=== PATIENT | male | born 1975 | race Caucasian/White ===

== ENCOUNTER 2021-07-10 18:19 | Emergency (ER) | payer BC, SELFPAY ==
--- NOTE | 2021-07-10 18:24 | ED.SKABFB ---
HPI - Skin/Abscess/Foreign Bdy General Chief complaint: Skin/Abscess/Foreign Body Stated complaint: Finger on right Hand swollen from a cut Time Seen by Provider: 07/10/21 18:25 Source: patient and RN notes reviewed History of Present Illness HPI narrative: Patient is a 46-year-old male who presents the urgent care with complaints of swelling and redness to the right index finger. Patient states he cut it sometime last week , Friday or Friday. 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 Patient states that he has been using peroxide and Neosporin. States that he has been covering it with a Band-Aid. Denies of any fever, nausea, vomiting. Patient does take hydrocodone for pain. No other acute complaints. No acute distress noted. Patient under the plan of care. Some parts of this dictation were generated by voice recognition software and may contain typographical and/or grammatical inaccuracies. Related Data Home Medications Medication Instructions Recorded Confirmed albuterol sulfate 90 mcg INHALATION DIRECTED PRN 07/10/21 07/10/21 alprazolam 0.5 mg PO BID 07/10/21 07/10/21 diclofenac sodium 75 mg PO BID 07/10/21 07/10/21 hydrocodone-acetaminophen 7.5 tablet PO Q8-10H 07/10/21 07/10/21 Allergies Allergy/AdvReac Type Severity Reaction Status Date / Time No Known Allergies Allergy Verified 07/10/21 18:32 Review of Systems Review of Systems: CONSTITUTIONAL: Denies fever, chills, or sweats. EYES: Denies visual changes, redness, or discharge. ENT: Denies rhinorrhea, congestion, sore throat, or otalgia. CARDIOVASCULAR: Denies chest pain, palpitations, or edema. RESPIRATORY: Denies cough or dyspnea. GASTROINTESTINAL: Denies abdominal pain, nausea, vomiting, or diarrhea. GENITOURINARY: Denies dysuria or hematuria. SKIN: Reports as redness and swelling surrounding the cut to the right index finger MUSCULOSKELETAL: Denies back pain, joint pain, or myalgia. NEUROLOGIC: Denies headache, numbness, or weakness. All other systems reviewed are negative, except as documented in HPI. PMFSH Comments At the time of my signature, I reviewed and agree with the nursing past medical, surgical, social, and family history. There is no relevant family history pertinent to the patient complaint. Exam Narrative: GENERAL: This is a well-nourished, well-developed patient, in no apparent distress. HEAD: normocephalic, atraumatic. EYES: PERRL. Sclera clear/white. Vision is grossly intact. EARS: External ears normal NOSE: External nose normal with no obvious nasal discharge, nares without redness, no rhinorrhea. THROAT: Mucous membranes moist NECK: Neck supple CARDIOVASCULAR: Regular rate and rhythm without murmurs, gallops, or rubs. RESPIRATORY: Clear to auscultation. Breath sounds equal bilaterally. No wheezes, rales, or rhonchi. SKIN: 0.25 cm open wound to the distal aspect of the right index finger with surrounding erythema and edema NEURO: awake, alert, and oriented to person, place and time. There were no obvious focal neurologic abnormalities. EXTREMITIES: No clubbing, cyanosis, or edema. Capillary refill the right upper extremity within normal limits with positive strong right radial pulse. No obvious deformity or noted to the right index finger. Course Vital Signs Vital signs: Vital Signs Temperature 98.4 F 07/10/21 18:28 Pulse Rate 83 07/10/21 18:28 Respiratory Rate 20 07/10/21 18:28 Blood Pressure 138/85 07/10/21 18:28 Pulse Oximetry 100 07/10/21 18:28 Temperature 98.4 F 07/10/21 18:28 Pulse Rate 83 07/10/21 18:28 Respiratory Rate 20 07/10/21 18:28 Blood Pressure 138/85 07/10/21 18:28 Pulse Oximetry 100 07/10/21 18:28 Reviewed MDM - Skin/Abscess/Foreign Bdy MDM Narrative Medical decision making narrative: Advised the patient to keep the wound very clean with plain Dial soap and water. Stop the use of peroxide. Use the prescription cream
[2021-07-10 18:28] VITALS: BP 138/85; PULSE 83; RESP 20; TEMP 36.9; O2SAT 100
== END 2021-07-10 18:43 | disposition home or self-care (01) ==
PROVIDERS: Emergency Provider Nurse Practitioner Family; PCP Family Medicine
DX: L03.011 Cellulitis of right finger (principal)
CPT/HCPCS: 99213; G0463

== ENCOUNTER 2022-02-16 13:21 | Emergency (ER) | payer BC, SELFPAY ==
--- NOTE | ~2022-02-16 | US_ITS ---
US abdomen limited DATE: 02/16/2022 14:44 INDICATION: Epigastric abdominal pain. Nausea. TECHNIQUE: Real-time imaging of liver, pancreas, gallbladder, Doppler analysis COMPARISON: None FINDINGS: No hepatic or pancreatic space-occupying mass lesion is detected. Normal hepatopedal portal venous flow direction. The gallbladder is appears relatively contracted and the gallbladder wall mildly prominent thickness of 1.8 mm, possibly due to contracted state. No gallstones or pericholecystic fluid. Negative sonogra phic Valdes's sign. The common bile duct measures 5.3 mm, normal. IMPRESSION: Limited distention of the gallbladder; otherwise negative Reviewed, dictated and finalized at [facility] Reviewed, dictated and finalized at [facility].
--- NOTE | ~2022-02-16 | CT_ITS ---
EXAMINATION: CTA chest PE abdomen pel DATE: 02/16/2022 15:45 INDICATION: Midsternal chest pressure. Chest pain, abdominal pain, body aches, lethargy. Elevated d-d clive. TECHNIQUE: Computed tomography angiography (CTA) of the chest was performed with 100 mL Omnipaque-350 intravenous contrast timed to evaluate the pulmonary arteries. Coronal maximum intensity projection 3D-reconstructions were created by the technologist. Automated exposure control and iterative reconst ruction technique were employed. Exam dose: 2161.48 mGy-cm total exam DLP. COMPARISON: 02/16/2022 2 view chest FINDINGS: There is diagnostic contrast enhancement of the pulmonary arteries and no evidence of pulmo nary embolism. No thoracic aortic aneurysm or dissection. Normal heart size. No pericardial or pleural effusion. No hilar or mediastinal mass lesion or lymphadenopathy. No pulmonary infiltrate or consolidation or pulmonary mass lesion is evident. Normal morphology of the adrenal glands. Included upper abdominal structures are unremarkable. Degenerative changes of the lower cervical spine, the thoracic spine particularly prominent degenerat idania disc disease of the included upper lumbar spine. No suspicious osteolytic or osteoblastic lesions . IMPRESSION: No evidence of pulmonary embolism Reviewed, dictated and finalized at [facility] Reviewed, dictated and finalized at [facility].
--- NOTE | ~2022-02-16 | XR_ITS ---
EXAMINATION: XR chest 2V 02/16/2022 13:43 INDICATION: Worsening chest pain PROCEDURE: 2 view chest COMPARISON: No prior studies for comparison. FINDINGS: The lungs are clear. The cardiomediastinal silhouette is within normal limits. There are no pleural effusions. There is no pneumothorax suspected. IMPRESSION: 1: NO ACUTE CARDIOPULMONARY DISEASE. Reviewed, dictated and finalized at [facility].
--- NOTE | 2022-02-16 13:23 | ECG_ITS ---
Measurements Intervals [place] Rate: 73 P: 51 [place]: 154 QRS: 44 QRSD: 109 T: 27 QT: 379 QTc: 418 Interpretive Statements SINUS RHYTHM SEPTAL MYOCARDIAL INFARCTION , OF INDETERMINATE AGE [40+ ms Q WAVE IN V1/V2] ABNORMAL ECG NO PREVIOUS ECG AVAILABLE FOR COMPARISON Electronically Signed On 02-17-2022 12:28:10 CDT by Karan Kate M.D.
[2022-02-16 13:36] VITALS: BP 143/99; PULSE 72; RESP 18; O2SAT 99
[2022-02-16 13:38] VITALS: PULSE 70
[2022-02-16 13:42] VITALS: PULSE 67; RESP 18; O2SAT 98
[2022-02-16 13:50] LABS: Basophils Percent Auto 0.4 % (0.2-1.2); Eosinophils Absolute Auto 0.1 K/mm3 (0-0.3); Eosinophils Percent Auto 0.7 % (0-4.4); Hematocrit 48.2 % (42.0-52.0); Hemoglobin 16.3 g/dL (14.0-18.0); Immature Granulocyte Absolute 0.02 K/mm3 (0.00-0.031); Immature Granulocyte Percent A 0.2 % (0-0.5); Lymphocytes Absolute Auto 1.85 K/mm3 (0.9-3.2); Lymphocytes Percent Auto 20.7 % (18.3-44.2); Mean Corpuscular HGB Conc 33.8 g/dl (32-36); Mean Corpuscular Hemoglobin 32.8 pg (26-34); Monocytes Absolute Auto 0.7 K/mm3 (0.1-0.6); Monocytes Percent Auto 7.3 % (2.6-8.5); Neutrophils Absolute Auto 6.3 K/mm3 (1.3-6.7); Neutrophils Percent Auto 70.7 % (45.5-73.1); Platelet Count Result 198 k/mm3 (150-375); Red Blood Count 4.97 M/mm3 (4.6-6.20); Red Cell Distribution Width 13.3 % (11.5-14.5); White Blood Count 8.9 K/mm3 (4.5-10.0)
[2022-02-16 14:00] LABS: Alanine Aminotransferase 29 U/L (4-50); Albumin Level 4.6 g/dL (3.5-5.1); Alkaline Phosphatase 57 U/L (38-126); Anion Gap 5 mmol/L (8-16); Aspartate Amino Transferase 34 U/L (17-59); Bilirubin,Total 0.5 mg/dL (0.2-1.3); Blood Urea Nitrogen 17 mg/dL (9-20); Calcium 9.2 mg/dL (8.4-10.2); Carbon Dioxide 30 mmol/L (22-30); Chloride 104 mmol/L (98-107); Estimated Glomerular Filt Rate > 60; Glucose 111 mg/dL (65-110); Lipase 188 U/L (23-300); Potassium 4.2 mmol/L (3.4-5.0); Prothrombin Time 13.1 Seconds (11.1-14.7); Sodium 139 mmol/L (137-145)
[2022-02-16] MEDS: KETOROLAC 30 MG/ML VIAL (*BKC) IV PUSH (14:07)
[2022-02-16] MEDS: SODIUM CHLORIDE 0.9% IV 1,000 ML 999 ML IV CONT (14:07)
[2022-02-16] MEDS: ONDANSETRON INJ 4 MG/2 ML VIAL IV PUSH (14:08)
[2022-02-16 14:11] LABS: Troponin I 0.014 ng/mL (0.000-0.034)
[2022-02-16 14:12] VITALS: BP 156/108; PULSE 59; RESP 26; O2SAT 100
[2022-02-16 14:16] VITALS: BP 147/106; PULSE 79; RESP 14; O2SAT 100
[2022-02-16 15:03] VITALS: O2SAT 100
[2022-02-16 15:15] LABS: D Dimer 0.53 ug/mL (<0.48)
--- NOTE | 2022-02-16 16:49 | ED.CHESTPAIN ---
HPI - Chest Pain General Chief Complaint: Chest Pain Stated Complaint: chest pain, nausea x1 week intermittently Time Seen by Provider: 02/16/22 13:27 Source: RN notes reviewed History of Present Illness HPI narrative: Patient presents emergency department from home for intermittent chest pain. Patient states for the past 2 weeks he has been having intermittent episodes were he gets a tightness in his lower chest is associated with a feeling of shortness of breath and nausea states that nothing seems to cause these episodes recur nothing makes it better or worse states he has several day he denies any fevers or chills, vomiting diarrhea or any other symptoms. States he has had similar episodes before in the past has been worked up including stress test that have been negative. He states he does have feelings of being anxious with the symptoms but denies any full panic attack Related Data Home Medications Medication Instructions Recorded Confirmed albuterol sulfate 90 mcg INHALATION DIRECTED PRN 07/10/21 07/10/21 alprazolam 0.5 mg PO BID 07/10/21 07/10/21 cyclobenzaprine 5 mg PO TID 07/10/21 07/10/21 diclofenac sodium 75 mg PO BID 07/10/21 07/10/21 hydrocodone-acetaminophen 7.5 tablet PO Q8-10H 07/10/21 07/10/21 tramadol 50 mg PO TID 07/10/21 07/10/21 Allergies Allergy/AdvReac Type Severity Reaction Status Date / Time No Known Allergies Allergy Verified 07/10/21 18:32 Review of Systems Review of Systems: Gen.: Denies fevers or chills Eyes: Denies eye pain or visual change ENT: Denies congestion Respiratory: Reports feeling shortness of breath or chest pain CV: Reports lower midsternal chest pain GI: Denies abdominal pain reports nausea denies vomiting or diarrhea Musculoskeletal: Denies back pain or muscle pain Neuro: Denies numbness, tingling, weakness or focal weakness Skin: Denies rash Except as documented, all other systems reviewed and negative PMF Past Medical History Medical History (Updated 02/16/22 @ 17:38 by Jarad Harkins DO) Patient denies significant medical history Social History Social History (Updated 02/16/22 @ 17:38 by Jarad Harkins DO) Smoking status: Current every day smoker Gender identity (if verbalized by the patient): Male Exam Narrative: APPEARANCE: No acute distress, nontoxic, resting in bed EYES: EOMI HEENT: Normocephalic, atraumatic, OMM RESPIRATORY: No respiratory distress Clear to auscultation bilaterally with no rhonchi wheezing or rales. CARDIOVASCULAR: Regular rate and rhythm without murmurs rubs or gallops. ABDOMINAL: Soft, nontender, nondistended, no rebound or guarding MUSCULOSKELETAl: Moves all extremities. No clubbing, cyanosis or edema. NEURO: Awake and alert. Following commands, speech normal, no focal deficits SKIN:: Warm, dry. No rashes lesions or abrasions PSYCHIATRIC: Normal affect/mood, Course Course Emergency Course: Discussed with patient he states he has had stress test performed past has been negative for similar symptoms Discussed with Dr. Kate agrees with consult Discussed with patient patient and family results of work-up discussed need for admission. This time patient states he does not wish to stay in the hospital as he had work-ups before that have been negative and does not want to stay overnight in the facility. Patient has chosen to refuse further care. Risks of an incomplete evaluation and treatment were discussed with the patient including potential for myocardial infarction or permanent disability were discussed with the patient seems to understand these risks but still desires to refuse further care. Patient recommended to follow up with her primary care physician in the next possible interval, specifically they?re told they can return to the ED at any time to resume care.. Patient was given discharge instructions and AMA form was filled out. The patient was given cardiology for referral and told he may return anytime for f
[2022-02-16 16:50] LABS: Troponin I 0.014 ng/mL (0.000-0.034)
== END 2022-02-16 17:37 | disposition home or self-care (01) ==
PROVIDERS: Emergency Medicine; Emergency Provider Emergency Medicine; PCP Nurse Practitioner Family
DX: R07.89 Other chest pain (principal); F17.200 Nicotine dependence, unspecified, uncomplicated; R94.31 Abnormal electrocardiogram [ECG] [EKG]
CPT/HCPCS: 36415; 71046; 71275; 74177; 76705; 80053; 83690; 84484; 85025; 85380; 85610; 85730; 87804; 93005; 96361; 96374; 96375; 99284; A9270; J1885; J2405; J7030; Q9967

== ENCOUNTER 2022-02-18 10:11 | Observation (INO) | payer BC, SELFPAY ==
[2022-02-18] VITALS (10 sets, daily range): BP systolic 112–154; BP diastolic 78–102; PULSE 65–79; RESP 14–20; TEMP 36.4–37.3; O2SAT 97–99; BMI 38.5
--- NOTE | ~2022-02-18 | XR_ITS ---
EXAMINATION: XR chest 2V 02/18/2022 10:41 INDICATION: Midsternal chest pain PROCEDURE: 2 view chest COMPARISON: 02/16/2022 FINDINGS: The lungs are clear. The lungs are hyperinflated which is consistent with, but not diagnost ic of chronic obstructive pulmonary disease. The cardiomediastinal silhouette is within normal limits . There are no pleural effusions. There is no pneumothorax suspected. IMPRESSION: 1: NO ACUTE CARDIOPULMONARY DISEASE. Reviewed, dictated and finalized at [facility].
--- NOTE | ~2022-02-18 | NM_ITS ---
EXAMINATION: NM iman stress w perfusion DATE: 02/19/2022 11:19 CDT INDICATION: Chest pain TECHNIQUE: Rest images were obtained following intravenous administration of 8.9 mCi Tc99m tetrofosmi n (Myoview). The patient was infused intravenously with Lexiscan (regadenoson). Then, 29.3 mCi Tc99m tetrofosmin (Myoview) was administered intravenously, and stress images were obtained. Data was recon structed into short axis and horizontal and vertical long axis SPECT images. Gated SPECT images were also obtained. COMPARISON: None. FINDINGS: There is no definite reversible or fixed perfusion abnormality to suggest ischemia or infar ction. There is no segmental wall motion abnormality. Left ventricular ejection fraction measures 4 9%. IMPRESSION: 1. No definite ischemia or infarct. 2. Diminished left ventricular ejection fraction measuring 49%. Reviewed, dictated and finalized at location A.
--- NOTE | 2022-02-18 10:15 | ECG_ITS ---
Measurements Intervals [place] Rate: 70 P: 50 [place]: 142 QRS: 37 QRSD: 110 T: 30 QT: 383 QTc: 416 Interpretive Statements SINUS RHYTHM NORMAL ECG COMPARED TO ECG 02/16/2022 13:29:20 SLIGHTLY DIFFERENT LEAD PLACEMENT V2 Electronically Signed On 02-18-2022 15:43:10 CDT by Jorge Pisano M.D.
[2022-02-18 10:30] LABS: Basophils Absolute Auto 0.1 K/mm3 (0.0-0.1); Basophils Percent Auto 0.7 % (0.2-1.2); Eosinophils Absolute Auto 0.1 K/mm3 (0-0.3); Eosinophils Percent Auto 1.2 % (0-4.4); Hematocrit 47.4 % (42.0-52.0); Hemoglobin 16.4 g/dL (14.0-18.0); Immature Granulocyte Absolute 0.02 K/mm3 (0.00-0.031); Immature Granulocyte Percent A 0.2 % (0-0.5); Lymphocytes Absolute Auto 1.82 K/mm3 (0.9-3.2); Lymphocytes Percent Auto 21.1 % (18.3-44.2); Mean Corpuscular HGB Conc 34.6 g/dl (32-36); Mean Corpuscular Hemoglobin 33.3 pg (26-34); Mean Corpuscular Volume 96.1 fl (80-100); Mean Platelet Volume 10.8 fl (7.4-10.4); Monocytes Absolute Auto 0.6 K/mm3 (0.1-0.6); Monocytes Percent Auto 7.4 % (2.6-8.5); Neutrophils Percent Auto 69.4 % (45.5-73.1); Platelet Count Result 195 k/mm3 (150-375); Red Blood Count 4.93 M/mm3 (4.6-6.20); Red Cell Distribution Width 13.2 % (11.5-14.5); White Blood Count 8.6 K/mm3 (4.5-10.0)
[2022-02-18 10:43] LABS: Alanine Aminotransferase 26 U/L (4-50); Albumin Level 4.4 g/dL (3.5-5.1); Alkaline Phosphatase 56 U/L (38-126); Anion Gap 8 mmol/L (8-16); Aspartate Amino Transferase 29 U/L (17-59); Bilirubin,Total 0.6 mg/dL (0.2-1.3); Blood Urea Nitrogen 18 mg/dL (9-20); Calcium 8.8 mg/dL (8.4-10.2); Carbon Dioxide 23 mmol/L (22-30); Chloride 107 mmol/L (98-107); Estimated CRCL calculation 186 ml/min; Estimated Glomerular Filt Rate > 60; Glucose 120 mg/dL (65-110); Lipase 196 U/L (23-300); Potassium 3.9 mmol/L (3.4-5.0); Sodium 138 mmol/L (137-145)
[2022-02-18 10:54] LABS: Troponin I 0.013 ng/mL (0.000-0.034)
[2022-02-18] MEDS: LIDOCAINE HCL 2% VISC SOLN 15 ML UDC 20 ML PO (11:48)
[2022-02-18] MEDS: MAG HYDROX/AL HYDROX/SIMETH 30 ML UDC PO (11:48)
[2022-02-18 12:01] LABS: Prothrombin Time 13.2 Seconds (11.1-14.7)
[2022-02-18 12:02] LABS: Partial Thromboplastin Time 28.8 SECONDS (22.3-36.8)
--- NOTE | 2022-02-18 12:07 | ED.CHESTPAIN ---
HPI - Chest Pain General Chief Complaint: Chest Pain Stated Complaint: chest pain, left AMA on 02/16 Time Seen by Provider: 02/18/22 11:32 Source: patient History of Present Illness HPI narrative: Patient presents with intermittent chest pain that is achy, no radiation, no clear aggravating or relieving factors. It is associated with some shortness of breath and upper abdominal pain as well as nausea. Denies any fevers, cough, congestion, diaphoresis denies any significant family history denies any recent hospitalizations prior history of DVT. Does report he is a smoker. Patient was previous evaluated for this a couple days ago here in the ER had a CTA as well as 2 troponins with a recommendation for admission for further evaluation. Patient declined and signed out AMA. His pain got worse since that evaluation so he returned to the ER. Related Data Home Medications Medication Instructions Recorded Confirmed albuterol sulfate 90 mcg INHALATION DIRECTED PRN 07/10/21 02/18/22 alprazolam 0.5 mg PO BID PRN 07/10/21 02/18/22 cyclobenzaprine 5 mg PO TID PRN 07/10/21 02/18/22 diclofenac sodium 75 mg PO BID 07/10/21 02/18/22 hydrocodone-acetaminophen 7.5 tablet PO TID 07/10/21 02/18/22 Allergies Allergy/AdvReac Type Severity Reaction Status Date / Time No Known Allergies Allergy Verified 02/18/22 16:23 Review of Systems Review of Systems: CONSTITUTIONAL: Denies fever, chills, or sweats. EYES: Denies visual changes, redness, or discharge. ENT: Denies rhinorrhea, congestion, sore throat, or otalgia. CARDIOVASCULAR: Denies palpitations, or edema. RESPIRATORY: Denies cough GASTROINTESTINAL: Denies abdominal pain, nausea, vomiting, or diarrhea. GENITOURINARY: Denies dysuria or hematuria. SKIN: Denies rash or itching. MUSCULOSKELETAL: Denies back pain, joint pain, or myalgia. NEUROLOGIC: Denies headache, numbness, dizziness, or weakness. PSYCHIATRIC: Denies anxiety or depression. All systems reviewed & are unremarkable except as noted in HPI and below PMFSH Past Medical History Medical History Anxiety Chronic knee pain Surgical History Surgical History History of arthroscopy of left knee X3 History of tonsillectomy Family History Family History Father Accidental in work place Social History Social History (Updated 02/18/22 @ 19:05 by Gaby Swartz PA-C) Social History: Surrogate decision-maker: Jocelyn Saleh, significant other. CODE STATUS: Full code Smoking packs per day: 2 Smoking cigarettes per day: 40.0 Years smoked: 30 Smoking pack-years: 60.00 Smoking status: Current every day smoker Alcohol intake: never Substance use: former Additional living arrangements comments: The patient lives with his family in [place]. 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 Spiritual care concerns: No Exam Narrative: GENERAL: Well-appearing, well-nourished, and in no acute distress. HEAD: Normocephalic, atraumatic. EYES: PERRLA and EOMI. ENT: Nares clear, no rhinorrhea or epistaxis. Mucous membranes moist. NECK: Supple. No masses. No JVD CHEST: Clear to auscultation. No respiratory distress. No wheezes rales or rhonchi HEART: Regular rate and rhythm. No murmur heard. Normal peripheral pulses. ABDOMEN: Soft, nontender, nondistended, normal active bowel sounds. EXTREMITIES: Normal range of motion. No edema. SKIN: Warm, dry, no rash. NEURO: No focal deficits. Alert and oriented x3. PSYCH: Normal mood and affect. Course Reevaluation(s) Reevaluation #1: Case cussed with cardiology and hospitalist team. Given the prior recommendation for admission and symptoms persistent patient benefit from expedited cardiac evaluation. Patient is now comfortable with inpatient plan. Patient was accep
--- NOTE | 2022-02-18 12:35 | PM.IMHP ---
H&P: HPI History of Present Illness Date/Time: 02/18/22 12:35 Chief Complaint: Chest pain. Narrative: This is a 46-year-old male with anxiety and chronic knee pain for which he takes diclofenac twice daily who presented to the emergency department via private vehicle from home for evaluation of chest pain. He endorses intermittent chest pain that has been off and on for approximately 2 months. He sees no pattern as to when it occurs and he specifically has not noticed that it is worse with activity or meals. He has a difficult time describing the discomfort but it sounds like it is a pretty significant aching discomfort with occasional radiation up into the shoulders. He was seen in the emergency department for the symptoms several days ago where he had negative troponin and and aside from diverticulosis of the colon the CT of the chest, abdomen, and pelvis were unremarkable. On exam he is quite tender to palpation in the high epigastric region and with further questioning he does admit to occasional bloating and belching though he denies indigestion symptoms. 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 He drinks at least a cup of coffee of day and up to 4 to 6 Monster drinks a day He has not noticed any blood in the stool. He has no personal or family history of coronary artery disease. Review of Systems Review of Systems: Twelve systems were reviewed and are negative except for as per HPI. [facility] Past Medical History Medical History Anxiety Chronic knee pain Surgical History Surgical History History of arthroscopy of left knee X3 History of tonsillectomy Family History Family History Father Accidental in work place Social History Social History (Updated 02/18/22 @ 19:05 by Gaby Swartz PA-C) Social History: Surrogate decision-maker: Jocelyn Saleh, significant other. CODE STATUS: Full code Smoking packs per day: 2 Smoking cigarettes per day: 40.0 Years smoked: 30 Smoking pack-years: 60.00 Smoking status: Current every day smoker Alcohol intake: never Substance use: former Additional living arrangements comments: The patient lives with his family in [place]. 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 Spiritual care concerns: No Meds Home Medications and Allergies Home Medications Medication Instructions Recorded Confirmed Type albuterol sulfate 90 mcg INHALATION DIRECTED PRN 07/10/21 02/18/22 History alprazolam 0.5 mg PO BID PRN 07/10/21 02/18/22 History cyclobenzaprine 5 mg PO TID PRN 07/10/21 02/18/22 History diclofenac sodium 75 mg PO BID 07/10/21 02/18/22 History hydrocodone-acetaminophen 7.5 tablet PO TID 07/10/21 02/18/22 History Allergies Allergy/AdvReac Type Severity Reaction Status Date / Time No Known Allergies Allergy Verified 02/18/22 16:23 Vital Signs Vital Signs - 24 hr 02/18/22 10:20 Temperature 97.6 F Pulse Rate 73 Respiratory Rate 18 Blood Pressure 154/102 H Pulse Oximetry 97 Exam Narrative: General: Moderately ill-appearing male lying on his left side in bed. Weight: 129.5 kg. BMI: 37.7 HEENT: PERRL, EOMI. Sclerae anicteric. Tacky mucous membranes. Neck: Supple. Full sepulveda. Respiratory: Lungs are clear to auscultation bilaterally. Cardiovascular: Regular rate and rhythm with S1-S2. Chest: No tenderness to palpation over the chest wall. Gastrointestinal: Abdomen is soft and nondistended with positive bowel sounds. He is quite tender to palpation in the epigastric region. No guarding or rebound tenderness. Skin: Warm and dry. No rash or lesions on limited exam. Extremities: No cyanosis, clubbing, or edema. Radial and p
[2022-02-18] MEDS: ASPIRIN 81 MG CHEWABLE TABLET 324 MG PO (13:14)
[2022-02-18] MEDS: HYDROmorphone HCL INJ (*CRX) 1 MG/ML SYR IV PUSH ×2 (13:36→20:00)
[2022-02-18] MEDS: PANTOPRAZOLE SODIUM IV 40 MG VIAL IV PUSH (13:38)
[2022-02-18 13:48] LABS: Troponin I 0.013 ng/mL (0.000-0.034)
--- NOTE | 2022-02-18 14:45 | ADMGEN ---
This patient, Desmond Figueroa, was admitted to IMU Room 212-01. Patient/family oriented to hospital policies and general routines including ID bracelet, bed and alarms, visiting hours, pain management, procedures, bathroom and other care routines, personal items, smoking policy, room service/diet, and visiting hours. Information on how to activate the Rapid Response Team has been discussed. Patient/Family are encouraged to report perceived risks to care and to ask questions if they do not understand what they are told or what they should do.
--- NOTE | 2022-02-18 15:13 | PM.CNCAR ---
Assessment and Plan Assessment and plan (1) Chest pain: Qualifiers: Chest pain type: unspecified Qualified Code(s): R07.9 - Chest pain, unspecified Code(s): R07.9 - Chest pain, unspecified Status: Acute Assessment and Plan: His chest pain is atypical. Serial troponins are negative and his EKG did not have any acute ischemic changes. Chest pain is probably non-cardiac (wonder if GERD?) but will proceed with nuclear stress test tomorrow, he does have some risk factors. Check echo Has not had routine follow up with PCP, will check lipids Lexiscan stress test tomorrow NPO after mn for stress test Further recommendations to follow review of these tests (2) Chronic knee pain: Code(s): M25.569 - Pain in unspecified knee; G89.29 - Other chronic pain Status: Acute Assessment and Plan: Multiple arthroscopes in the past. Pt. states he needs bilat knee total arthroplasty. Takes [place] at home. Management per hospitalist. (3) Tobacco abuse: Code(s): Z72.0 - Tobacco use Status: Acute Assessment and Plan: Counseling was performed History of Present Illness History of Present Illness Consult date/time: 02/18/22 15:13 Requesting physician: Camilo Urrutia MD Consult reason: chest pain Reason For Visit: Chest pain Narrative: Mr. Figueroa is a 46-year-old male with no significant medical history. This is a patient who presents to the emergency department with complaints of chest pain. He did come into the emergency room here at [facility] over the weekend where inpatient admission for evaluation and workup of his chest pain was recommended but the patient left against medical advice. Mr. Figueroa states that he has been having chest pain intermittently for 3-5 months. His chest pain is mild in severity but has become concerning as it has persisted for this length of time. 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 He also has complaints of experiencing lightheadedness and like he is going to pass out after lifting very heavy objects. He says that over the past 6 months or so he is notice that is becoming more difficult for him to lift heavy objects as he becomes extremely fatigued and sometimes short of breath. He does not experience chest pain with this type of activity. His chest pain comes and goes randomly and does not seem to be provoked by physical activity. He reports lower extremity pitting edema that comes and goes. He denies any orthopnea or paroxysmal nocturnal dyspnea. Although the patient does not have any known medical history he does share with me that he has an extensive history of competitive weightlifting, the training for which involved use of injected anabolic steroids for a period of about 20 years. He has an extensive history of tobacco abuse. Currently, patient is not experiencing any chest pain and is comfortable, in no distress. Review of Systems Review of Systems: All systems reviewed & are unremarkable except as noted in HPI and below Constitutional: Constitutional: Reports fatigue and Reports lethargy Eyes: Eyes: Denies change in vision ENT: Reports Normal hearing present, Denies epistaxis and Denies tinnitus Cardiovascular: Cardiovascular: Reports chest pain, Reports pedal edema, Reports leg edema, Reports lightheadedness and Denies palpitations Respiratory: Respiratory: Denies chest congestion, Reports dyspnea and Reports dyspnea on exertion Gastrointestinal: Gastrointestinal: Denies melena, Denies hematochezia and Reports nausea Genitourinary: Genitourinary: Denies urinary frequency, Denies urinary hesitancy and Denies urinary urgency Musculoskeletal: Musculoskeletal: Reports back pain and Reports arthralgias Integumentary/Breasts: Skin/Breast: Denies unusual bruising and Denies wounds Neurologic: Denies confusion, Denies headache(s) and Denies numbness Psychiatric: Psychiatric: De
[2022-02-18 16:34] LABS: Troponin I 0.013 ng/mL (0.000-0.034)
[2022-02-18 16:51] LABS: Cholesterol 183 mg/dL (0-200); HDL Direct 42 mg/dL; Triglycerides 94 mg/dL (<150)
[2022-02-18 17:07] LABS: LDL Cholesterol Direct 97 mg/dL
[2022-02-18] MEDS: ALPRAZolam (*CRX) 0.5 MG TABLET PO (22:55)
[2022-02-19] VITALS (7 sets, daily range): BP systolic 131–145; BP diastolic 88–97; PULSE 74–88; RESP 14–18; TEMP 36.7–36.8; O2SAT 99–100
--- NOTE | 2022-02-19 | EST_ITS ---
Patient Info Name: Desmond Figueroa Age: 46 years : 1975 Gender: Male Ht: 73 in Wt: 285 lbs BSA: 2.63 m2 HR: 73 bpm BP: 111 / 85 mmHg Heart Rhythm: Sinus Rhythm Exam Date: 02/19/2022 10:04 AM Exam Location: [facility] Stress Patient Status: Inpatient Admit Date: 02/18/2022 Staff Ordering Physician: Carolyn Todd Attending Provider: Anton Felder MD Exercise Technologist: Pari Gonzales, CT Exam Type: CA stress iman w NM Study Info Indications R07.89 - Other chest pain A regadenoson stress test was performed. Summary 1. Please correlate with nuclear medicine images, reported separately. 2. No abnormal ST-T wave changes with lexiscan. Protocol: Lexiscan Stress ECG Details Stage: REST Duration (min): 1 min : 3 sec HR (bpm): 75 SBP (mmHg): 111 DBP (mmHg): 85 Stage: REST Duration (min): 4 min : 59 sec HR (bpm): 74 SBP (mmHg): 111 DBP (mmHg): 85 Stage: STAGE 1 Duration (min): 1 min : 0 sec HR (bpm): 86 SBP (mmHg): 126 DBP (mmHg): 87 Stage: RECOVERY Duration (min): 1 min : 0 sec HR (bpm): 96 SBP (mmHg): 126 DBP (mmHg): 87 Stage: RECOVERY Duration (min): 2 min : 0 sec HR (bpm): 93 SBP (mmHg): 126 DBP (mmHg): 87 Stage: RECOVERY Duration (min): 3 min : 0 sec HR (bpm): 86 SBP (mmHg): 137 DBP (mmHg): 86 Stage: RECOVERY Duration (min): 3 min : 8 sec HR (bpm): 85 SBP (mmHg): 137 DBP (mmHg): 86 Rest HR: 74 bpm Peak HR: 100 bpm Rest Sys BP: 111 mmHg Peak Sys BP: 137 mmHg Max Pred HR: 175 bpm % Max Pred HR: 57 % Target HR: 149 bpm Max RPP: 13,700 bpm*mmHg BP Response: Normal blood pressure response Termination Reason: Completed protocol Cardiac Symptoms: None Total Time: 1 min : 0 sec Rest Fuentes BP: 85 mmHg Peak Fuentes BP: 86 mmHg Total Dose: 0.4 mg Resting ECG Normal sinus rhythm. Resting ST/T wave changes. Meets criteria for left ventricular hypertrophy. Cannot rule out inferior infarction. Stress ECG No abnormal ST/T wave changes with Lexiscan. Arrhythmias None. Report Signatures
--- NOTE | 2022-02-19 | ECHO_ITS ---
Patient Info Name: Desmond Figueroa Age: 46 years : 1975 Gender: Male Ht: 73 in Wt: 285 lbs BSA: 2.63 m2 HR: 76 bpm BP: 143 / 88 mmHg Heart Rhythm: Sinus Rhythm Technical Quality: Fair Exam Date: 02/19/2022 6:20 AM Exam Location: [facility] Pulmonary Patient Status: Inpatient Admit Date: 02/18/2022 Staff Ordering Physician: Carolyn Todd [employer] Worker: Darlene Daniel RDCS Attending Provider: Anton Felder MD Referring Physician: Peyton RIVERA; Exam Type: CA echo doppler color flow Study Info Indications - cp Complete two-dimensional, color flow and Doppler transthoracic echocardiogram is performed. Summary 1. Complete two-dimensional, color flow and Doppler transthoracic echocardiogram is performed. 2. Left ventricular chamber dimension is normal. 3. Left ventricular systolic function is normal, estimated at 55-60%. 4. There is no increased left ventricular wall thickness. 5. Left ventricular septal wall motion is abnormal with septal motion related to bundle branch block. 6. The left ventricular diastolic function is grade I diastolic dysfunction. 7. There is mild tricuspid valve regurgitation. 8. Moderate pulmonary hypertension, estimated pulmonary arterial systolic pressure is 49 mmHg. Left Ventricle Left ventricular chamber dimension is normal. Left ventricular systolic function is normal, estimated at 55-60%. There is no increased left ventricular wall thickness. Left ventricular septal wall motion is abnormal with septal motion related to bundle branch block. The left ventricular diastolic function is grade I diastolic dysfunction. Right Ventricle Right ventricular chamber dimension is normal. Right ventricular systolic function is normal. Left Atria Left atrial chamber dimension is normal. Right Atria Right atrial chamber dimension is normal. Atrial Septum Intact interatrial septum visualized by color flow imaging. Aortic Valve The aortic valve is trileaflet. There is no aortic valve sclerosis. There is no aortic valve stenosis. There is trace aortic valve regurgitation. Pulmonic Valve The pulmonic valve is normal. There is no pulmonic valve stenosis. There is trace pulmonic regurgitation. Mitral Valve The mitral valve has thickened leaflets. There is no mitral valve stenosis. There is trace mitral valve regurgitation. Tricuspid Valve The tricuspid valve leaflets are normal. There is no significant tricuspid valve stenosis. There is mild tricuspid valve regurgitation. Moderate pulmonary hypertension, estimated pulmonary arterial systolic pressure is 49 mmHg. Pericardium/Pleural The pericardium appears normal. There is no pericardial effusion. Inferior Vena Cava Dilated inferior vena cava with <50% collapse upon inspiration consistent with elevated right atrial pressure, 15 mmHg. Aorta The aortic root size at the sinus of Valsalva is normal. Left Ventricular Outflow Tract Name Value Normal LVOT 2D LVOT Diameter 2.4 cm LVOT Doppler LVOT Peak Gradient 6 mmHg LVOT Mean Gradient 3 mmHg
[2022-02-19] MEDS: HYDROmorphone HCL INJ (*CRX) 1 MG/ML SYR IV PUSH (05:14)
[2022-02-19 05:29] LABS: Hematocrit 44.6 % (42.0-52.0); Hemoglobin 15.2 g/dL (14.0-18.0); Mean Corpuscular HGB Conc 34.1 g/dl (32-36); Mean Corpuscular Hemoglobin 32.9 pg (26-34); Mean Corpuscular Volume 96.5 fl (80-100); Mean Platelet Volume 10.8 fl (7.4-10.4); Platelet Count Result 181 k/mm3 (150-375); Red Blood Count 4.62 M/mm3 (4.6-6.20); Red Cell Distribution Width 13.2 % (11.5-14.5); White Blood Count 8.4 K/mm3 (4.5-10.0)
[2022-02-19 05:48] LABS: Anion Gap 6 mmol/L (8-16); Blood Urea Nitrogen 15 mg/dL (9-20); Calcium 8.5 mg/dL (8.4-10.2); Carbon Dioxide 25 mmol/L (22-30); Chloride 107 mmol/L (98-107); Estimated CRCL calculation 189 ml/min; Estimated Glomerular Filt Rate > 60; Glucose 102 mg/dL (65-110); Magnesium 2.3 mg/dL (1.6-2.3); Potassium 3.9 mmol/L (3.4-5.0); Sodium 138 mmol/L (137-145)
--- NOTE | 2022-02-19 08:02 | ECG_ITS ---
Measurements Intervals [place] Rate: 81 P: 15 OH: 142 QRS: 21 QRSD: 106 T: 34 QT: 372 QTc: 433 Interpretive Statements SINUS RHYTHM NONSPECIFIC INTRAVENTRICULAR CONDUCTION DELAY ABNORMAL ECG COMPARED TO ECG 02/18/2022 10:24:46 NO SIGNIFICANT CHANGES Electronically Signed On 02-19-2022 11:21:18 CDT by Karan Kate M.D.
--- NOTE | 2022-02-19 10:19 | PM.PNCARD ---
Progress Note: A&P Assessment and Plan (1) Chest pain: Qualifiers: Chest pain type: unspecified Qualified Code(s): R07.9 - Chest pain, unspecified Code(s): R07.9 - Chest pain, unspecified Status: Acute Assessment and Plan: His chest pain is atypical. Serial troponins are negative and his EKG did not have any acute ischemic changes. Chest pain is probably non-cardiac (wonder if GERD?) but will proceed with nuclear stress test tomorrow, he does have some risk factors. Echo performed this morning, awaiting results Lexiscan stress test performed this morning - further recommendations to follow review of results. Not having chest pain this morning (2) Chronic knee pain: Code(s): M25.569 - Pain in unspecified knee; G89.29 - Other chronic pain Status: Acute Assessment and Plan: Multiple arthroscopes in the past. Pt. states he needs bilat knee total arthroplasty. Takes [place] at home. Management per hospitalist. (3) Tobacco abuse: Code(s): Z72.0 - Tobacco use Status: Acute Assessment and Plan: Counseling was performed Subjective Date/time seen: 02/19/22 10:19 Cardiology follow up for chest pain Patient feels well this morning does not have any complaints. Specifically, he denies chest pain and shortness of breath. Review of Systems Review of Systems: All systems reviewed & are unremarkable except as noted in HPI and below Constitutional: Constitutional: Reports fatigue, Denies headache(s) and Reports lethargy Eyes: Eyes: Denies change in vision ENT: Reports Normal hearing present, Denies headache(s), Denies lip swelling, Denies epistaxis and Denies tinnitus Cardiovascular: Cardiovascular: Reports chest pain, Reports pedal edema, Reports leg edema, Reports lightheadedness, Denies palpitations, Reports dyspnea and Reports dyspnea on exertion Respiratory: Respiratory: Denies chest congestion, Reports dyspnea and Reports dyspnea on exertion Gastrointestinal: Gastrointestinal: Denies melena, Denies hematochezia and Reports nausea Genitourinary: Genitourinary: Denies urinary frequency, Denies urinary hesitancy and Denies urinary urgency Musculoskeletal: Musculoskeletal: Reports back pain, Reports arthralgias and Denies numbness Integumentary/Breasts: Skin/Breast: Denies unusual bruising and Denies wounds Neurologic: Reports Normal hearing present, Denies confusion, Denies headache(s) and Denies numbness Psychiatric: Psychiatric: Denies anxiety, Denies confusion and Denies depression Endocrine: Endocrine: Reports fatigue, Denies flushing and Denies palpitations Hematologic/Lymphatic: Hematologic/Lymphatic: Denies easy bleeding and Denies easy bruising Allergic/Immunologic: Allergic/Immunologic: Denies lip swelling Exam Const: General: comfortable and no acute distress; No confusion Orientation/consciousness: No confusion HENMT: Head: normal to inspection and normocephalic Ears: hearing grossly normal bilaterally Eyes: General: appearance normal, both eyes and all related structures Pupils: Equal, round and reactive pupils present Neck: Neck: supple Thyroid: thyroid normal Resp: Effort & Inspection: normal respiratory effort Auscultation: clear to auscultation bilaterally Cardio: Rate: regular rate Rhythm: regular rhythm Heart sounds: no murmurs GI: Auscultation: normal bowel sounds Skin: General skin exam: normal color Neuro: General: No confusion Cranial nerves: Yes Equal, round and reactive pupils present and Yes Normal hearing present Cognition (Neuro): normal cognition Extrem: General: normal to inspection Psych: Mental Status: mental status grossly normal Affect: normal affect Objective Data Vital Signs Vital Signs: Vital Signs - 24 hr 02/18/22 10:20 02/18/22 12:22 02/18/22 14:00 Temperature 36.4 C Pulse Rate 73 65 79 Respiratory Rate 18 17 Blood Pressure 154/102 H 147/97 H Pulse Oximetry 97 99 02/18
--- NOTE | 2022-02-19 13:19 | PM.DS ---
DS: Admitting Diagnosis Discharge Date 02/19/22 Admitting Diagnosis CHEST PAIN DS: Discharge Diagnosis Discharge Diagnosis (1) Chest pain: Qualifiers: Chest pain type: unspecified Qualified Code(s): R07.9 - Chest pain, unspecified Code(s): R07.9 - Chest pain, unspecified Status: Acute Assessment and Plan: 46-year-old male with anxiety and chronic knee pain for which he takes diclofenac twice daily who presented to the emergency department via private vehicle from home for evaluation of chest pain. He endorses intermittent chest pain that has been off and on for approximately 2 months. cardiology rounded on patient - explained Discussed results of lexiscan stress test with patient - no definite ischemia or infarct. Also discussed echo results - normal LVEF with grade I diastolic noncompliance. Pt let AMA soon after hearing these results. (2) Epigastric pain: Code(s): R10.13 - Epigastric pain Status: Acute Assessment and Plan: Pt had abdominal us, CXR, CT of chest abdomen and pelvis all normal (3) Chronic knee pain: Code(s): M25.569 - Pain in unspecified knee; G89.29 - Other chronic pain Status: Chronic (4) Anxiety: Code(s): F41.9 - Anxiety disorder, unspecified Status: Chronic DS: Summary Hospital Course Hospital Course: 46-year-old male with anxiety and chronic knee pain for which he takes diclofenac twice daily who presented to the emergency department via private vehicle from home for evaluation of chest pain. He endorses intermittent chest pain that has been off and on for approximately 2 months. cardiology rounded on patient - explained Discussed results of lexiscan stress test with patient - no definite ischemia or infarct. Also discussed echo results - normal LVEF with grade I diastolic noncompliance. Pt let AMA soon after hearing these res Time Spent with Patient Time attestation: Total time spent providing and/or coordinating discharge services: 20 minutes Exam Narrative: General: Moderately ill-appearing male lying on his left side in bed. Respiratory: Lungs are clear to auscultation bilaterally. Cardiovascular: Regular rate and rhythm with S1-S2. Chest: No tenderness to palpation over the chest wall. Gastrointestinal: Abdomen is soft and nondistended with positive bowel sounds. He is quite tender to palpation in the epigastric region. No guarding or rebound tenderness. Skin: Warm and dry. No rash or lesions on limited exam. Extremities: No cyanosis, clubbing, or edema. Radial and pedal pulses intact. Neurological: Alert. Cranial nerves 2-12 are grossly intact. No gross focal deficits to casual conversation. Psychiatric: Pleasant and cooperative with normal mood and affect. DS: Data Data Completed and Pending Labs on day of discharge: Labs from last 24 hours 02/19/22 02/19/22 02/18/22 05:13 05:13 16:04 WBC 8.4 RBC 4.62 Hgb 15.2 Hct 44.6 MCV 96.5 MCH 32.9 MCHC 34.1 RDW 13.2 Plt Count 181 MPV 10.8 H Sodium 138 Potassium 3.9 Chloride 107 Carbon Dioxide 25 Anion Gap 6 L BUN 15 Creatinine 0.60 L Estim Creat Clear Calc 189 Estimated GFR > 60 Glucose 102 Calcium 8.5 Magnesium 2.3 Troponin I 0.013 Triglycerides Cholesterol LDL Cholesterol Direct HDL Direct 02/18/22 02/18/22 16:00 13:19 WBC RBC Hgb Hct MCV MCH MCHC RDW Plt Count MPV Sodium Potassium Chloride Carbon Dioxide Anion Gap BUN Creatinine Estim Creat Clear Calc Estimated GFR Glucose Calcium Magnesium Troponin I 0.013 Triglycerides 94 Cholesterol 183 LDL Cholesterol Direct 97 HDL Direct 42 Discharge Plan Discharge Attending physician on discharge: Kirsten Huang Consulting providers: Karan Kate ; James Cisse Discharging Clinician: Kirsten Huang
--- NOTE | 2022-02-19 14:13 | PC.NURSE ---
Patient notified of risks of leaving AMA. Dr. Huang notified. Follow up instructions given to patient and recommended patient follow up with primary care physician. Cardiology office to call with follow up appointment. Patient signed AMA form and form placed in chart.
== END 2022-02-19 13:04 | disposition left against medical advice (07) ==
LOC: ANHED 12:21 → ANHIMU 12:48
PROVIDERS: Nurse Practitioner; Physician Assistant; Admitting Provider Family Medicine; Emergency Provider Emergency Medicine; PCP Nurse Practitioner Family; Visit Provider Family Medicine
DX: R07.9 Chest pain, unspecified (principal); R10.13 Epigastric pain; M25.569 Pain in unspecified knee; G89.29 Other chronic pain; F41.9 Anxiety disorder, unspecified; I36.1 Nonrheumatic tricuspid (valve) insufficiency; I27.20 Pulmonary hypertension, unspecified; Z79.51 Long term (current) use of inhaled steroids; Z86.718 Personal history of other venous thrombosis and embolism; F17.210 Nicotine dependence, cigarettes, uncomplicated; Z53.29 Procedure and treatment not carried out because of patient's decision for other reasons
CPT/HCPCS: 36415; 71046; 78452; 80048; 80053; 80061; 83690; 83735; 84484; 85025; 85027; 85610; 85730; 93005; 93017; 93306; 96374; 96375; 96376; 99285; A9270; A9502; C9113; G0378; G0379; J1170; J2785

== ENCOUNTER 2022-05-23 18:15 | Emergency (ER) | payer BC, SELFPAY ==
[2022-05-23 18:28] VITALS: BP 123/76; PULSE 80; RESP 20; TEMP 37.1; O2SAT 98
--- NOTE | 2022-05-23 18:52 | ED.SKABFB ---
HPI - Skin/Abscess/Foreign Bdy General Chief complaint: Skin/Abscess/Foreign Body Stated complaint: rash Time Seen by Provider: 05/23/22 18:52 Source: patient Mode of arrival: ambulatory Limitations: no limitations History of Present Illness HPI narrative: 46 yo M presents with c/o poison alcides to bilateral arms, back, ABD and both legs for several days. Reports he has poison alcides in his backyard. Started after he cut the grass. All systems reviewed and negative except as noted above. Related Data Home Medications Medication Instructions Recorded Confirmed albuterol sulfate 90 mcg/actuation 90 mcg inhalation DIRECTED PRN 07/10/21 05/23/22 aerosol inhaler Shortness Of Breath Or Wheezing diclofenac sodium 75 mg 75 mg PO BID 07/10/21 05/23/22 tablet,delayed release tramadol 50 mg tablet 50 mg PO Q4H PRN Pain 05/23/22 05/23/22 Allergies Allergy/AdvReac Type Severity Reaction Status Date / Time No Known Allergies Allergy Verified 02/18/22 16:23 Review of Systems Review of Systems: CONSTITUTIONAL: Denies fever, chills, or sweats. EYES: Denies visual changes, redness, or discharge. ENT: Denies rhinorrhea, congestion, sore throat, or otalgia. CARDIOVASCULAR: Denies chest pain, palpitations, or edema. RESPIRATORY: Denies cough or dyspnea. GASTROINTESTINAL: Denies abdominal pain, nausea, vomiting, or diarrhea. GENITOURINARY: Denies dysuria or hematuria. SKIN: Reports poison alcides rash and itching to bilateral arms and legs, abdomen, low back. MUSCULOSKELETAL: Denies back pain, joint pain, or myalgia. NEUROLOGIC: Denies headache, numbness, or weakness. PSYCHIATRIC: Denies anxiety or depression. All other systems reviewed are negative, except as documented in HPI. [facility] Past Medical History Medical History Anxiety Chronic knee pain Surgical History Surgical History History of arthroscopy of left knee X3 History of tonsillectomy Family History Family History Father Accidental in work place Social History Social History (Updated 02/18/22 @ 19:05 by Gaby Swartz PA-C) Social History: Surrogate decision-maker: Jocelyn Saleh, significant other. CODE STATUS: Full code Smoking packs per day: 2 Smoking cigarettes per day: 40.0 Years smoked: 30 Smoking pack-years: 60.00 Smoking status: Current every day smoker Alcohol intake: never Substance use: former Additional living arrangements comments: The patient lives with his family in [place]. 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 Spiritual care concerns: No Comments At time of signature, agree with nursing past medical, surgical, social and family history. There is no relevant family history pertinent to the presenting complaint. Exam Narrative: GENERAL: This is a well-nourished, well-developed patient, in no apparent distress. HEAD: normocephalic, atraumatic. EYES: PERRL. Sclera clear/white. Vision is grossly intact. EARS: External ears normal NOSE: External nose normal NECK: Neck supple, non-tender without lymphadenopathy, masses or thyromegaly. CARDIOVASCULAR: Regular rate and rhythm without murmurs, gallops, or rubs. RESPIRATORY: Clear to auscultation. Breath sounds equal bilaterally. No wheezes, rales, or rhonchi. SKIN: warm, Dry, intact with no suspicious lesions, good texture and turgor. Erythematous rash to left arm, right side low back, abdomen. Some linear vesicles noted. NEURO: awake, alert, and oriented to person, place and time. There were no obvious focal neurologic abnormalities. EXTREMITIES: No joint tenderness, effusion, or edema noted. Course Course Level of Care: Express Care Visit Vital Signs Vital signs: Vital Signs Temperature 37.1 C 05/23/22 18:28 Pulse Rate 80 05/23/22 18:28 Respiratory
== END 2022-05-23 19:00 | disposition home or self-care (01) ==
PROVIDERS: Emergency Provider Nurse Practitioner Family
DX: L25.5 Unspecified contact dermatitis due to plants, except food (principal); F17.210 Nicotine dependence, cigarettes, uncomplicated
CPT/HCPCS: 99213; G0463

== ENCOUNTER 2024-11-15 19:11 | Emergency (ER) | payer MEDICAID, SELFPAY ==
--- NOTE | ~2024-11-15 | CT_ITS ---
EXAMINATION: CT hip RT wo con DATE: 11/15/2024 22:51 INDICATION: Right hip pain. TECHNIQUE: Computed tomography (CT) of the right hip was performed without intravenous contrast. Auto mated exposure control and iterative reconstruction technique were employed. The dose-length product was 1016.73 mGy-cm. COMPARISON: Right hip radiographs 11/15/2024 FINDINGS: Alignment is normal. No fracture. There is severe lumbar spondylosis. There is mild right h ip osteoarthritis. IMPRESSION: 1. Mild right hip osteoarthritis. Reviewed, dictated and finalized at location A. FACTURING ASSISTANT
--- NOTE | ~2024-11-15 | XR_ITS ---
EXAMINATION: XR hip RT min 2V DATE: 11/15/2024 20:52 INDICATION: Right hip pain. TECHNIQUE: 2 views of right hip were obtained. COMPARISON: None. FINDINGS: Alignment is normal. No fracture. Right hip joint space is normal. IMPRESSION: 1. Normal right hip. Reviewed, dictated and finalized at location A. TING SUPERVISOR IMPRESSION: 1. Normal right hip.
[2024-11-15 19:14] VITALS: BP 145/89; PULSE 95; RESP 17; TEMP 36.7; O2SAT 98
[2024-11-15] MEDS: MORPHINE SULFATE INJ (*CRX) 10 MG/ML AMP 4 MG IM (22:52)
[2024-11-15] MEDS: KETOROLAC 30 MG/ML VIAL (*BKC) IM (22:53)
--- NOTE | 2024-11-15 23:24 | ED_ITS ---
HPI - General Adult General Chief complaint: Extremity Problem,Nontraumatic Stated complaint: right hip pain Time Seen by Provider: 11/15/24 22:21 History of Present Illness HPI narrative: patient 49-year-old gentleman who presents emergency department with chief complaint of right hip pain. Patient reports that he was working underneath a vehicle stood up and had a pop in his right hip the patient states that he has pain with ambulation patient reports he has history of arthritis Related Data Home Medications ?Medication ?Instructions ?Recorded ?Confirmed ?Last Taken ?Type albuterol sulfate 90 mcg/actuation 90 mcg inhalation DIRECTED PRN 07/10/21 05/23/22 Unknown History aerosol inhaler Shortness Of Breath Or Wheezing diclofenac sodium 75 mg 75 mg PO BID 07/10/21 05/23/22 Unknown History tablet,delayed release tramadol 50 mg tablet 50 mg PO Q4H PRN Pain 05/23/22 05/23/22 Unknown History Allergies Allergy/AdvReac Type Severity Reaction Status Date / Time No Known Allergies Allergy Verified 11/15/24 19:18 Review of Systems Review of Systems: A 10 system review of systems was completed on the patient and is negative except for what is stated in the HPI. Nursing and ancillary documentation was reviewed. PMFSH Past Medical History Medical History Anxiety Chronic knee pain Surgical History Surgical History History of tonsillectomy History of arthroscopy of left knee X3 Family History Family History Father Accidental in work place Social History Social History Social History: Surrogate decision-maker: Jocelyn Saleh, significant other. CODE STATUS: Full code Smoking packs per day: 2 Smoking cigarettes per day: 40.0 Years smoked: 30 Smoking pack-years: 60.00 Smoking status: Current every day smoker Alcohol intake: never Substance use: former Additional living arrangements comments: The patient lives with his family in [place]. 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 Spiritual care concerns: No Exam Narrative: GENERAL: Well-appearing, well-nourished, and in no acute distress. HEAD: Normocephalic, atraumatic. EYES: PERRLA and EOMI. ENT: Nares clear, no rhinorrhea or epistaxis. Mucous membranes moist. NECK: Supple. CHEST: Clear to auscultation. No respiratory distress. HEART: Regular rate and rhythm. No murmur heard. Normal peripheral pulses. ABDOMEN: Soft, nontender, nondistended, normal active bowel sounds. EXTREMITIES: Normal range of motion tenderness to palpation in the right hip. No edema. SKIN: Warm, dry, no rash. NEURO: No focal deficits. Alert and oriented x3. PSYCH: Normal mood and affect. Course Vital Signs Vital signs: Vital Signs Temperature 36.7 C 11/15/24 19:14 Pulse Rate 95 11/15/24 19:14 Respiratory Rate 17 11/15/24 19:14 Blood Pressure 145/89 H 11/15/24 19:14 Pulse Oximetry 98 11/15/24 19:14 Oxygen Delivery Room Air 11/15/24 19:14 Temperature 36.7 C 11/15/24 19:14 Pulse Rate 95 11/15/24 19:14 Respiratory Rate 17 11/15/24 19:14 Blood Pressure 145/89 H 11/15/24 19:14 Pulse Oximetry 98 11/15/24 19:14 Oxygen Delivery Room Air 11/15/24 19:14 Medical Decision Making MDM Narrative Medical decision making narrative: differential diagnosis includes fracture, contusion, arthritis plain film x-rays of the right hip showed no acute findings. CT scan of the right hip showed no evidence of occult fracture there was evidence of arthritis. Vital Signs Vital Signs: Vital Signs Temperature 36.7 C 11/15/24 19:14 Pulse Rate 95 11/15/24 19:14 Respiratory Rate 17 11/15/24 19:14 Blood Pressure 145/89 H 11/15/24 19:14 Pulse Oximetry 98 11/15/24 19:14 Oxygen Delivery Room Air 11/15/24 19:14 Temperature 36.7 C 11/15/24 19:14 Pulse Rate 95 11/15/24 19:14 Respiratory Rate 17 11/15/24 19:14 Blood Pressure 145/89 H 11/15/24 19:14 Pulse Oximetry 98 11/15/24 19:14 Oxygen Delivery Room Air 11/15/24 19:14 Discharge Plan Discharge Clinical Impression: Arthralgia of hip, right Patient Disposition: Home, Self-Care Condition: Stable Instructions: Antibiotic Form, Hip Pain (ED) Patient Language: Montenegrin Prescriptions: New cyclobenzaprine 10 mg tablet 10 mg PO TID PRN (Reason: muscle spasm) Qty: 21 0RF diclofenac potassium 50 mg tablet 50 mg PO TID PRN (Reason: pain) Qty: 30 0RF prednisone 20 mg tablet 40 mg PO DAILY 5 Days Qty: 10 0RF hydrocodone-acetaminophen 5-325 mg tablet 1 tablet PO Q6H PRN (Reason: pain) 2 Days Qty: 8 0RF No Action diclofenac sodium 75 mg tablet,delayed release (DR/EC) 75 mg PO BID albuterol sulfate 90 mcg/actuation HFA aerosol inhaler 90 mcg INHALATION DIRECTED PRN (Reason: Shortness Of Breath Or Wheezing) tramadol 50 mg Tablet 50 mg PO Q4H PRN (Reason: Pain) triamcinolone acetonide 0.1 % cream 1 applic topical BID Qty: 30 0RF hydroxyzine HCl 10 mg tablet 10 mg PO Q6-8H PRN (Reason: itching) Qty: 30 0RF prednisone 20 mg tablet See Rx Instructions .ROUTE .COMPLEX Qty: 12 0RF Rx Instructions: Take 3 tablets daily for 1 day then 2 tablets daily for 3 days then 1 tablet daily for 3 days. Follow-up/Referrals: Hugh Montiel MD [Physician] - UNKNOWN,DOCTOR [Primary Care Provider] - Time of Disposition: 23:29
== END 2024-11-15 23:39 | disposition home or self-care (01) ==
PROVIDERS: Emergency Provider Emergency Medicine
DX: M25.551 Pain in right hip (principal); F17.210 Nicotine dependence, cigarettes, uncomplicated; M16.11 Unilateral primary osteoarthritis, right hip
CPT/HCPCS: 73502; 73700; 96372; 96374; 96375; 99284; J1885; J2270

== ENCOUNTER 2024-12-10 13:04 | Emergency (ER) | payer MEDICAID, SELFPAY ==
--- NOTE | ~2024-12-10 | XR_ITS ---
HISTORY: fall on ice. Tender olecranon. Hx tricep tear COMPARISON: None TECHNIQUE: 3 views of the right elbow. FINDINGS: Diffuse bony demineralization. Extensive degenerative disease, with multiple osteophytes surrounding the joint space. No elevation of the anterior or posterior fat pads are identified to suggest a supracondylar fracture . Cortical discontinuity of the proximal radius on lateral 90 degree view within adjacent extraosseou s focus for which an avulsion fracture of the proximal radius cannot be excluded. IMPRESSION: Severe degenerative disease with possible evulsion fracture of the proximal radius, for which clinical correlation is needed. Reviewed, dictated and finalized at location A. TICS LIFEGUARD
--- NOTE | ~2024-12-10 | XR_ITS ---
EXAMINATION: XR shoulder RT min 2V DATE: 12/10/2024 13:42 INDICATION: Right shoulder pain. Fall. TECHNIQUE: 4 views of right shoulder were obtained. COMPARISON: None. FINDINGS: Alignment is normal. No fracture. There is mild osteoarthritis of glenohumeral joint and ac romioclavicular joint. IMPRESSION: 1. Mild polyarticular osteoarthritis. Reviewed, dictated and finalized at location A. IUM CANCELLATION CLERK
[2024-12-10 13:12] VITALS: BP 158/110; PULSE 87; RESP 16; TEMP 37.1; O2SAT 99
--- NOTE | 2024-12-10 13:29 | ED_ITS ---
HPI - Extremity Injury (Upper) General Chief Complaint: Extremity Injury, Upper Stated Complaint: Fall Injury/Shoulders/Right Elbow/Back Time Seen by Provider: 12/10/24 13:19 Source: patient and RN notes reviewed Mode of arrival: ambulatory Limitations: no limitations History of Present Illness HPI narrative: Patient presents today complaining of right shoulder and elbow pain after falling on ice from his truck approximately 6 hours prior to arrival. Denies head injury or loss of consciousness. Denies numbness or tingling in the arm or hand. Currently rates his pain 5/10 and has taken Tylenol and ibuprofen today without relief. Patient states he has history of rotator cuff tear on the right which he let heal on its own. Also has an active right tricep tear which he is waiting to be seen for. Related Data Home Medications ?Medication ?Instructions ?Recorded ?Confirmed ?Last Taken ?Type albuterol sulfate 90 mcg/actuation 90 mcg inhalation DIRECTED PRN 07/10/21 05/23/22 Unknown History aerosol inhaler Shortness Of Breath Or Wheezing Allergies Allergy/AdvReac Type Severity Reaction Status Date / Time No Known Allergies Allergy Verified 12/10/24 13:20 Review of Systems Review of Systems: CONSTITUTIONAL: Denies body aches, fever, chills, or sweats. EYES: Denies visual changes, redness, or discharge. ENT: Denies rhinorrhea, congestion, sore throat, or otalgia. CARDIOVASCULAR: Denies chest pain, palpitations, or edema. RESPIRATORY: Denies cough or dyspnea. GASTROINTESTINAL: Denies abdominal pain, nausea, vomiting, or diarrhea. GENITOURINARY: Denies dysuria or hematuria. SKIN: Denies rash, itching, or wounds. MUSCULOSKELETAL: Denies back pain, or myalgia.+ right shoulder and elbow pain NEUROLOGIC: Denies headache, numbness, tingling, or weakness. PSYCH: Denies depression or anxiety. [facility] Past Medical History Medical History Anxiety Chronic knee pain Surgical History Surgical History History of tonsillectomy History of arthroscopy of left knee X3 Family History Family History Father Accidental in work place Social History Social History Social History: Surrogate decision-maker: Jocelyn Saleh, significant other. CODE STATUS: Full code Smoking packs per day: 2 Smoking cigarettes per day: 40.0 Years smoked: 30 Smoking pack-years: 60.00 Smoking status: Current every day smoker Alcohol intake: never Substance use: former Additional living arrangements comments: The patient lives with his family in [place]. 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 Spiritual care concerns: No Comments At time of signature, I have reviewed and agree with nursing past medical, surgical, social and family history unless otherwise noted. Please see nursing chart for further information. There is no relevant family history pertinent to the presenting complaint Exam Narrative: GENERAL: Well-appearing, well-nourished, and in no acute distress. HEAD: Normocephalic, atraumatic. EYES: EOMI. No redness or drainage. Conjunctivae normal. ENT: Mucous membranes pink and moist. NECK: Normal AROM. CHEST: No respiratory distress. EXTREMITIES: Right elbow: Tenderness to the olecranon process. Patient has some swelling to the inner elbow that he states his only slightly worse than baseline. Reports that he is unable to fully extend his elbow, but this is baseline for him. Distal sensation intact. Capillary refill normal. Radial pulse normal. Right shoulder: Mild tenderness anteriorly. No edema or deformity noted. Decreased range of motion due to pain. SKIN: Warm, dry, no rash. Capillary refill normal. Normal skin turgor. NEURO: No focal deficits. Alert and oriented x3. Gait steady. PSYCH: Normal affect. No signs of depression or anxiety. Course Course Level of Care: Express Care Visit Vital Signs Vital signs: Vital Signs Temperature 98.8 F 12/10/24 13:12 Pulse Rate 87 12/10/24 13:12 Respiratory Rate 16 12/10/24 13:12 Blood Pressure 158/110 H 12/10/24 13:12 Pulse Oximetry 99 12/10/24 13:12 Oxygen Delivery Room Air 12/10/24 13:12 Temperature 98.8 F 12/10/24 13:12 Pulse Rate 87 12/10/24 13:12 Respiratory Rate 16 12/10/24 13:12 Blood Pressure 142/102 H 12/10/24 13:31 Pulse Oximetry 99 12/10/24 13:12 Oxygen Delivery Room Air 12/10/24 13:12 Reviewed MDM - Extremity Injury (Upper) MDM Narrative Medical decision making narrative: Elbow x-ray shows degenerative disease with possible avulsion fracture at the radial head. Patient does not seem tender in this area. Shoulder x-ray shows polyarticular osteoarthritis. Patient states he has a sling at home. Advised to use it for couple of days to help with immobilization. He is trying to set up an appointment before Orthopedics for other issues that he has and will set up an appointment for follow-up for these current issues if symptoms persist. Prescriptions for Flexeril and short course of Tramadol will be sent to pharmacy. Patient has been advised to not take any additional Tylenol or ibuprofen for the next 24 hours. Anticipatory guidance given. Differential Diagnosis Differential diagnosis: Likely dislocation of shoulder, fracture of humerus and other (Elbow fracture, contusion, muscle strain) Imaging Data Radiologist's impression: ITS Impressions Elbow X-Ray 12/10/24 13:43 IMPRESSION: Severe degenerative disease with possible evulsion fracture of the proximal radius, for which clinical correlation is needed. Shoulder X-Ray 12/10/24 13:55 IMPRESSION: 1. Mild polyarticular osteoarthritis. Critical Care Time Critical Care Time Critical Care Time: No Discharge Plan Discharge Clinical Impression: Fall due to ice or snow, Injury of elbow, right, Injury of right shoulder, Upper back strain Patient Disposition: Home, Self-Care Condition: Stable Instructions: Thoracic Back Strain (ED) Additional Instructions: Your x-ray is negative for fracture. Use your home sling for immobilization if needed. Take the Flexeril and tramadol as prescribed. Do not drive within 8 hours of taking either as it can make you drowsy. Apply ice to help with inflammation. Follow-up with your PCP next week if symptoms are not improving. Patient Language: Kinyarwanda Prescriptions: New cyclobenzaprine 10 mg tablet 10 mg PO TID PRN (Reason: muscle spasm) Qty: 20 0RF tramadol 50 mg tablet 50 mg PO Q6H PRN (Reason: pain) Qty: 8 0RF No Action albuterol sulfate 90 mcg/actuation HFA aerosol inhaler 90 mcg INHALATION DIRECTED PRN (Reason: Shortness Of Breath Or Wheezing) triamcinolone acetonide 0.1 % cream 1 applic topical BID Qty: 30 0RF hydroxyzine HCl 10 mg tablet 10 mg PO Q6-8H PRN (Reason: itching) Qty: 30 0RF Follow-up/Referrals: PHYSICIAN,MEDICAL ASSISTANT SECRETARY [Primary Care Provider] - Time of Disposition: 14:14
[2024-12-10 13:31] VITALS: BP 142/102
== END 2024-12-10 14:20 | disposition home or self-care (01) ==
PROVIDERS: Emergency Provider Nurse Practitioner
DX: S29.012A Strain of muscle and tendon of back wall of thorax, initial encounter (principal); S49.91XA Unspecified injury of right shoulder and upper arm, initial encounter; S59.901A Unspecified injury of right elbow, initial encounter; F17.210 Nicotine dependence, cigarettes, uncomplicated; W00.9XXA Unspecified fall due to ice and snow, initial encounter
CPT/HCPCS: 73030; 73080; 99214; G0463

== ENCOUNTER 2025-05-05 15:12 | Emergency (ER) | payer OTHER, SELFPAY ==
--- NOTE | ~2025-05-05 | XR_ITS ---
XR finger 5th RT min 2V Ordering provider: Luan Granger APRN History: . laceration near DIP, injury today . Comparison: None. FINDINGS: BONES: No acute fracture or dislocation. Old healed fracture in the fifth metacarpal bone is noted. JOINT SPACES: Osteoarthritic changes of the proximal and distal interphalangeal joints. SOFT TISSUES: Possible soft tissue swelling over proximal interphalangeal joint. IMPRESSION: No acute osseous abnormality. Reviewed, dictated and finalized at location A.
[2025-05-05 15:23] VITALS: BP 129/81; PULSE 70; RESP 16; TEMP 36.7; O2SAT 98
[2025-05-05] MEDS: TETANUS,DIPHTHERIA,AC PERTUSSIS ADULT (0.5 ML) BOOSTRIX IM (15:31)
--- NOTE | 2025-05-05 15:31 | ED.WOUNDLAC ---
HPI - Wound/Laceration General Chief Complaint: Wound/Laceration Stated Complaint: Right Little Finger Injury Time Seen by Provider: 05/05/25 15:20 Source: patient and RN notes reviewed Mode of arrival: ambulatory Limitations: no limitations History of Present Illness HPI narrative: 49-year-old male presents Express Care complaining of right pinky injury. Patient injury occurred approximately 1 hour ago. Patient was at work and holding a piece of metal that was sharp in acting and lacerated the palmar surface of his right pinky finger. Patient denies any other injury. Patient states he is able move his right pinky through normal range of motion without issue. Patient denies any numbness or tingling. Patient's tetanus not up-to-date. Patient denies any significant past medical problems. Related Data Home Medications ?Medication ?Instructions ?Recorded ?Confirmed ?Last Taken ?Type albuterol sulfate 90 mcg/actuation 90 mcg inhalation DIRECTED PRN 07/10/21 05/23/22 Unknown History aerosol inhaler Shortness Of Breath Or Wheezing celecoxib 200 mg capsule mg 05/05/25 Unknown History Allergies Allergy/AdvReac Type Severity Reaction Status Date / Time No Known Allergies Allergy Verified 05/05/25 15:42 Review of Systems Review of Systems: CONSTITUTIONAL: Denies fever, chills, or sweats. EYES: Denies visual changes, redness, or discharge. ENT: Denies rhinorrhea, congestion, sore throat, or otalgia. CARDIOVASCULAR: Denies chest pain, palpitations, or edema. RESPIRATORY: Denies cough or dyspnea. GASTROINTESTINAL: Denies abdominal pain, nausea, vomiting, or diarrhea. GENITOURINARY: Denies dysuria or hematuria. SKIN: Denies rash or itching. Positive for laceration. MUSCULOSKELETAL: Denies back pain, joint pain, or myalgia. NEUROLOGIC: Denies headache, numbness, or weakness. PSYCHIATRIC: Denies anxiety or depression. All other systems reviewed are negative, except as documented in HPI. [facility] Past Medical History Medical History Anxiety Chronic knee pain Surgical History Surgical History History of tonsillectomy History of arthroscopy of left knee X3 Family History Family History Father Accidental in work place Social History Social History Social History: Surrogate decision-maker: Jocelyn Saleh, significant other. CODE STATUS: Full code Smoking packs per day: 2 Smoking cigarettes per day: 40.0 Years smoked: 30 Smoking pack-years: 60.00 Smoking status: Current every day smoker Alcohol intake: never Substance use: former Additional living arrangements comments: The patient lives with his family in [place]. 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 Spiritual care concerns: No Comments At the time of my signature, I reviewed and agree with the nursing past medical, surgical, social, and family history. There is no relevant family history pertinent to the patient complaint. Exam Narrative: GENERAL: This is a well-nourished, well-developed adult, in no apparent distress. They are non ill-appearing, nontoxic appearing. HEAD: normocephalic, atraumatic. EYES: Sclera clear/white. Conjunctiva normal. Vision is grossly intact. Extraocular movements intact EARS: External ears normal, Hearing grossly intact. NOSE: External nose normal THROAT: Mucous membranes moist NECK: Neck supple CARDIOVASCULAR: Regular rate and rhythm RESPIRATORY: Respiratory rate normal, respiratory effort nonlabored, no respiratory distress SKIN: warm, Dry, intact with no suspicious lesions or rash, good texture and turgor. NEURO: awake, alert, and oriented to person, place and time. There were no obvious focal neurologic abnormalities. EXTREMITIES: Right pinky: Horizontal linear laceration to the palmar surface of the right pinky proximal to the DIP. Patient is able to flex and extend his right pinky against resistance at the PIP, PIP, MCP. Patient is able to make a fist, okay sign, thumb sign thumbs-up sign. Normal sensation. No obvious deformity of the right pinky. No swelling, redness, or bruising. Range of motion of right pink. No Bony tenderness. Neurovascular status intact distal injury. Radial pulse 2 +and palpable. Capillary refill less than 2 seconds. Course Course Emergency Course: Portions of this record may have been created with voice recognition software Level of Care: Express Care Visit Vital Signs Vital signs: Vital Signs Temperature 98.0 F 05/05/25 15:23 Pulse Rate 70 06/05/25 15:23 Respiratory Rate 16 05/05/25 15:23 Blood Pressure 129/81 05/05/25 15:23 Pulse Oximetry 98 05/05/25 15:23 Oxygen Delivery Room Air 05/05/25 15:23 Temperature 98.0 F 05/05/25 15:23 Pulse Rate 70 05/05/25 15:23 Respiratory Rate 16 05/05/25 15:23 Blood Pressure 129/81 05/05/25 15:23 Pulse Oximetry 98 05/05/25 15:23 Oxygen Delivery Room Air 05/05/25 15:23 Reviewed Procedures Laceration Laceration 1: Date: 05/05/25 Time: 16:10 Site: hand (Right pinky) Side (If applicable): right Size (cm): 1.5 Description: linear Depth: simple, single layer Local Anesthetic: lidocaine 1% (Digital block of right pinky and local infiltration) Amount of anesthesia used (mL): 5 Pre-repair: wound explored and irrigated extensively ====== Skin Level ====== Skin layer closed with: nylon Size (cm): 5-0 Number of sutures: 4 Technique: simple, interrupted ====== Subcutaneous Layer ====== ====== Muscle Layer ====== ====== Tendon Layer ====== Dressing: Not adherent dressing, Coban, metal finger splint MDM - Wound/Laceration MDM Narrative Medical decision making narrative: X-ray of right pinky showed no evidence of fracture, foreign bodies, or any acute findings.. Successful laceration repair with 4 sutures. Wound extensively irrigated today. Patient does have a history of MRSA will prophylactically cover with Bactrim. Patient's tetanus is updated today. Discussed physical exam findings. Advised supportive measures and signs/symptoms to go to the ER. Pt is appropriate for outpt treatment and f/u. Differential Diagnosis Differential diagnosis: Likely laceration, abrasion, avulsion of skin and other (Finger fracture) Imaging Data Radiologist's impression: ITS Impressions Finger X-Ray 05/05/25 15:47 IMPRESSION: No acute osseous abnormality. Critical Care Time Critical Care Time Critical Care Time: No Discharge Plan Discharge Clinical Impression: Laceration of right little finger Qualifiers: Encounter type: initial encounter Damage to nail status: without damage Foreign body presence: without foreign body Qualified Code(s): S61.216A - Laceration without foreign body of right little finger without damage to nail, initial encounter Patient Disposition: Home Condition: Stable Instructions: Antibiotic Form, Finger Laceration (ED) Additional Instructions: Your x-ray of your right pinky is negative for any acute findings or fractures. Your sutures need to be removed in 10-14 days. ?Wear the dressing that has been applied for the first 24 hours to allow a scab to start forming. ?After this, you may remove and wash as normal with soap and water. ?Do NOT wash with peroxide or alcohol. ?Do NOT apply antibiotic ointment. Do not scrub or soak the wound. Take the Bactrim as directed to prevent infection. Your tetanus was updated today. Avoid dirty water such as a pools, lakes, tub soaks, issa, creeks, hot tubs, until the wound has completely healed. ?Take tylenol or ibuprofen as needed for pain. For the middle finger splint the keep your finger straight and pulling on the sutures. ?Follow up with your PCP in 3-5 days. Go to the ER with any signs of infection such as increased redness, swelling, drainage, pain, fevers, or any other concerns. Please follow-up with a hand specialist if you develop any problems with your right pinky. Patient Language: Arabic Prescriptions: New sulfamethoxazole-trimethoprim [Bactrim DS] 800-160 mg tablet 1 tablet PO Q12H 7 Days Qty: 14 0RF No Action tramadol 50 mg tablet 50 mg PO Q6H PRN (Reason: pain) Qty: 8 0RF celecoxib 200 mg capsule albuterol sulfate 90 mcg/actuation HFA aerosol inhaler 90 mcg INHALATION DIRECTED PRN (Reason: Shortness Of Breath Or Wheezing) Follow-up/Referrals: Hermes Montes MD [Physician] - UNKNOWN,DOCTOR [Primary Care Provider] - Stand Alone Forms: Work/School Release IP Time of Disposition: 16:24
[2025-05-05] MEDS: LIDOCAINE 1% LOCAL INJ 2 ML AMPUL 4 ML INFILTRATE (15:40)
--- OUTSIDE RECORDS SUMMARY | 2025-05-05 15:43 | XMS_ITS | Encounter Summary ---
Author Organization [facility] Address [address] [place] [address] Phone Care Team Providers Care Boat Dock Operator Name Role Phone Donaldo Gamboa MD Primary Care Provider [phone] Provider, None Primary Care Provider Unavailabl e Reason for Visit * Reason Comments Medication Refill Encounter Details Date Type Department Care Team (Late st Contact Info) Description 04/30/2023 Refill [facility] - Family Medicine - [place] [address] [place] [address] Edward Yepez APRN, CERTIFIED ORTHOTIST [address] [address] Medication Refill Social History Tobacco Use Types Packs/Day Years Used Date Smoking Tobacco: Heavy Smoker Cigarettes Smokeless Tobacco: Never Alcohol Use Standard Drinks/Week Comments Yes 0 (1 standard drink = 0.6 oz pur e alcohol) Socially PHQ-2 Answer Date Recorded Total Score - Questions 1-9 0 10/31 Sexually Active Control Partners Comments Not Currently Sex and Gender Information Value Date Recorded Sex Assigned at Not on file Legal Sex Male 11:24 PM CDT Gender Identity Not on file Sexual Orientation Not on file documented as of this encounter Miscellaneous Notes * Telephone Encounter - Uzma Deluca RN - 05/01/2023 8:51 AM CDT PRN medication requires review from provider Per nursing clinical judgement, provider to review and approve the medication(s) order(s) if appropriate. Requested Prescriptions Pending Prescriptions Disp Refills albuterol 108 (90 Base) MCG/ACT Aerosol Solution [Pharmacy Med Name: ALBUTEROL HFA INH(200 PUFFS) 18GM] 18 g 5 Sig: INHALE 2 PUFFS BY MOUTH EVERY 4 HOURS NEEDED FOR WHEEZING OR COUGH Short Acting Inhaled Beta-Agonists Protocol Passed - 04/30/2023 11:42 AM Passed - Visit with relevant provider in past 12 months or upcoming 90 days Recent Visits Date Type Provider Dept 11/05/22 Office Visit Edward Yepez APRN, [facility] 10/16/22 Office Visit Donaldo Gamboa MD [facility] 07/03/22 Office Visit Edward Yepez APRN, [facility] Showing recent visits within past 365 days and meeting all other requirements Future Appointments No visits were found meeting these conditions. 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
--- OUTSIDE RECORDS SUMMARY | 2025-05-05 15:43 | XMS_ITS | Encounter Summary ---
Author Organization [facility] Address [address] [facility] [place] [address] Phone Care Team Providers Care Electrogalvanizing Machine Operator Name Role Phone Donaldo Gamboa MD Primary Care Provider [phone] Provider, None Primary Care Provider Unavailabl e Reason for Visit * Reason Comments Medication Refill Encounter Details Date Type Department Care Team (Late st Contact Info) Description 07/01/2022 Refill [facility] - Family Medicine [facility] [address] [place] [address] Donaldo Gamboa MD [address] [address] Medication Refill Social History Tobacco Use Types Packs/Day Years Used Date Smoking Tobacco: Heavy Smoker Cigarettes Smokeless Tobacco: Never Alcohol Use Standard Drinks/Week Comments Yes 0 (1 standard drink = 0.6 oz pur e alcohol) Socially PHQ-2 Answer Date Recorded Total Score - Questions 1-9 0 10/31 Sex and Gender Information Value Date Recorded Sex Assigned at Not on file Legal Sex Male 11:24 PM CDT Gender Identity Not on file Sexual Orientation Not on file COVID-19 Exposure Response Date Recorded In the last 10 days, have yo u been in contact with someone who was confirmed or suspected to have Coronavirus/COVID-19? 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
--- OUTSIDE RECORDS SUMMARY | 2025-05-05 15:43 | XMS_ITS | Referral Summary ---
Author Organization [facility] Medical Office Building B Address [address] [place] [address] Care Team Providers Care Furniture Rental Consultant Name Role Phone Adelina Nicole RN Dayami Guardado NP Primary Care Provider [phone] Encounters Date Type Department Care Team Description 05/04/2025 1:55 PM CDT - 05/04/2025 11:59 PM CDT Hospital Encounter [facility] 2 [facility], [address] [place] [address] Helga Keyes NP Localized osteoarthritis of knees, bilateral; Primary osteoarthritis involving multiple joints Discharge Disposition: Discharge to home or self care 04/07/2025 8:00 AM CDT Office Visit [facility] Primary Care at [address] [address] Dayami Olmstead NP BMI 39.0-39.9,adult (Primary Dx); Attention deficit hyperactivity disorder (ADHD), predominantly inattentive type; Vitamin D deficiency; Mild intermittent asthma without complication; Wellness examination; Prostate cancer screening; Thyroid disorder screening; Lipid screening; Screening for deficiency anemia; Localized osteoarthritis of knees, bilateral; Primary osteoarthritis involving multiple joints; Encounter for colorectal cancer screening using Cologuard test from Last 3 Months Allergies No known active allergies Medications traMADoL (ULTRAM) 50 mg tabletIndications: Localized osteoarthritis of knees, bilateral,Primary osteoarthritis involving multiple joints Take 1 tablet (50 mg total) by mouth every 8 (eight) hours as needed for pain 90 tablet 5 04/07/20 25 Active celecoxib (CeleBREX) 200 mg capsuleIndications :Osteoarthritis Take 1 capsule (200 mg total) by mouth 2 (two) times a day 60 capsule 3 04/07/20 25 Active diclofenac sodium (VOLTAREN) 1 % gelIndications:Ost eoarthritis Apply 4 g topically 4 (four) times a day 450 g 11 04/07/20 25 Active albuterol HFA (PROVENTIL HFA,VENTOLIN HFA,PROAIR HFA) 90 mcg/actuation inhalerIndications :Mild intermittent asthma without complication Inhale 2 puffs every 4 (four) hours as needed for wheezing 3 each 3 04/07/20 25 Active cyclobenzaprine ER (AMRIX) 15 mg 24 hr capsule take 1 capsule by oral route every day 0 0 03/21/20 17 025 Discontin ued(Patie nt Reported) diclofenac DR (VOLTAREN) 75 mg EC tablet take 1 tablet by oral route 2 times every day 0 0 03/21/20 17 025 Discontin ued(Patie nt Reported) HYDROcodone-acetam inophen (VICODIN) 5-300 mg per tablet take 1 tablet by oral route every 4 - 6 hours as needed for pain 0 0 03/21/20 17 025 Discontin ued(Patie nt Reported) albuterol HFA (PROVENTIL HFA,VENTOLIN HFA) 90 mcg/actuation inhaler Inhale. 025 Discontin ued(Patie nt Reported) cyclobenzaprine (FLEXERIL) 10 mg tablet 05/19/20 17 025 Discontin ued(Patie nt Reported) HYDROcodone-acetam inophen (LORCET PLUS) 10-325 mg per tabletIndications: Pain 05/20/20 17 025 Discontin ued(Patie nt Reported) LORazepam (ATIVAN) 1 mg tablet 04/16/20 17 025 Discontin ued(Patie nt Reported) diclofenac DR (VOLTAREN) 75 mg EC tablet Take 1 tablet (75 mg total) by mouth 025 Discontin ued(Patie nt Reported) cyclobenzaprine (FLEXERIL) 10 mg tablet 05/19/20 17 025 Discontin ued(Patie nt Reported) oxyCODONE-acetamin ophen (PERCOCET) 10-325 mg per tabletIndications: Arthritic Pain,Pain,bilat knees Take 1 tablet by mouth 4 (four) times a day as needed for pain. 120 tablet 06/04/20 18 025 Discontin ued(Patie nt Reported) oxyCODONE-acetamin ophen (PERCOCET) 10-325 mg per tabletIndications: Arthritic Pain,Pain,bilat knees Take 1 tablet by mouth 4 (four) times a day as needed for pain. 120 tablet 04/05/20 18 025 Discontin ued(Dupli ildefonso order) oxyCODONE-acetamin ophen (PERCOCET) 10-325 mg per tabletIndications: Arthritic Pain,Pain,bilat knees Take 1 tablet by mouth 4 (four) times a day as needed for pain. 120 tablet 05/05/20 18 025 Discontin ued(Patie nt Reported) Active Problems Problem Noted Date Diagnosed Date BMI 39.0-39.9,adult 04/07/2025 Assessment & Plan (04/07/2025 3:29 PM CDT): Discussed the patient's BMI. The BMI is above average. BMI management plan is completed. BMI Follow-up includes: nutrition counseling, exercise counseling and education provided. Encouraged regular physical activity--moderate activity for a total of 150 minutes per week over 3-5 days. Encouraged healthy diet with regular fresh fruits and vegetables limited in processed carbohydrates. Wellness examination 04/07/2025 Assessment & Plan (04/07/2025 3:29 PM CDT): Routine health maintenance objectives discussed and orders placed for any outstanding screening studies. Physical exam performed as above. Routine annual labs obtained and will be reviewed with patient when results available. Encouraged regular physical activity--moderate activity for a total of 150 minutes per week over 3-5 days. Encouraged healthy diet with regular fresh fruits and vegetables limited in processed carbohydrates. He is advised to complete lab work. Orders: CBC with auto differential; Future Comprehensive metabolic panel; Future Lipid panel; Future PSA screen; Future Localized osteoarthritis of knees, bilateral 07/2025 Assessment & Plan (04/07/2025 8:54 AM CDT): Orders: Ambulatory referral to Orthopedic Surgery; Future XR Knee Bilateral Ap Standing; Future XR Knee Bilateral 3 Views; Future Ambulatory referral to Pain Management; Future traMADoL (ULTRAM) 50 mg tablet; Take 1 tablet (50 mg total) by mouth every 8 (eight) hours as needed for pain celecoxib (CeleBREX) 200 mg capsule; Take 1 capsule (200 mg total) by mouth 2 (two) times a day diclofenac sodium (VOLTAREN) 1 % gel; Apply 4 g topically 4 (four) times a day Primary osteoarthritis involving multiple joints 04/07/2025 Assessment & Plan (04/07/2025 8:54 AM CDT): Orders: Ambulatory referral to Pain Management; Future traMADoL (ULTRAM) 50 mg tablet; Take 1 tablet (50 mg total) by mouth every 8 (eight) hours as needed for pain celecoxib (CeleBREX) 200 mg capsule; Take 1 capsule (200 mg total) by mouth 2 (two) times a day diclofenac sodium (VOLTAREN) 1 % gel; Apply 4 g topically 4 (four) times a day Attention deficit hyperactivity disorder (ADHD) 10/16/2022 Assessment & Plan (04/07/2025 3:29 PM CDT): Advised to schedule with psychiatry for management. Vitamin D deficiency 10/16/2022 Assessment & Plan (04/07/2025 3:29 PM CDT): Currently not supplementing. Historically low. Vitamin-D level pending. Orders: Vitamin D 25 hydroxy; Future Mild intermittent asthma without complication Assessment & Plan (04/07/2025 3:29 PM CDT): Asthma is mild intermittent Refills of inhalers sent to pharmacy. Discussed medication desired effects, potential side effects, and how to administer the medication. Encouraged nonpharmacological interventions such as avoiding allergens, having rescue inhaler(s) handy at all times. Discussed the importance of smoking cessation. Follow up in 6 months or sooner if needed. Patient verbalizes understanding regarding plan of care and all questions answered Orders: albuterol HFA (PROVENTIL HFA,VENTOLIN HFA,PROAIR HFA) 90 mcg/actuation inhaler; Inhale 2 puffs every 4 (four) hours as needed for wheezing Resolved Problems Problem Noted Date Diagnosed Date Resolved Date Primary osteoarthritis of left knee 06/16/2018 04/07/2025 Traumatic arthritis of right knee 06/16/2018 04/07/2025 Morbid obesity with BMI of 45.0-49.9, adult 05/23/2017 04/07/2025 Closed fracture of lateral p ortion of right tibial plateau with routine healing 05/22/201707/2025 Immunizations Immunization Administration Dates Next Due Influenza, Trivalent, IM (MDV) 08/25/2020 Tdap 07/12/2021 Social History Tobacco Use Types Packs/Day Years Used Date Smoking Tobacco: Every Day Cigarettes 1 33.4 Started: 1991 Passive Smoke Exposure: Current Smokeless Tobacco: Never Tobacco Cessation:Ready to Q uit: No; Counseling Given: Yes Alcohol Use Standard Drinks/Week Comments No 0 (1 standard drink = 0.6 oz pur e alcohol) AUDIT-C Answer Date Recorded Q1: How often do you have a drink containing alcohol? Never 04/07/2025 Q2: How many drinks containi ng alcohol do you have on a typical day when you are drinking? Patient does not drink Q3: How often do you have si x or more drinks on one occasion? Never 04/07/2025 PHQ-2 Answer Date Recorded PHQ-2 Total Score (If total score is 3 or more points, staff should administer the PHQ-9) 1 05/04/2025 PHQ-9 Answer Date Recorded PHQ-9 Total Score 6 05/04/2025 Sex and Gender Information Value Date Recorded Sex Assigned at Not on file Legal Sex Male 11:29 AM CDT Gender Identity Not on file Sexual Orientation Not on file Last Filed Vital Signs Vital Sign Reading Time Taken Comments Blood Pressure 138/100 05/04/2025 2:42 PM CDT Pulse 73 05/04/2025 2:42 PM CDT Temperature 36.8 C (98.3 F) 04/07/2025 7:56 AM CDT Respiratory Rate 16 05/04/2025 2:42 PM CDT Oxygen Saturation 99% 05/04/2025 2:42 PM CDT Inhaled Oxygen Concentration - - Weight 135.6 kg (299 lb) 04/07/2025 7:56 AM CDT Height 185.4 cm (6' 1) 04/07/2025 7:56 AM CDT Body Mass Index 39.45 04/07/2025 7:56 AM CDT Plan of Treatment Not on file Goals Goal Patient Goal Type Associated Problems Recent Progress Patient-Stated? Author [facility]-Pain Behavioral Health On track( 018 10:31 AM CDT) No Adelina Nicole, RN Note: Patient will describe how unrelieved pain will be managed. Insurance [facility] Care Teams Furniture Rental Consultant Relationship Specialty Start Date End Date Dayami Olmstead NP [address] [place] [address] PCP - General Internal Medicine 04/07/25 Adelina Nicole, RN Registered Nurse 01/07/18
--- OUTSIDE RECORDS SUMMARY | 2025-05-05 15:43 | XMS_ITS | Encounter Summary ---
Author Organization [facility] Address [address] [facility] [place] [address] Phone Care Team Providers Care Care Provider Name Role Phone Donaldo Gamboa MD Primary Care Provider [phone] Provider, None Primary Care Provider Unavailabl e Reason for Visit * Reason Comments Medication Refill Encounter Details Date Type Department Care Team (Late st Contact Info) Description 07/30/2023 Refill [facility] - Family Medicine [facility]3] [address] [place] [address] Donaldo Gamboa MD [address] [address] Medication Refill Social History Tobacco Use Types [...] encounter Miscellaneous Notes * Telephone Encounter - Emilee Llamas RN - 07/31/2023 4:18 PM CDT Medication failed the protocol, provider to review and approve the medication order if appropriate. Requested Prescriptions Pending Prescriptions Disp Refills diclofenac (VOLTAREN) 75 MG Tablet Delayed Response [Pharmacy Med Name: DICLOFENAC SODIUM 75MG DR TABLETS] 60 Tablet 0 Sig: TAKE 1 TABLET BY MOUTH TWICE DAILY NSAIDs Protocol Failed - 07/30/2023 11:04 AM Failed - Normal serum creatinine in past 12 months No results found for: CREATININE Failed - No matching NSAID med order in past 45 days Matching medication order placed on 06/30/2023 1:49 PM Order [id number]: diclofenac (VOLTAREN) 75 MG Tablet Delayed Response (For orders placed between 06/16/2023 4:18 PM and 07/31/2023 4:18 PM) Failed - AST less than 55 or ALT less than 90 in past 12 months No results found for: SGOTAST No results found for: SGPTALT Failed - HGB greater than 10 or HCT greater than 30 in past 12 months HEMOGLOBIN (HGB) Date Value Ref Range Status 05/03/2017 14.6 13.0 - 16.5 g/dL Final HEMATOCRIT (HCT) Date Value Ref Range Status 05/03/2017 41.7 38.0 - 50.0 % Final Passed - Visit with relevant provider in past 12 months or upcoming 90 days Recent Visits Date Type Provider Dept 11/05/22 Office Visit Edward Yepez APRN, [facility] 10/16/22 Office Visit Donaldo Gamboa MD [facility] Showing recent visits within past 365 days and meeting all other requirements Future Appointments No visits were found meeting these conditions. 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
--- OUTSIDE RECORDS SUMMARY | 2025-05-05 15:43 | XMS_ITS | Encounter Summary ---
Author Organization [facility] Healthcare Address [address] [place] [address] Care Team Providers Care Clinical Implementation Specialist Name Role Phone Adelina Nicole RN Unavailable Unavailjanene e Dayami Olmstead NP Primary Care Provider [phone] Reason for Referral * Consultation (Routine) - Authorized Specialty Diagnoses / Procedures Referred By Gaby guerrier Referred To Contact Pain Management Diagnoses Localized osteoarthritis of knees, bilateral Primary osteoarthritis involving multiple joints Dayami Olmstead NP [address] [place] [address] Phone: tel: fax: Teofilo Porter MD [address] [place] [address] Phone: tel: fax: Referral ID Status Reason Start Date Expiration Date Visits Requested Visits Authorized [id number] Authorized Specialty Services Required 04/11/2025 10/12/2025 12 12 Question Answer Please select the performing region: External Order [171] # of visits: 1 Comments Patient has peter Reason for Visit * Reason Comments Initial Consult Back Pain Knee Pain BILATERAL Hip Pain Elbow Pain Shoulder Pain * Consultation (Routine) - Authorized Specialty Diagnoses / Procedures Referred By Gaby guerrier Referred To Contact Pain Management Diagnoses Localized osteoarthritis of knees, bilateral Primary osteoarthritis involving multiple joints Dayami Olmstead NP [address] [place] [address] Phone: tel: fax: Teofilo Porter MD [address] [place] [address] Phone: tel: fax: Referral ID Status Reason Start Date Expiration Date Visits Requested Visits Authorized [id number] Authorized Specialty Services Required 04/11/2025 10/12/2025 12 12 Encounter Details Date Type Department Care Team (Latest Contact Info) Description 05/04/2025 1:55 PM CDT - 05/04/2025 11:59 PM CDT Hospital Encounter [facility] 2 [facility] [address] [place] [address] Helga Keyes, [facility] [address] [place] [address] Localized osteoarthritis of knees, bilateral; Primary osteoarthritis involving multiple joints Discharge Disposition: Discharge to home or self care Social History Tobacco Use Types Packs/Day Years [...] on file documented as of this encounter Last Filed Vital Signs Vital Sign Reading Time Taken Comments Blood Pressure 138/100 05/04/2025 2:42 PM CDT Pulse 73 05/04/2025 2:42 PM CDT Temperature - - Respiratory Rate 16 05/04/2025 2:42 PM CDT Oxygen Saturation 99% 05/04/2025 2:42 PM CDT Inhaled Oxygen Concentration - - Weight - - Height - - Body Mass Index - - documented in this encounter Medications at Time of Discharge albuterol HFA (PROVENTIL HFA,VENTOLIN HFA,PROAIR HFA) 90 mcg/actuation inhalerIndications:M ild intermittent asthma without complication Inhale 2 puffs every 4 (four) hours as needed for wheezing 3 each 3 04/07/2025 celecoxib (CeleBREX) 200 mg capsuleIndications:O steoarthritis Take 1 capsule (200 mg total) by mouth 2 (two) times a day 60 capsule 3 04/07/2025 diclofenac sodium (VOLTAREN) 1 % gelIndications:Osteo arthritis Apply 4 g topically 4 (four) times a day 450 g 11 04/07/2025 traMADoL (ULTRAM) 50 mg tabletIndications:Lo calized osteoarthritis of knees, bilateral,Primary osteoarthritis involving multiple joints Take 1 tablet (50 mg total) by mouth every 8 (eight) hours as needed for pain 90 tablet 5 04/07/2025 documented as of this encounter Discharge Disposition Disposition Code Departure Means Destination Discharge to home or self care documented in this encounter Progress Notes * Nubia Thorpe RN - 05/04/2025 3:00 PM CDT Level 2 Escorted patient to exam room. Obtained vital signs. Reviewed patient's allergies and current medications. Obtained and verified patient's simple medical/surgical history. Confirmed the reason for visit with the patient. Obtained the following screening assessments: [] Modified Oswestry Low Back Pain Questionnaire [] PMC Intake Questionnaire [] PMC Follow up Questionnaire [] Fall Risk Assessment (Elana Dean Steadi) [x] Depression/Anxiety Assessment (GAD7, PHQ-9, [place] Suicide, Cha Depression) [] Disability Scale [] CAGE [x] JEANETTE/PEG/COMM Additional tasks included: [] Random medication adherence check (pill verification by two nurses) [] Work/school note written [] Pended CT/MRI/MRA order [] Pain assessment for multiple sites Vital Signs Pulse: 73 Resp: 16 BP: 138/100 SpO2: 99 % Post-visit transport confirmed with the patient. Total time spent for patient care, education, and care coordination was approximately 11-20 minutes. * Helga Keyes NP - 05/04/2025 3:00 PM CDT Treatment Summary Impression: Chronic bilateral knee pain and multi large joint pain; patient deferred interventionaloptions The following imaging/procedural orders were placed during this visit: Orders Placed This Encounter Procedures Ambulatory referral to Pain Management Medications: none Follow up: PRN Patient Name: Desmond Figueroa Age: 49 y.o. [facility] New Patient Visit Subjective Desmond Figueroa presents today at the recommendation of Dayami Davis NP for initial evaluation regarding his history of bilateral knee pain. PMH is notable for obesity and tobacco use. 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 Reports he has been following with Orthopedic surgery and knows that he needs bilateral knee replacements. Presents primarily to establish for medication management. Reports that he has had steroid injections in the past in both his knees, with no lasting benefit. THERAPIES TO DATE INTERVENTIONS: RELEVANT SURGERIES: Current medications: [x] Tylenol [] Gabapentin [] Nortriptyline [x] Tramadol [] Oxycontin [] Flexeril [] Lidocaine patch [] -Triptans [] Aspirin [] Lyrica [] Amitriptyline [] Tylenol 3 [] MSContin [] Tizanidine [] OTC topicals [] Propranolol [] Aleve [] Cymbalta [] Topiramate [] Codeine [] Dilaudid [] Baclofen [] Capsaicin [] Botox [] Ibuprofen [] Valproate [] Oxycodone [] Methadone [] Soma [] Fioricet [] Meloxicam [] Carbamazepine [x] [place] [] Fentanyl [] Metaxalone [] Diclofenac [] Naltrexone [] Percocet [] Buprenorphine [] Methocarbamol [] Celebrex [] Morphine [] Nucynta [] Soma Other: CONSERVATIVE MEASURES [] Physical Therapy [] Chiropractor [] Home Exercise [] Yoga/stretching [] TENS Unit [x] OTC medications (see above) [] Heat/ice [] Other ( , brace) Pt has tried the conservative measures indicated above for at least 12 month(s) with inadequate relief. Desmond Figueroa's history was reviewed and updated as appropriate including past medical history, past surgical history, social history, family history, allergies, and home medication list. A review of systems was completed, reviewed, and scanned into the chart. JEANETTE, PEG Scale, and Current Opioid Misuse Measure (COMM) reviewed during this encounter. Modified Oswestry Low Back Pain Score: 31 Objective Vitals: 05/04/25 1442 BP: 138/100 Pulse: 73 Resp: 16 SpO2: 99% PHYSICAL EXAM General: Pleasant, no acute distress, normal appearance, grooming and nutrition Skin: No rashes or lesions on exposed skin Heart/Lungs: non labored breathing Neuro/MSK: Patient deferred focused exam DIAGNOSTICS I have reviewed all relevant imaging studies and explained pertinent findings to the patient. Assessment/Plan Bilateral chronic knee pain Pleasure to meet Desmond clinic today. He presents primarily to establish care for medication management. Discussed that given his age and known side effects of long-term use of opioid analgesics such as hyperalgesia, immunosuppression, GI effects, etcetera; I am not inclined to continue medication regimen at this time. Offered to discuss non-surgical interventional options for his bilateral knee pain in the interim such as genicular RFA, but patient declined. Desmond is welcome back at any time should he change his mind regarding pursuing possible interventions. Helga Keyes NP Interventional Pain Management [facility] PLAN JUSTIFICATION MIPS Best Practice documentation Blood pressure in clinic today was BP: 138/100. This classifies as a hypertensive BP reading (SBP > 140 OR DBP > 90). Recommended lifestyle modifications and discussion with PCP. Patient is a tobacco user. Patient was briefly counseled about the risks of tobacco use and the benefits of stopping. Patient has been advised to quit, and if that fails, to discuss pharmacological options with their family doctor. PATIENT EDUCATION Learning needs assessment was performed and no barriers identified. Explained diagnosis and treatment plan. Patient expressed understanding and was able to teach back. I personally spent a total of 4 minutes of mtd-aixp-og-face time performing a review of the record and/or discussion with the patient/caregiver as described above. Total time spent with patient 20 minutes, total time in counseling 15 minutes. TOWER HAND: Shower Enclosure Installer completed with Fluency [employer], dictation proofread to best of my ability. documented in this encounter Plan of Treatment Scheduled Referrals Name Type Priority Associated Diagnoses Orde r Schedule Ambulatory referral to Pain Management Outpatient Referral Routine Localized osteoarthritis of knees, bilateral Primary osteoarthritis involving multiple joints Once for 1 Occurrences starting 05/04/2025 until 05/04/2025 documented as of this encounter Goals Goal Patient Goal Type Associated Problems Recent Progress Patient-Stated? Author [facility]-Pain Behavioral Health On track( 018 10:31 AM CDT) No Adelina Nicole, RN Note: Patient will describe how unrelieved pain will be managed. documented as of this encounter Visit Diagnoses Diagnosis Localized osteoarthritis of knees, bilateral Primary osteoarthritis involving multiple joints documented in this encounter Care Teams Clinical Implementation Specialist Relationship Specialty Start Date End Date Dayami Olmstead [facility] [address] [place] [address] PCP - General Internal Medicine 04/07/25 Adelina Nicole, RN Registered Nurse 01/07/18 documented as of this encounter
--- OUTSIDE RECORDS SUMMARY | 2025-05-05 15:43 | XMS_ITS | Encounter Summary ---
Author Organization [facility] Address [address] [facility] [place] [address] Phone Care Team Providers Care Roll Coverer Name Role Phone Donaldo Gamboa MD Primary Care Provider +1 [phone] Provider, None Primary Care Provider Unavailabl e Reason for Visit * Reason Comments Medication Refill Encounter Details Date Type Department Care Team (Late st Contact Info) Description 09/29/2023 Refill [facility] #2 [place] [address] Donaldo Gamboa MD #[address] [address] Medication Refill Social History Tobacco Use Types [...] suspected to have Coronavirus/COVID-19? No / Unsure 09/02/2023 4:01 PM CDT documented as of this encounter Miscellaneous Notes * Telephone Encounter - Uzma Deluca RN - 09/29/2023 3:19 PM CDT Medication failed the protocol, provider to review and approve the medication order if appropriate. Requested Prescriptions Pending Prescriptions Disp Refills diclofenac (VOLTAREN) 75 MG Tablet Delayed Response [Pharmacy Med Name: DICLOFENAC SODIUM 75MG DR TABLETS] 60 Tablet 0 Sig: TAKE 1 TABLET BY MOUTH TWICE DAILY NSAIDs Protocol Failed - 09/29/2023 10:18 AM Failed - Normal serum creatinine in past 12 months No results found for: CREATININE Failed - No matching NSAID med order in past 45 days Matching medication order placed on 08/28/2023 1:51 PM Order [id number]: diclofenac (VOLTAREN) 75 MG Tablet Delayed Response (For orders placed between 08/15/2023 3:19 PM and 09/29/2023 3:19 PM) Failed - AST less than 55 [...] days Recent Visits Date Type Provider Dept 09/02/23 Office Visit Donaldo Gamboa MD [facility] 11/05/22 Office Visit Edward Yepez APRN, ALVARO [facility] 10/16/22 Office Visit Donaldo Gamboa MD [facility] Showing recent visits within past 365 days and meeting all other requirements Future Appointments Date Type Provider Dept 12/04/23 Appointment Donaldo Gamboa MD [facility] Showing future appointments within next 90 days and meeting all other requirements documented in this encounter Plan of Treatment Not on file documented as of this encounter Visit Diagnoses Diagnosis Chronic joint pain Pain in joint, site unspecified documented in this encounter Additional Health Concerns Assessment Noted Time PHQ-9 Depression Total Score: 0 11/16/20 10:44 AM WEB APPLICATIONS PROGRAMMER documented as of this encounter Care Teams Roll Coverer Relationship Specialty Start Date End Date Donaldo Gamboa MD #[address] [address] PCP - General Family Medicine 12/06/17 02/01/24 Provider, None [place] PCP - General 06/06/24 documented as of this encounter
--- OUTSIDE RECORDS SUMMARY | 2025-05-05 15:43 | XMS_ITS | Encounter Summary ---
Author Organization [facility] Address [address] [facility] [place] [address] Phone Care Team Providers Care Assistant Activities Director Name Role Phone Donaldo Crockett MD Primary Care Provider [phone] [phone] Provider, None Primary Care Provider Unavailabl e Reason for Visit * Reason Comments Medication Refill Encounter Details Date Type Department Care Team (Late st Contact Info) Description 06/30/2023 Refill [facility] - [place] #2 [place] [address] Donaldo Crockett MD #[address] [address] Medication Refill Social History Tobacco Use Types [...] Telephone Encounter - Uzma Deluca RN - 06/30/2023 12:21 PM CDT No Show 03/06/23 Pt has BCBS Medicaid - we do NOT accept this insurance. He was last seen in July 2022 by Edward. He has been told he needs to find a new provider in his network or change insurance companies. How do you want to proceed? * Telephone Encounter - Uzma Deluca RN - 06/30/2023 12:10 PM CDT PDMP [place] 05/31/23 Medication failed the protocol, provider to review and approve the medication order if appropriate. Requested Prescriptions Pending Prescriptions Disp Refills diclofenac (VOLTAREN) 75 MG Tablet Delayed Response [Pharmacy Med Name: DICLOFENAC SODIUM 75MG DR TABLETS] 60 Tablet 0 Sig: TAKE 1 TABLET BY MOUTH TWICE DAILY NSAIDs Protocol Failed - 06/30/2023 6:27 AM Failed - Normal serum creatinine in past 12 months No results found for: CREATININE Failed - AST less than 55 or [...] Dept 11/05/22 Office Visit Edward Yepez APRN, CNP [facility] 10/16/22 Office Visit Donaldo Crockett MD [facility] 07/03/22 Office Visit Edward Yepez APRN, CNP [facility] Showing recent visits within past 365 days and meeting all other requirements Future Appointments No visits were found meeting these conditions. Showing future appointments within next 90 days and meeting all other requirements Passed - No matching NSAID med order in past 45 days No matching medication orders between 05/16/2023 12:10 PM and 06/30/2023 12:10 PM HYDROcodone-acetaminophen (NORCO) 10-325 MG Tablet 120 Tablet 0 Sig: Take 1 Tablet by mouth every 6 hours as needed for Moderate or more severe pain. There is no refill protocol information for this order Refused Prescriptions Disp Refills amphetamine-dextroamphetamine (Adderall XR) 20 MG CAPSULE SR 24 HR 60 Capsule 0 Sig: Take 1 Capsule by mouth 2 times daily. There is no refill protocol information for this order * Telephone Encounter - Uzma Deluca RN - 06/30/2023 12:07 PM CDT Images from the original note were not included. Amphetamine-Dextroamphetamine Dispensed Written Strength Quantity Refills Days Supply Provider Pharmacy MIXED AMPHETAMINE SALT 06/13/2023 05/27/2023 20 MG 60 0 30 , DONALDO CORCKETT M.D.[place] [facility] Next fill date 07/13/23 - refill too soon documented in this encounter Plan of Treatment Not on file documented as of this encounter Visit Diagnoses Diagnosis Chronic joint pain Pain in joint, site unspecified Chronic pain syndrome Attention deficit hyperactivity disorder (ADHD), combined type documented in this encounter Additional Health Concerns Assessment Noted Time PHQ-9 Depression Total Score: 0 11/16/20 20 10:44 AM MANAGER ADOBE documented as of this encounter Care Teams Assistant Activities Director Relationship Specialty Start Date End Date Donaldo Crockett MD #[address] [address] PCP - General Family Medicine 12/06/17 02/01/24 Provider, None [place] PCP - General 06/06/24 documented as of this encounter
--- OUTSIDE RECORDS SUMMARY | 2025-05-05 15:43 | XMS_ITS | Encounter Summary ---
Author Organization [facility] Address [address] [facility] [place] [address] Phone Care Team Providers Care Cork Insulator Name Role Phone Donaldo Gamboa MD Primary Care Provider [phone] [phone] Provider, None Primary Care Provider Unavailabl e Reason for Visit * Reason Comments Medication Refill Encounter Details Date Type Department Care Team (Late st Contact Info) Description 10/05/2021 Refill [facility] #2 [place] [address] Donaldo Gamboa MD #[address] [address] Medication Refill Social History Tobacco Use Types Packs/Day Years Used Date Smoking Tobacco: Every Day Cigarettes Smokeless Tobacco: Never Alcohol Use Standard [...] on file documented as of this encounter Plan of Treatment Not on file documented as of this encounter Visit Diagnoses Diagnosis Anxiety Anxiety state, unspecified documented in this encounter Additional Health Concerns Assessment Noted Time PHQ-9 Depression Total Score: 0 11/16/20 20 10:44 AM HOSPITAL MEDICINE DIRECTOR documented as of this encounter Care Teams Cork Insulator Relationship Specialty Start Date End Date Donaldo Gamboa MD #[address] [address] PCP - General Family Medicine 12/06/17 02/01/24 Provider, None [place] PCP - General 06/06/24 documented as of this encounter
--- OUTSIDE RECORDS SUMMARY | 2025-05-05 15:43 | XMS_ITS | Encounter Summary ---
Author Organization [facility] Address [address] [facility] [place] [address] Phone Care Team Providers Care Uniform Room Attendant Name Role Phone Donaldo Gamboa MD Primary Care Provider [phone] [phone] Provider, None Primary Care Provider Unavailabl e Reason for Visit * Reason Comments Medication Refill Encounter Details Date Type Department Care Team (Late st Contact Info) Description 12/28/2023 Refill [facility] #2 [place] [address] Donaldo Gamboa MD #[address] [address] Medication Refill Social History Tobacco Use Types [...] Telephone Encounter - Uzma Deluca RN - 12/29/2023 10:23 AM CST Name from pharmacy: DICLOFENAC SODIUM [address] DR TABLETS Will file in chart as: diclofenac (VOLTAREN) 75 MG Tablet Delayed Response The original prescription was reordered on 12/28/2023 by Donaldo Gamboa MD. OLOGY NURSE * Telephone Encounter - Emilee Llamas RN - 12/28/2023 11:35 AM RADIOLOGY NURSE duplicate OLOGY NURSE documented in this encounter Plan of Treatment Not on file documented as of this encounter Visit Diagnoses Diagnosis Chronic joint pain Pain in joint, site unspecified documented in this encounter Additional Health Concerns Assessment Noted Time PHQ-9 Depression Total Score: 0 11/16/20 10:44 AM RADIOLOGY NURSE documented as of this encounter Care Teams Uniform Room Attendant Relationship Specialty Start Date End Date Donaldo Gamboa MD #[address] [address] PCP - General Family Medicine 12/06/17 02/01/24 Provider, None [place] PCP - General 06/06/24 documented as of this encounter
--- OUTSIDE RECORDS SUMMARY | 2025-05-05 15:43 | XMS_ITS | Encounter Summary ---
Author Organization [facility] Address [address] [facility] [place] [address] Phone Care Team Providers Care Manager Loan Name Role Phone Donaldo Gamboa MD Primary Care Provider [phone] [phone] Provider, None Primary Care Provider Unavailabl e Reason for Visit * Reason Comments Medication Refill Encounter Details Date Type Department Care Team (Late st Contact Info) Description 12/28/2023 Refill [facility] #2 [place] [address] Donaldo Gamboa MD #[address] [address] Medication Refill Social History Tobacco Use Types [...] Encounter - Emilee Llamas RN - 12/28/2023 9:52 AM CRYPTOLOGIC TECHNICIAN TECHNICAL Medication failed the protocol, provider to review and approve the medication order if appropriate. Requested Prescriptions Pending Prescriptions Disp Refills diclofenac (VOLTAREN) 75 MG Tablet Delayed Response [Pharmacy Med Name: DICLOFENAC SODIUM 75MG DR TABLETS] 60 Tablet 0 Sig: TAKE 1 TABLET BY MOUTH TWICE DAILY NSAIDs Protocol Failed - 12/28/2023 7:19 AM Failed - Normal serum creatinine in past 12 months CREATININE, BLOOD Date Value Ref Range Status 12/16/2023 0.67 (L) 0.70 - 1.30 mg/dL Final Failed - No matching NSAID med order in past 45 days Matching medication order placed on 11/26/2023 1:50 PM Order [id number]: diclofenac (VOLTAREN) 75 MG Tablet Delayed Response (For orders placed between 11/13/2023 9:52 AM and 12/28/2023 9:52 AM) Passed - Visit with relevant provider in past 12 months or upcoming 90 days Recent Visits Date Type Provider Dept 12/18/23 Telemedicine Donaldo Gamboa MD [facility] 09/02/23 Office Visit Donaldo Gamboa MD [facility] Showing recent visits within past 365 days and meeting all other requirements Future Appointments Date Type Provider Dept 01/13/24 Appointment Edward Yepez APRN, AGRICULTURAL EQUIPMENT DESIGN ENGINEER [facility] Showing future appointments within next 90 days and meeting all other requirements Passed - AST less than 55 or ALT less than 90 in past 12 months SGOT (AST) Date Value Ref Range Status 12/16/2023 20 5 - 34 U/L Final SGPT (ALT) Date Value Ref Range Status 12/16/2023 22 0 - 55 U/L Final Passed - HGB greater than 10 or HCT greater than 30 in past 12 months HEMOGLOBIN (HGB) Date Value Ref Range Status 12/16/2023 15.2 13.0 - 16.5 g/dL Final HEMATOCRIT (HCT) Date Value Ref Range Status 12/16/2023 44.2 38.0 - 50.0 % Final TOLOGIC TECHNICIAN TECHNICAL documented in this encounter Plan of Treatment Not on file documented as of this encounter Visit Diagnoses Diagnosis Chronic joint pain Pain in joint, site unspecified documented in this encounter Additional Health Concerns Assessment Noted Time PHQ-9 Depression Total Score: 0 11/16/20 20 10:44 AM CRYPTOLOGIC TECHNICIAN TECHNICAL documented as of this encounter Care Teams Manager Loan Relationship Specialty Start Date End Date Donaldo Gamboa MD #[address] [address] PCP - General Family Medicine 12/06/17 02/01/24 Provider, None [place] PCP - General 06/06/24 documented as of this encounter
--- OUTSIDE RECORDS SUMMARY | 2025-05-05 15:43 | XMS_ITS | Encounter Summary ---
Author Organization [facility] Address [address] [facility] [place] [address] Phone Care Team Providers Care Fitting Room Operator Name Role Phone Donaldo Gamboa MD Primary Care Provider [phone] [phone] Provider, None Primary Care Provider Unavailabl e Reason for Visit * Reason Comments Medication Refill Encounter Details Date Type Department Care Team (Late st Contact Info) Description 09/29/2023 Refill [facility] #2 [place] [address] Donaldo Gamboa MD #[address] [address] Medication Refill Social History Tobacco Use Types [...] Encounter - Uzma Deluca RN - 09/29/2023 1:34 PM CDT Medication failed the protocol, provider to review and approve the medication order if appropriate. Requested Prescriptions Pending Prescriptions Disp Refills tiZANidine (ZANAFLEX) 2 MG Tablet [Pharmacy Med Name: TIZANIDINE 2MG TABLETS] 60 Tablet 0 Sig: TAKE 1 TO 2 TABLETS BY MOUTH AT BEDTIME Not Delegated - Muscle Relaxants Protocol Failed - 09/29/2023 3:17 AM Failed - This refill cannot be delegated Failed - ALT less than 90 and AST less than 55 on record in past 12 months No results found for: SGOTAST No results found for: SGPTALT Passed - Visit with relevant provider in past 12 months or upcoming 90 days Recent Visits Date Type Provider Dept 09/02/23 Office Visit Donaldo Gamboa MD [facility] 11/05/22 Office Visit Edward [facility]pez APRN, [facility] 10/16/22 Office Visit Donaldo Gamboa MD [facility] Showing recent visits within past 365 days and meeting all other requirements Future Appointments Date Type Provider Dept 12/04/23 Appointment Donaldo Gamboa MD [facility] Showing future appointments within next 90 days and meeting all other requirements documented in this encounter Plan of Treatment Not on file documented as of this encounter Visit Diagnoses Not on filedocumented in this encounter Additional Health Concerns Assessment Noted Time PHQ-9 Depression Total Score: 0 11/16/20 20 10:44 AM WELL SITE DRILLING ENGINEER documented as of this encounter Care Teams Fitting Room Operator Relationship Specialty Start Date End Date Donaldo Gamboa MD #[address] [address] PCP - General Family Medicine 12/06/17 02/01/24 Provider, None [place] PCP - General 06/06/24 documented as of this encounter
--- OUTSIDE RECORDS SUMMARY | 2025-05-05 15:43 | XMS_ITS | Encounter Summary ---
Author Organization [facility] Address [address] [facility] [place] [address] Phone Care Team Providers Care Data Security Coordinator Name Role Phone Donaldo Gamboa MD Primary Care Provider [phone] Provider, None Primary Care Provider Unavailabl e Reason for Visit * Reason Onset Date Comments Medication Management 02/06/2022 Encounter Details Date Type Department Care Team (Late st Contact Info) Description 02/06/2022 Telephone [facility] - Family Medicine - [place] #2 [place] [address] Donaldo Gamboa MD #[address] [address] Medication Management Social History Tobacco Use Types Packs/Day Years [...] encounter Miscellaneous Notes * Telephone Encounter - Donaldo Gamboa MD - 02/07/2022 1:48 PM BUSINESS SUPPORT COORDINATOR Thanks for the update! NESS SUPPORT COORDINATOR * Telephone Encounter - Uzma Deluca RN - 02/07/2022 1:09 PM CST Patient has been notified. He appreciates the refill and will try to get into another provider. NESS SUPPORT COORDINATOR * Telephone Encounter - Donaldo Gamboa MD - 02/06/2022 10:24 PM BUSINESS SUPPORT COORDINATOR Let him know I have called in his last refill. Tell him to switch over to an insurance that we takeor find another provider. No more refills after this one. Thanks! NESS SUPPORT COORDINATOR * Telephone Encounter - Uzma Deluca RN - 02/06/2022 3:30 PM CST Patient can't come in. His insurance is not in our network. He has to find another provider else where that takes his insurance. He wants to know if you are going to prescribe the pain medication. NESS SUPPORT COORDINATOR * Telephone Encounter - Donaldo Gamboa MD - 02/06/2022 1:31 PM BUSINESS SUPPORT COORDINATOR Please help me with this message. Thanks! NESS SUPPORT COORDINATOR * Telephone Encounter - Lynn Cox - 02/06/2022 11:45 AM CST Patient made an appointment to come in tomorrow but I called him and told him we are not in [place] his insurance which is BC[employer] Medicaid. He wants his Hydrocodone called in but has not been in to see doctor since May of 2021. Patient wants a call to let him know whether or not he will be able to get this medication or not. NESS SUPPORT COORDINATOR documented in this encounter Plan of Treatment Not on file documented as of this encounter Visit Diagnoses Diagnosis Chronic joint pain Pain in joint, site unspecified documented in this encounter Additional Health Concerns Assessment Noted Time PHQ-9 Depression Total Score: 0 11/16/20 20 10:44 AM BUSINESS SUPPORT COORDINATOR documented as of this encounter Care Teams Data Security Coordinator Relationship Specialty Start Date End Date Donaldo Gamboa MD #[address] [address] PCP - General Family Medicine 12/06/17 02/01/24 Provider, None [place] PCP - General 06/06/24 documented as of this encounter
--- OUTSIDE RECORDS SUMMARY | 2025-05-05 15:43 | XMS_ITS | Encounter Summary ---
Author Organization [facility] Address [address] [facility] [place] [address] Phone Care Team Providers Care Enterprise Application Administrator Name Role Phone Donaldo Gamboa MD Primary Care Provider [phone] [phone] Provider, None Primary Care Provider Unavailabl e Reason for Visit * Reason Comments Medication Refill Encounter Details Date Type Department Care Team (Late st Contact Info) Description 08/28/2023 Refill [facility] [address]2 [place] [address] Donaldo Gamboa MD #[address] [address] Medication Refill Social History Tobacco Use Types [...] Telephone Encounter - Emilee Llamas RN - 08/28/2023 1:06 PM CDT Medication failed the protocol, provider to review and approve the medication order if appropriate. Requested Prescriptions Pending Prescriptions Disp Refills diclofenac (VOLTAREN) 75 MG Tablet Delayed Response [Pharmacy Med Name: DICLOFENAC SODIUM 75MG DR TABLETS] 60 Tablet 0 Sig: TAKE 1 TABLET BY MOUTH TWICE DAILY NSAIDs Protocol Failed - 08/28/2023 12:40 PM Failed - Normal serum creatinine in past 12 months No results found for: CREATININE Failed - No matching NSAID med order in past 45 days Matching medication order placed on 07/31/2023 4:18 PM Order [id number]: diclofenac (VOLTAREN) 75 MG Tablet Delayed Response (For orders placed between 07/14/2023 1:06 PM and 08/28/2023 1:06 PM) Failed - AST less than 55 [...] 11/05/22 Office Visit Edward Yepez APRN, ALVARO [facility] 10/16/22 Office Visit Donaldo Gamboa MD [facility] Showing recent visits within past 365 [...] Total Score: 0 11/16/20 20 10:44 AM STOCK PARTS INSPECTOR documented as of this encounter Care Teams Enterprise Application Administrator Relationship Specialty Start Date End Date Donaldo Gamboa MD #[address] [address] PCP - General Family Medicine 12/06/17 02/01/24 Provider, None [place] PCP - General 06/06/24 documented as of this encounter
--- OUTSIDE RECORDS SUMMARY | 2025-05-05 15:43 | XMS_ITS | Encounter Summary ---
Author Organization [facility] Address [address] [facility] [place] [address] Phone Care Team Providers Care Business Programmer Name Role Phone Donaldo Gamboa MD Primary Care Provider [phone] [phone] Provider, None Primary Care Provider Unavailabl e Reason for Visit * Reason Comments Medication Refill Encounter Details Date Type Department Care Team (Late st Contact Info) Description 05/31/2022 Refill [facility] - [place] #2 [place] [address] Donaldo Gamboa MD #[address] [address] Medication Refill Social History Tobacco Use Types [...] Telephone Encounter - Donaldo Gamboa MD - 06/01/2022 11:57 PM CDT Thanks for the update! * Telephone Encounter - Edda Colon RMA - 05/31/2022 12:39 PM CDT Spoke with patient, he is waiting for new insurance to start from his employer which should be soonthen he states he will schedule, as of right now we do not take his medicaid and unable to pay cashfor o.v. * Telephone Encounter - Donaldo Gamboa MD - 05/31/2022 11:46 AM CDT Schedule him to see me or Edward since he is overdue. Thanks! * Telephone Encounter - Uzma Deluca RN - 05/31/2022 11:23 AM CDT Patient needs an appointment with PCP/BROACH SETTER * Telephone Encounter - Uzma Deluca RN - 05/31/2022 11:22 AM CDT Medication failed the protocol, provider to review and approve the medication order if appropriate. Requested Prescriptions Pending Prescriptions Disp Refills diclofenac (VOLTAREN) 75 MG Tablet Delayed Response [Pharmacy Med Name: DICLOFENAC SODIUM 75MG DR TABLETS] 60 Tablet 0 Sig: TAKE 1 TABLET BY MOUTH TWICE DAILY NSAIDs Protocol Failed - 05/31/2022 6:48 AM Failed - Normal serum creatinine in [...] days Recent Visits Date Type Provider Dept 06/07/21 Office Visit Edward Yepez, DEFENSIVE DRIVING INSTRUCTOR, [facility] Showing recent visits within past 365 days and meeting all other requirements Future Appointments No visits were found meeting these conditions. Showing future appointments within next 90 days and meeting all other requirements Passed - No matching NSAID med order in past 45 days No matching medication orders between 04/16/2022 11:22 AM and 05/31/2022 11:22 AM documented in this encounter Plan of Treatment Not on file documented as of this encounter Visit Diagnoses Diagnosis Primary osteoarthritis of both knees Primary localized osteoarthrosis, lower leg documented in this encounter Additional Health Concerns Assessment Noted Time PHQ-9 Depression Total Score: 0 11/16/20 20 10:44 AM SUPERVISOR BLOOD DONOR RECRUITERS documented as of this encounter Care Teams Business Programmer Relationship Specialty Start Date End Date Donaldo Gamboa MD #[address] [address] PCP - General Family Medicine 12/06/17 02/01/24 Provider, None [place] PCP - General 06/06/24 documented as of this encounter
--- OUTSIDE RECORDS SUMMARY | 2025-05-05 15:43 | XMS_ITS | Clinical Summary ---
Author Organization [facility] Address [address] [place] [address] Phone Care Team Providers Care Inbound Customer Service Representative Name Role Phone Provider, None Primary Care Provider Unavailabl e Allergies No known active allergies Medications acetaminophen (TYLENOL) 500 MG Tablet Take 500 mg by mouth every 4 hours as needed. Active methocarbamol (ROBAXIN) 750 MG Tablet Take 1 Tablet by mouth nightly as needed for Other. 30 Tablet 4 Active diclofenac (VOLTAREN) 75 MG Tablet Delayed ResponseIndicatio ns:Chronic joint pain TAKE 1 TABLET BY MOUTH TWICE DAILY 60 Tablet 4 Active albuterol 108 (90 Base) MCG/ACT Aerosol SolutionIndicatio ns:Mild intermittent asthma without complication INHALE 2 PUFFS BY MOUTH EVERY 4 HOURS NEEDED FOR WHEEZING OR COUGH 8.5 g 1 4 Active cyclobenzaprine (FLEXERIL) 5 MG Tablet Take 1 Tablet by mouth 3 times daily as needed for Muscle spasms. 15 Tablet 4 Active methylPREDNISolon e (MEDROL DOSPACK) 4 MG Tablet Therapy Pack See product package insert for dosing schedule 21 Tablet 4 Active ondansetron (ZOFRAN) 4 MG TabletIndications :Nausea and Vomiting Take 1 Tablet by mouth every 8 hours as needed for Nausea - 1st line. Indications: Nausea and Vomiting 10 Tablet 5 Active traMADol (ULTRAM) 50 MG TabletIndications :Osteoarthritis of right knee Take 1 Tablet by mouth every 8 hours as needed for Moderate or more severe pain. 12 Tablet Active Active Problems Problem Noted Date Diagnosed Date Elbow swelling, right 12/18/2023 Fall 12/18/2023 Obesity (BMI 30-39.9) 09/02/2023 Left hand pain 09/02/2023 Noncompliance 09/02/2023 Bilateral elbow joint pain 10/16/2022 Chronic pain syndrome 10/16/2022 Attention deficit hyperactivity disorder (ADHD) 10/16/2022 Hyperglycemia 10/16/2022 Vitamin D deficiency 10/16/2022 Low libido 10/16/2022 Anxiety 11/16/2020 Osteoarthritis 11/16/2020 Morbid obesity 12/25/2017 History of left knee surgery 12/25/2017 Chronic joint pain 12/25/2017 Mild intermittent asthma without complication Tobacco abuse 12/25/2017 Encounters Date Type Department Care Team Description 02/28/2025 1:50 PM CDT - 02/28/2025 4:58 PM CDT Emergency [facility] Emergency [address] [place] [address] Karan Floyd, PAC Nausea Discharge Disposition: Discharged to home or Selfcare 02/28/2025 Travel from Last 3 Months Immunizations Immunization Administration Dates Next Due Influenza Vaccine greater than 3 yrs 08/25/2020 Influenza, Seasonal, Injectable, Undefined 08/25 TDAP Vaccine 07/12/2021 Social History Tobacco Use Types Packs/Day Years Used Date Smoking Tobacco: Heavy Smoker Cigarettes Smokeless Tobacco: Never Tobacco Cessation:Ready to Q uit: Not Asked; Counseling Given: Not Answered Alcohol Use Standard Drinks/Week Comments Not Currently 0 (1 standard drink = 0.6 oz [...] Sign Reading Time Taken Comments Blood Pressure 163/97 02/28/2025 2:02 PM CDT Pulse 71 02/28/2025 2:02 PM CDT Temperature 36.4 C (97.6 F) 02/28/2025 2:02 PM CDT Respiratory Rate 18 02/28/2025 2:02 PM CDT Oxygen Saturation 100% 02/28/2025 2:02 PM CDT Inhaled Oxygen Concentration - - Weight 117.9 kg (260 lb) 02/28/2025 2:02 PM CDT Height 185.4 cm (6' 1) 02/28/2025 2:02 PM CDT Body Mass Index 34.3 02/28/2025 2:02 PM CDT Plan of Treatment Health Maintenance Due Date Last Done Comments Hepatitis C Virus (HCV) Screening 1976 Hepatitis B Immunization (1 of 3 - 19+ 3-dose series) 1995 Pneumococcal Immunization Combined (1 of 2 - PCV) 1995 Colonoscopy 2021 Colorectal Cancer Screening 2021 SARS-COV-2 Immunization ( - 2023- season) 2024 Influenza Immunization (Seas on Ended) 2025 08/25/2020, 08/25/2020 Td Immunization Every 10 Yea rs (Adults With 1 Tdap) 07/12/2031 07/12/2021 Respiratory Syncytial Virus (RSV) Immunization (Adult) (1 - 1-dose 75+ series) 2051 Human Papillomavirus (HPV) Immunization Aged Out No longer eligible b ased on patient's age to complete this topic Meningococcal Immunization (ACWY) Aged Out No longer eligible b ased on patient's age to complete this topic Rotavirus Immunization Aged Out No lo nger eligible based on patient's age to complete this topic Procedures Procedure Name Priority Date/Time Associated Diagnosis Comments XR KNEE 1 OR 2 VIEWS RIGHT STAT 02/28/2025 2:41 PM CDT CBC WITH AUTO DIFFERENTIAL STAT 02/28/2025 2:31 PM CDT LIPASE STAT 02/28/2025 2:31 PM CDT CMP (COMPREHENSIVE METABOLIC PANEL) STAT 02/28/2025 2:31 PM CDT COMPLETE BLOOD COUNT (CBC) WITH DIFF STAT 02/28/2025 2:31 PM CDT from Last 3 Months Results * XR KNEE 1 OR 2 VIEWS RIGHT (02/28/2025 2:41 PM CDT) Anatomical Region Laterality Modality LOWER EXTREMITY, knee Right Digital Ra diography 02/28/2025 3:15 PM CDT Impressions 02/28/2025 3:18 PM CDT IMPRESSION: No acute osseous abnormality. Severe tricompartmental osteoarthritis with multiple intra-articular loose bodies. Narrative 02/28/2025 3:18 PM CDT EXAM DESCRIPTION: XR KNEE 1 OR 2 VIEWS RIGHT REASON FOR STUDY: chronic pain in right knee, worse x 1 hour ago. NKI. pt states he has a popping sound when bending his knee. difficulty bearing weight. limited ROM. TECHNIQUE: 3 radiographic view(s) of the right knee . COMPARISON: Comparison 10/20/2017. FINDINGS: BONES/JOINTS: There is no acute fracture, malalignment or osseous abnormality. Severe osteophytic spurring and joint space narrowing tricompartmental in keeping with advanced osteoarthritis. SOFT TISSUES: Multiple intra-articular loose bodies most evident in the suprapatellar and posterior joint space. THIS IS AN ELECTRONICALLY VERIFIED FINAL REPORT 02/28/2025 3:15 PM - Electronically signed by Jose Enrique Hitchcock M.D. LC: JACKIE Report ID: [id number] Reading Location: [id number] Procedure Note Paulette Hitchcock MD - 02/28/2025 EXAM DESCRIPTION: XR KNEE 1 OR 2 VIEWS RIGHT REASON FOR STUDY: chronic pain in right knee, worse x 1 hour ago. NKI. pt states he has a popping sound when bending his knee. difficulty bearing weight. limited ROM. TECHNIQUE: 3 radiographic view(s) of the right knee . COMPARISON: Comparison 10/20/2017. FINDINGS: BONES/JOINTS: There is no acute fracture, malalignment or osseous abnormality. Severe osteophytic spurring and joint space narrowing tricompartmental in keeping with advanced osteoarthritis. SOFT TISSUES: Multiple intra-articular loose bodies most evident in the suprapatellar and posterior joint space. THIS IS AN ELECTRONICALLY VERIFIED FINAL REPORT 02/28/2025 3:15 PM - Electronically signed by Jose Enrique Hitchcock M.D. LC: JACKIE Report ID: [id number] Reading Location: [id number] IMPRESSION: No acute osseous abnormality. Severe tricompartmental osteoarthritis with multiple intra-articular loose bodies. Karan Floyd [facility] IMG DIAGNOSTIC ORDER GORAN Final Result * (ABNORMAL) CBC with Auto Differential (02/28/2025 2:31 PM CDT) WBC 8.70 4.00 - 12.00 10(3)/mcL 02/28/2025 3:01 PM CDT [facility] RBC 4.83 4.40 - 5.80 10(6)/[facility] 02/28/2025 3:01 PM CDT [facility] HEMOGLOBIN (HGB) 15.9 13.0 - 16.5 g/dL 02/28/2025 3:01 PM CDT [facility] HEMATOCRIT (HCT) 46.2 38.0 - 50.0 % 02/28/2025 3:01 PM CDT [facility] MCV 95.7 82.0 - 96.0 fL 02/28/2025 3:01 PM CDT [facility] MCH 32.9(H) 26.0 - 32.0 pg 02/28/2025 3:01 PM CDT [facility] MCHC 34.4 31.0 - 36.0 g/dL 02/28/2025 3:01 PM CDT [facility] PLATELET COUNT 171 140 - 440 10(3)/mcL 02/28/2025 3:01 PM CDT [facility] RDW 12.8 11.8 - 15.5 % 02/28/2025 3:01 PM CDT [facility] MPV 10.6 8.0 - 12.6 fL 02/28/2025 3:01 PM CDT [facility] NEUTROPHILS 78.6(H) 40.0 - 68.0 % 02/28/2025 3:01 PM CDT [facility] LYMPHOCYTES 16.0(L) 19.0 - 49.0 % 02/28/2025 3:01 PM CDT [facility] MONOCYTES 4.6 3.0 - 13.0 % 02/28/2025 3:01 PM CDT [facility] EOSINOPHILS 0.3 0.0 - 8.0 % 02/28/2025 3:01 PM CDT [facility] BASOPHILS 0.5 0.0 - 1.0 % 02/28/2025 3:01 PM CDT [facility] ABSOLUTE NEUTROPHILS 6.84(H) 1.40 - 5.30 10(3)/[facility] 02/28/2025 3:01 PM CDT [facility] ABSOLUTE LYMPHOCYTES 1.39 0.90 - 3.30 10(3)/[facility] 02/28/2025 3:01 PM CDT [facility] ABSOLUTE MONOCYTES 0.40 0.10 - 0.90 10(3)/[facility] 02/28/2025 3:01 PM CDT [facility] ABSOLUTE EOSINOPHIL 0.03 0.00 - 0.50 10(3)/[facility] 02/28/2025 3:01 PM CDT [facility] ABSOLUTE BASOPHILS 0.04 0.00 - 0.10 10(3)/[facility] 02/28/2025 3:01 PM CDT [facility] NRBC PER 100 WBC 0 02/29/20 25 3:01 PM CDT [facility] RESULTS ARE CONSISTENT WITH PERIPHERAL SMEAR REVIEW Yes 02/28/2025 3:01 PM CDT [facility] Blood Venipuncture / Unknown 02/28/2025 2:31 PM CDT 02/28/2025 2:37 PM CDT us Karan Floyd PAC HEMATOLOGY ORDERABLE S Final Result [facility] [address] [place] [address] * Lipase (02/28/2025 2:31 PM CDT) Pathologist [facility] LIPASE 16 8 - 78 U/L 02/28/2025 2:58 PM CDT [facility] Blood Venipuncture / Unknown 02/28/2025 2:31 PM CDT 02/28/2025 2:37 PM CDT Karan Floyd PAC CHEMISTRY ORDERABLES Final Result Performing Organization Address City/[facility]/ZIP Co de Phone Number [facility] [address] [place] [address] * (ABNORMAL) CMP (02/28/2025 2:31 PM CDT) Pathologist [facility] SODIUM 140 136 - 145 mmol/L 02/28/2025 3:07 PM CDT [facility] POTASSIUM 4.3 3.5 - 5.1 mmol/L 02/28/2025 3:07 PM CDT [facility] CHLORIDE 108(H) 98 - 107 mmol/L 02/28/2025 3:07 PM CDT [facility] CO2, VENOUS 25 22 - 30 mmol/L 02/28/2025 3:07 PM CDT [facility] ANION GAP 11.3 <18.0 mmol/L 02/28/2025 3:07 PM CDT [facility] GLUCOSE 105(H) 70 - 99 mg/dL 02/28/2025 3:07 PM CDT [facility] BUN 13 9 - 21 mg/dL 02/28/2025 3:07 PM CDT [facility] CREATININE, BLOOD 0.63(L) 0.70 - 1.30 mg/dL 02/28/2025 3:07 PM CDT [facility] BUN/CREATININE RATIO 21(H) 12 - 20 ratio 02/28/2025 3:07 PM CDT [facility] TOTAL PROTEIN 7.1 6.0 - 8.0 g/dL 02/28/2025 3:07 PM CDT [facility] ALBUMIN 4.0 3.5 - 5.0 g/dL 02/28/2025 3:07 PM CDT [facility] A/G RATIO 1.3 1.0 - 2.2 02/28/2025 3:07 PM CDT [facility] CALCIUM 8.9 8.7 - 10.5 mg/dL 02/28/2025 3:07 PM CDT [facility] T BILI 0.5 0.2 - 1.2 mg/dL 02/28/2025 3:07 PM CDT [facility] SGOT (AST) 28 <43 U/L 02/28/2025 3:07 PM CDT [facility] SGPT (ALT) 17 <56 U/L 02/28/2025 3:07 PM CDT [facility] ALKALINE PHOSPHATASE 55 40 - 150 U/L 02/28/2025 3:07 PM CDT [facility] GFR, ESTIMATED >60 >=60 02/28/2025 3:07 PM CDT [facility] Comment: Creatinine Clearance is the preferred criteria for selecting drug dose adjustments in renally impaired patients. The GFR is provided as additional pertinent clinical information. GFR is reported in mL/min/1.73 sq m. Calculation based on the Chronic Kidney Disease Epidemiology Collaboration (CKD- EPI) equation refit without adjustment for race. GFR, EST. >60 >=60 025 3:07 PM CDT [facility] GFR, EST. NONAFRICAN >60 >=60 02/28/2025 3:07 PM CDT [facility] Blood Venipuncture / Unknown 02/28/2025 2:31 PM CDT 02/28/2025 2:37 PM CDT Karan Floyd PAC CHEMISTRY ORDERABLES Final Result [facility] [address] [place] [address] from Last 3 Months Insurance [place]ICAID [place] Care Teams Inbound Customer Service Representative Relationship Specialty Start Date End Date Provider, None [place] PCP - General 06/06/24
--- OUTSIDE RECORDS SUMMARY | 2025-05-05 15:43 | XMS_ITS | Encounter Summary ---
Author Organization [facility] Address [address] [facility] [place] [address] Phone Care Team Providers Care Sprue Knocker Name Role Phone Donaldo Gamboa MD Primary Care Provider [phone] Provider, None Primary Care Provider Unavailabl e Reason for Visit * Reason Comments Medication Refill Encounter Details Date Type Department Care Team (Late st Contact Info) Description 12/04/2021 Refill [facility] - [place] [address] [place] [address] Edward Yepez APRN, DEPOSITION REPORTER [address] [address] Medication Refill Social History Tobacco Use Types [...] Telephone Encounter - Uzma Deluca RN - 12/05/2021 8:25 AM CST Medication failed the protocol, provider to review and approve the medication order if appropriate. Requested Prescriptions Pending Prescriptions Disp Refills diclofenac (VOLTAREN) 75 MG Tablet Delayed Response [Pharmacy Med Name: DICLOFENAC SODIUM 75MG DR TABLETS] 60 Tablet 5 Sig: TAKE 1 TABLET BY MOUTH TWICE DAILY NSAIDs Protocol Failed - 12/04/2021 12:46 PM Failed - Normal serum creatinine in [...] Type Provider Dept 06/07/21 Office Visit Edward Yepez APRN, DEPOSITION REPORTER [facility] [place] Showing recent visits within past 365 days and meeting all other requirements Future Appointments No visits were found meeting these conditions. Showing future appointments within next 90 days and meeting all other requirements Passed - No matching NSAID med order in past 45 days No matching medication orders between 10/21/2021 8:25 AM and 12/05/2021 8:25 AM OL ATTENDANCE SECRETARY documented in this encounter Plan of Treatment Not on file documented as of this encounter Visit Diagnoses Diagnosis Primary osteoarthritis of both knees Primary localized osteoarthrosis, lower leg documented in this encounter Additional Health Concerns Assessment Noted Time PHQ-9 Depression Total Score: 0 11/16/20 20 10:44 AM SCHOOL ATTENDANCE SECRETARY documented as of this encounter Care Teams Sprue Knocker Relationship Specialty Start Date End Date Donaldo Gamboa MD [address] [address] PCP - General Family Medicine 12/06/17 02/01/24 Provider, None [place] PCP - General 06/06/24 documented as of this encounter
--- OUTSIDE RECORDS SUMMARY | 2025-05-05 15:43 | XMS_ITS | Encounter Summary ---
Author Organization [facility] Address [address] [facility] [place] [address] Phone Care Team Providers Care Learning Specialist Name Role Phone Donaldo Gamboa MD Primary Care Provider [phone] Provider, None Primary Care Provider Unavailabl e Reason for Visit * Reason Comments Medication Refill Encounter Details Date Type Department Care Team (Late st Contact Info) Description 11/26/2023 Refill [facility] [address] [place] [address] Donaldo Gamboa MD #[address] [address] Medication Refill Social History Tobacco Use Types [...] Telephone Encounter - Emilee Llamas RN - 11/26/2023 12:30 PM CUSTOMER SERVICE SECURITY OFFICER Medication failed the protocol, provider to review and approve the medication order if appropriate. Requested Prescriptions Pending Prescriptions Disp Refills diclofenac (VOLTAREN) 75 MG Tablet Delayed Response [Pharmacy Med Name: DICLOFENAC SODIUM 75[address] DR TABLETS] 60 Tablet 0 Sig: TAKE 1 TABLET BY MOUTH TWICE DAILY NSAIDs Protocol Failed - 11/26/2023 10:00 AM Failed - Normal serum creatinine in past 12 months No results found for: CREATININE Failed - No matching NSAID med order in past 45 days Matching medication order placed on 10/29/2023 5:47 PM Order [id number]: diclofenac (VOLTAREN) 75 MG Tablet Delayed Response (For orders placed between 10/12/2023 12:30 PM and 11/26/2023 12:30 PM) Failed - AST less than 55 [...] 90 days and meeting all other requirements OMER SERVICE SECURITY OFFICER documented in this encounter Plan of Treatment Not on file documented as of this encounter Visit Diagnoses Diagnosis Chronic joint pain Pain in joint, site unspecified documented in this encounter Additional Health Concerns Assessment Noted Time PHQ-9 Depression Total Score: 0 11/16/20 20 10:44 AM CUSTOMER SERVICE SECURITY OFFICER documented as of this encounter Care Teams Learning Specialist Relationship Specialty Start Date End Date Donaldo Gamboa MD [address] [address] PCP - General Family Medicine 12/06/17 02/01/24 Provider, None [place] PCP - General 06/06/24 documented as of this encounter
--- OUTSIDE RECORDS SUMMARY | 2025-05-05 15:43 | XMS_ITS | Encounter Summary ---
Author Organization [facility] Address [address] [facility] [place] [address] Phone Care Team Providers Care Hospital Cleaner Name Role Phone Donaldo Gamboa MD Primary Care Provider [phone] Provider, None Primary Care Provider Unavailabl e Reason for Visit * Reason Comments Medication Refill Encounter Details Date Type Department Care Team (Late st Contact Info) Description 10/28/2023 Refill [facility] [address] [place] [address] Donaldo Gamboa MD #[address] [address] Medication Refill Social History Tobacco Use Types [...] Telephone Encounter - Uzma Deluca RN - 10/29/2023 9:36 AM CST Medication failed the protocol, provider to review and approve the medication order if appropriate. Requested Prescriptions Pending Prescriptions Disp Refills diclofenac (VOLTAREN) 75 MG Tablet Delayed Response [Pharmacy Med Name: DICLOFENAC SODIUM [address] TABLETS] 60 Tablet 0 Sig: TAKE 1 TABLET BY MOUTH TWICE DAILY NSAIDs Protocol Failed - 10/28/2023 8:08 PM Failed - Normal serum creatinine in past 12 months No results found for: CREATININE Failed - No matching NSAID med order in past 45 days Matching medication order placed on 10/02/2023 7:20 AM Order [id number]: diclofenac (VOLTAREN) 75 MG Tablet Delayed Response (For orders placed between 09/14/2023 9:36 AM and 10/29/2023 9:36 AM) Failed - AST less than 55 or [...] Dept 09/02/23 Office Visit Donaldo Gamboa MD [facility] 11/05/22 Office Visit Edward Yepez APRN, CONDOMINIUM ASSOCIATION MANAGER [facility] Show[facility] recent visits within past 365 days and meeting all other requirements Future Appointments Date Type Provider Dept 12/04/23 Appointment Donaldo Gamboa MD [facility] Showing future appointments within next 90 days and meeting all other requirements RAISING DIRECTOR documented in this encounter Plan of Treatment Not on file documented as of this encounter Visit Diagnoses Diagnosis Chronic joint pain Pain in joint, site unspecified documented in this encounter Additional Health Concerns Assessment Noted Time PHQ-9 Depression Total Score: 0 11/16/20 20 10:44 AM FUNDRAISING DIRECTOR documented as of this encounter Care Teams Hospital Cleaner Relationship Specialty Start Date End Date Donaldo Gamboa MD [address] [place] [address] PCP - General Family Medicine 12/06/17 02/01/24 Provider, None [place] PCP - General 06/06/24 documented as of this encounter
--- OUTSIDE RECORDS SUMMARY | 2025-05-05 15:43 | XMS_ITS | Encounter Summary ---
Author Organization [facility] Address [address] [facility] [place] [address] Phone Care Team Providers Care Lock Master Name Role Phone Donaldo Gamboa MD Primary Care Provider [phone] Provider, None Primary Care Provider Unavailabl e Reason for Visit * Reason Comments Medication Refill Encounter Details Date Type Department Care Team (Late st Contact Info) Description 03/04/2022 Refill [facility] - [place] [address] [place] [address] Donaldo Gamboa MD #[address] [address] Medication Refill Social History Tobacco Use Types [...] encounter Miscellaneous Notes * Telephone Encounter - Dayami Pringle RN - 03/04/2022 1:41 PM CDT Refill given documented in this encounter Plan of Treatment Not on file documented as of this encounter Visit Diagnoses Diagnosis Mild intermittent asthma without complication Unspecified asthma documented in this encounter Additional Health Concerns Assessment Noted Time PHQ-9 Depression Total Score: 0 11/16/20 10:44 AM EVP HEAD [employer]IENCE [employer]ATEGY documented as of this encounter Care Teams Lock Master Relationship Specialty Start Date End Date Donaldo Gamboa MD #[address] [address] PCP - General Family Medicine 12/06/17 02/01/24 Provider, None [place] PCP - General 06/06/24 documented as of this encounter
--- OUTSIDE RECORDS SUMMARY | 2025-05-05 15:43 | XMS_ITS | Encounter Summary ---
Author Organization [facility] Address [address] [facility] [place] [address] Phone Care Team Providers Care Window Repairer Name Role Phone Donaldo Gamboa MD Primary Care Provider [phone] Provider, None Primary Care Provider Unavailabl e Reason for Visit * Reason Comments Medication Refill Encounter Details Date Type Department Care Team (Late st Contact Info) Description 09/29/2023 Refill [facility] [address] [place] [address] Donaldo Gamboa MD #[address] [address] Medication Refill Social History Tobacco Use Types [...] Telephone Encounter - Uzma Deluca RN - 10/02/2023 9:13 AM CDT Name from pharmacy: DICLOFENAC SODIUM [address] TABLETS Will file in chart as: diclofenac (VOLTAREN) 75 MG Tablet Delayed Response The original prescription was reordered on 10/02/2023 by Donaldo Gamboa MD. * Telephone Encounter - Uzma Deluca RN - 09/29/2023 5:23 PM CDT duplicate documented in this encounter Plan of Treatment Not on file documented as of this encounter Visit Diagnoses Diagnosis Chronic joint pain Pain in joint, site unspecified documented in this encounter Additional Health Concerns Assessment Noted Time PHQ-9 Depression Total Score: 0 11/16/20 20 10:44 AM RESUME SPECIALIST documented as of this encounter Care Teams Window Repairer Relationship Specialty Start Date End Date Donaldo Gamboa MD #[address] [address] PCP - General Family Medicine 12/06/17 02/01/24 Provider, None [place] PCP - General 06/06/24 documented as of this encounter
--- OUTSIDE RECORDS SUMMARY | 2025-05-05 15:43 | XMS_ITS | Encounter Summary ---
Author Organization [facility] Address [address] [facility] [place] [address] Phone Care Team Providers Care Floor Care Specialist Name Role Phone Donaldo Gamboa MD Primary Care Provider [phone] Provider, None Primary Care Provider Unavailabl e Reason for Visit * Reason Comments Medication Refill Encounter Details Date Type Department Care Team (Late st Contact Info) Description 12/28/2023 [facility]ill [facility] - [place] #2 [place] [address] Donaldo Gamboa MD [address] [address] Medication Refill Social History Tobacco Use Types [...] Miscellaneous Notes * Telephone Encounter - Emilee Llmaas RN - 12/28/2023 11:36 AM EMPLOYEE RELATION MANAGER PRN medication Per nursing clinical judgement, provider to review and approve the medication(s) order(s) if appropriate. Requested Prescriptions Pending Prescriptions Disp Refills albuterol 108 (90 Base) MCG/ACT Aerosol Solution [Pharmacy Med Name: ALBUTEROL HFA INH (200 PUFFS) 8.5GM] 8.5 g Sig: INHALE 2 PUFFS BY MOUTH EVERY 4 HOURS NEEDED FOR WHEEZING OR COUGH Short Acting Inhaled Beta-Agonists Protocol Passed - 12/28/2023 11:35 AM Passed - Visit with relevant provider in past 12 months or upcoming 90 days Recent Visits Date Type Provider Dept 12/18/23 Telemedicine Donaldo Gamboa MD [facility] 09/02/23 Office Visit Donaldo Gamboa MD [facility] Showing recent visits within past 365 days and meeting all other requirements Future Appointments Date Type Provider Dept 01/13/24 Appointment Edward Yepez APRN, PARA OPERATOR [facility] [place] Showing future appointments within next 90 days and meeting all other requirements OYEE RELATION MANAGER documented in this encounter Plan of Treatment Not on file documented as of this encounter Visit Diagnoses Diagnosis Mild intermittent asthma without complication Unspecified asthma documented in this encounter Additional Health Concerns Assessment Noted Time PHQ-9 Depression Total Score: 0 11/16/20 20 10:44 AM EMPLOYEE RELATION MANAGER documented as of this encounter Care Teams Floor Care Specialist Relationship Specialty Start Date End Date Donaldo Gamboa MD #[address] [address] PCP - General Family Medicine 12/06/17 02/01/24 Provider, None [place] PCP - General 06/06/24 documented as of this encounter
--- OUTSIDE RECORDS SUMMARY | 2025-05-05 15:43 | XMS_ITS | Encounter Summary ---
Author Organization [facility] Address [address] [facility] [place] [address] Phone Care Team Providers Care Manager Spa Name Role Phone Donaldo Gamboa MD Primary Care Provider [phone] Provider, None Primary Care Provider Unavailabl e Reason for Visit * Reason Onset Date Comments Medication Refill 01/04/2022 Encounter Details Date Type Department Care Team (Late st Contact Info) Description 01/04/2022 Refill [facility] - [place] #2 [place] [address] Donaldo Gamboa MD #[address] [address] Medication Refill Social History Tobacco Use Types [...] Telephone Encounter - Uzma Deluca RN - 01/04/2022 3:07 PM CST PRN medication requires review from provider Per nursing clinical judgement, provider to review and approve the medication(s) order(s) if appropriate. Requested Prescriptions Pending Prescriptions Disp Refills albuterol (Ventolin HFA) 108 (90 Base) MCG/ACT Aerosol Solution 18 g 1 Sig: take 2 Puffs by inhalation every 4 hours as needed for Wheezing. Short Acting Inhaled Beta-Agonists Protocol Passed - 01/04/2022 2:22 PM Passed - Visit with relevant provider in past 12 months or upcoming 90 days Recent Visits Date Type Provider Dept 06/07/21 Office Visit Edward Yepez, CRIMINOLOGY PROFESSOR, AIRCRAFT MAINTENANCE ENGINEER [facility] [place] Showing recent visits within past 365 days and meeting all other requirements Future Appointments No visits were found meeting these conditions. Showing future appointments within next 90 days and meeting all other requirements RGROUND DRILL OPERATOR * Telephone Encounter - Kiley Fan - 01/04/2022 2:22 PM CST Received a faxed Rx request from pharmacy. Reordered refill medication(s) requested and pended for nurse and physician/HILDA review. Refill encounter routed to nurse Clarkrimichael's pool for processing. RGROUND DRILL OPERATOR documented in this encounter Plan of Treatment Not on file documented as of this encounter Visit Diagnoses Diagnosis Mild intermittent asthma without complication Unspecified asthma documented in this encounter Additional Health Concerns Assessment Noted Time PHQ-9 Depression Total Score: 0 11/16/20 20 10:44 AM UNDERGROUND DRILL OPERATOR documented as of this encounter Care Teams Manager Spa Relationship Specialty Start Date End Date Donaldo Gamboa MD #[address] [address] PCP - General Family Medicine 12/06/17 02/01/24 Provider, None [place] PCP - General 06/06/24 documented as of this encounter
--- OUTSIDE RECORDS SUMMARY | 2025-05-05 15:43 | XMS_ITS | Encounter Summary ---
Author Organization [facility] Address [address] [facility] [place] [place] [address] Phone Care Team Providers Care Brick Dropper Name Role Phone Donaldo Gamboa MD Primary Care Provider [phone] Provider, None Primary Care Provider Unavailabl e Reason for Visit * Reason Comments Medication Refill Encounter Details Date Type Department Care Team (Late st Contact Info) Description 12/25/2022 Refill [facility] - [place] #2 [place] [address] Edward Yepez APRN, [place] #[address] [address] Medication Refill Social History Tobacco Use Types [...] encounter Miscellaneous Notes * Telephone Encounter - Nora Carlos RN - 12/25/2022 10:12 AM CST Medication failed the protocol, provider to review and approve the medication order if appropriate. Requested Prescriptions Pending Prescriptions Disp Refills diclofenac (VOLTAREN) 75 MG Tablet Delayed Response [Pharmacy Med Name: DICLOFENAC SODIUM 75MG DR TABLETS] 60 Tablet 5 Sig: TAKE 1 TABLET BY MOUTH TWICE DAILY NSAIDs Protocol Failed - 12/25/2022 9:46 AM Failed - Normal serum creatinine in [...] CNP [facility] 10/16/22 Office Visit Donaldo Gamboa MD [facility] [place] 07/03/22 Office Visit Edward Yepez APRN, CNP [facility] Showing recent visits within past 365 days and meeting all other requirements Future Appointments Date Type Provider Dept 01/15/23 Appointment Edward Yepez APRN, CNP [facility] Showing future appointments within next 90 days and meeting all other requirements Passed - No matching NSAID med order in past 45 days No matching medication orders between 11/10/2022 10:12 AM and 12/25/2022 10:12 AM ANICAL SYSTEM TECHNICIAN documented in this encounter Plan of Treatment Not on file documented as of this encounter Visit Diagnoses Diagnosis Chronic joint pain Pain in joint, site unspecified documented in this encounter Additional Health Concerns Assessment Noted Time PHQ-9 Depression Total Score: 0 11/16/20 10:44 AM MECHANICAL SYSTEM TECHNICIAN documented as of this encounter Care Teams Brick Dropper Relationship Specialty Start Date End Date Donaldo Gamboa MD #[address] [address] PCP - General Family Medicine 12/06/17 02/01/24 Provider, Petra DEVRIES PCP - General 06/06/24 documented as of this encounter
--- OUTSIDE RECORDS SUMMARY | 2025-05-05 15:43 | XMS_ITS | Clinical Summary ---
Author Organization [facility] Address [address] [place] [address] Care Team Providers Care Chief Medical Technologist Name Role Phone Adelina Nicoel RN Dayami Guardado NP Primary Care Provider [phone] Allergies No known active allergies Medications traMADoL [...] right tibial plateau with routine healing 05/22/201707/2025 Encounters Date Type Department Care Team Description 05/04/2025 1:55 PM CDT - 05/04/2025 11:59 PM CDT Hospital Encounter [facility] [address] [place] [address] A, Abraham. [address] [place] [address] Helga Keyes NP Localized osteoarthritis of knees, bilateral; Primary osteoarthritis involving multiple joints Discharge Disposition: Discharge to home or self care 04/07/2025 8:00 AM CDT Office Visit [facility] Primary Care at [address] [address] Dayami Olmstead NP BMI 39.0-39.9,adult (Primary Dx); Attention deficit hyperactivity disorder (ADHD), predominantly inattentive type; Vitamin D deficiency; Mild intermittent asthma without complication; Wellness examination; Prostate cancer screening; Thyroid disorder screening; Lipid screening; Screening for deficiency anemia; Localized osteoarthritis of knees, bilateral; Primary osteoarthritis involving multiple joints; Encounter for colorectal cancer screening using Cologuard test from Last 3 Months Immunizations Immunization Administration Dates Next Due Influenza, Trivalent, IM (MDV) 08/25/2020 Tdap 07/12/2021 Surgical History Surgery Date Site/Laterality Comments KNEE SURGERY Left x 3 scopes TONSILLECTOMY Medical History Medical History Date Comments Hx Other Medical 3 knee scope on e in 1999, left Asthma Arthritis ADHD (attention deficit hyperactivity disorder) Family History Medical History Relation Name Comments killed at work 28 years old Father No Known Problems Mother Relation Name Status Comments Father Mother Alive Social History Tobacco Use Types Packs/Day Years [...] on file Sexual Orientation Not on file Obstetrics History Last Filed Vital Signs Vital Sign Reading [...] 04/07/2025 7:56 AM CDT Plan of Treatment Health Maintenance Due Date Last Done Comments Colon Cancer Screening-Colonoscopy 1976 Influenza Vaccine (Season Ended) 2025 08/25/2020 Pneumococcal vaccine <65 (1 of 2 - PCV) 03/23/2026 Postponed from 1995 (Patient declined, but will receive in the future) Regular Well Visit/Exam 18-64 04/07/2026 04/07/2025 Depression Screening 05/04/2026 05/04/2025, 04/07/2025, 01/07/2018, Additional history exists DTaP/Tdap/Td Vaccine (2 - Td or Tdap) 07/12/2031 07/12/2021 Hepatitis B Screening Discontinued Hepatitis C Screening Discontinued Goals Goal Patient Goal Type Associated Problems Recent Progress Patient-Stated? Author [facility] On track( 018 10:31 AM CDT) Adelina Carpenter, RN Note: Patient will describe how unrelieved pain will be managed. Insurance [facility] Care Teams Chief Medical Technologist Relationship Specialty Start Date End Date Dayami Olmstead NP [address] [facility] [address] [place] [address] PCP - General Internal Medicine 04/07/25 Adelina Nicole, RN Registered Nurse 01/07/18
== END 2025-05-05 16:30 | disposition home or self-care (01) ==
DX: S61.216A Laceration without foreign body of right little finger without damage to nail, initial encounter (principal); F17.210 Nicotine dependence, cigarettes, uncomplicated; W26.8XXA Contact with other sharp object(s), not elsewhere classified, initial encounter; Z23 Encounter for immunization
CPT/HCPCS: 12001; 73140; 90471; 90715; 99213; G0463; J2003

== ENCOUNTER 2025-06-15 13:14 | Emergency (ER) | payer OTHER, SELFPAY ==
--- NOTE | ~2025-06-15 | XR_ITS ---
XR finger 5th RT min 2V 06/15/2025 13:44 Indication: Possible foreign body Procedure: 4 views right fifth finger Comparison: 05/05/2025 Findings: There is polyarticular osteoarthritis. No fracture or traumatic malalignment. No foreign iona dies identified. Mild soft tissue swelling. Impression: 1: No acute bone or joint abnormality. Mild soft tissue swelling. No foreign body. Reviewed, dictated and finalized at location B. Impression: 1: No acute bone or joint abnormality. Mild soft tissue swelling. No foreign iona dy.
--- OUTSIDE RECORDS SUMMARY | 2025-06-15 13:16 | XMS_ITS | Encounter Summary ---
Author Organization [facility] Address [address] [facility] [place] [place] [address] Phone Care Team Providers Care Freight Separator Name Role Phone Donaldo Gamboa MD Primary Care Provider [phone] Provider, None Primary Care Provider Unavailabl e Reason for Visit * Reason Comments Medication Refill Encounter Details Date Type Department Care Team (Late st Contact Info) Description 12/28/2023 Refill [facility] - [place] #2 [place] [address] Donaldo Gamboa MD #[address] [address] Medication Refill Social History Tobacco Use Types [...] Encounter - Emilee Llamas RN - 12/28/2023 11:36 AM MEDICAL RECORDS ASSISTANT PRN medication Per nursing clinical judgement, provider [...] Provider Dept 01/13/24 Appointment Edward Yepez APRN, DIRECTOR OF PHYSIOTHERAPY SERVICES [facility] [place] Showing future appointments within next 90 days and meeting all other requirements CAL RECORDS ASSISTANT documented in this encounter Plan of Treatment Not on file documented as of this encounter Visit Diagnoses Diagnosis Mild intermittent asthma without complication Unspecified asthma documented in this encounter Additional Health Concerns Assessment Noted Time PHQ-9 Depression Total Score: 0 11/16/20 20 10:44 AM MEDICAL RECORDS ASSISTANT documented as of this encounter Care Teams Freight Separator Relationship Specialty Start Date End Date Donaldo Gamboa MD #[address] [address] PCP - General Family Medicine 12/06/17 02/01/24 Provider, None [place] PCP - General 06/06/24 documented as of this encounter
--- OUTSIDE RECORDS SUMMARY | 2025-06-15 13:17 | XMS_ITS | Encounter Summary ---
Author Organization [facility] Address [address] [facility] [place] [address] Phone Care Team Providers Care Gamewell Operator Name Role Phone Donaldo Gamboa MD Primary Care Provider [phone] Provider, None Primary Care Provider Unavailabl e Reason for Visit * Reason Comments Medication Refill Encounter Details Date Type Department Care Team (Late st Contact Info) Description 07/30/2023 Refill [facility] #2 [place] [address] Donaldo Gamboa MD #[address] [address] Medication Refill Social History Tobacco Use Types [...] order placed on 06/30/2023 1:49 PM Order [id number]: diclofenac (VOLTAREN) 75 MG Tablet Delayed Response [...] 11/05/22 Office Visit Edward Yepez APRN, ALVARO [facility] [place] 10/16/22 Office Visit Donaldo Gamboa MD [facility] Showing recent visits within past 365 [...] Total Score: 0 11/16/20 20 10:44 AM JET PILOT documented as of this encounter Care Teams Gamewell Operator Relationship Specialty Start Date End Date Donaldo Gamboa MD #[address] [address] PCP - General Family Medicine 12/06/17 02/01/24 Provider, None [place] PCP - General 06/06/24 documented as of this encounter
--- OUTSIDE RECORDS SUMMARY | 2025-06-15 13:17 | XMS_ITS | Encounter Summary ---
Author Organization [facility] Address [address] [facility] [place] [address] Phone Care Team Providers Care Sash Installer Name Role Phone Donaldo Gamboa MD Primary Care Provider [phone] Provider, None Primary Care Provider Unavailabl e Reason for Visit * Reason Comments Medication Refill Encounter Details Date Type Department Care Team (Late st Contact Info) Description 12/25/2022 Refill [facility] - [place] #2 [place] [address] Edward Yepez APRN, COMMUNITY REINVESTMENT ACT OFFICER #[address] [address] Medication Refill Social History Tobacco Use Types [...] Lisa 10/16/22 Office Visit Donaldo Gamboa MD [facility] [place] 07/03/22 Office Visit Edward Yepez [...] 11/10/2022 10:12 AM and 12/25/2022 10:12 AM DIRECTOR documented in this encounter Plan of Treatment Not on file documented as of this encounter Visit Diagnoses Diagnosis Chronic joint pain Pain in joint, site unspecified documented in this encounter Additional Health Concerns Assessment Noted Time PHQ-9 Depression Total Score: 0 11/16/20 10:44 AM CITY DIRECTOR documented as of this encounter Care Teams Sash Installer Relationship Specialty Start Date End Date Donaldo Gamboa MD #[address] [address] PCP - General Family Medicine 12/06/17 02/01/24 Provider, Petra DEVRIES PCP - General 06/06/24 documented as of this encounter
--- OUTSIDE RECORDS SUMMARY | 2025-06-15 13:17 | XMS_ITS | Encounter Summary ---
Author Organization [facility] Address [address] [facility] [place] [address] Phone Care Team Providers Care Bolt Cutter Name Role Phone Marleny Crockett MD Primary Care Provider [phone] Provider, None Primary Care Provider Unavailabl e Reason for Visit * Reason Comments Medication Refill Encounter Details Date Type Department Care Team (Late st Contact Info) Description 06/30/2023 Refill [facility] - [place] #2 [place] [address] Marleny Crockett MD #[address] [address] Medication Refill Social History Tobacco Use Types [...] want to proceed? * Telephone Encounter - zUma Deluca RN - 06/30/2023 12:10 PM CDT PDMP [place] 05/31/23 Medication failed the protocol, provider to [...] APRN, CNP [facility] 10/16/22 Office Visit Marleny Crockett MD [facility] 07/03/22 Office Visit Edward Yepez APRN, CNP [facility] [place] Showing recent [...] 05/27/2023 20 MG 60 0 30 , MARLENY CROCKETT M.D.[place] Next fill date 07/13/23 - refill [...] Total Score: 0 11/16/20 20 10:44 AM FUNERAL SERVICE LICENSEE documented as of this encounter Care Teams Bolt Cutter Relationship Specialty Start Date End Date Marleny Crockett MD #[address] [address] PCP - General Family Medicine 12/06/17 02/01/24 Provider, None [place] PCP - General 06/06/24 documented as of this encounter
--- OUTSIDE RECORDS SUMMARY | 2025-06-15 13:17 | XMS_ITS | Clinical Summary ---
Author Organization [facility] Building [facility] Address [address] [place] [address] Care Team Providers Care Pipe Machine Operator Name Role Phone Adelina Nicole RN Dayami Guardado NP Primary Care Provider [phone] Allergies No known active allergies Medications traMADoL (ULTRAM) 50 mg tabletIndications: Localized osteoarthritis of knees, bilateral,Primary osteoarthritis involving multiple joints Take 1 tablet (50 mg total) by mouth every 8 (eight) hours as needed for pain 90 tablet 5 5 Active celecoxib (CeleBREX) 200 mg capsuleIndications :Osteoarthritis Take 1 capsule (200 mg total) by mouth 2 (two) times a day 60 capsule 3 5 Active diclofenac sodium (VOLTAREN) 1 % gelIndications:Ost eoarthritis Apply 4 g topically 4 (four) times a day 450 g 11 5 Active albuterol HFA (PROVENTIL HFA,VENTOLIN HFA,PROAIR HFA) 90 mcg/actuation inhalerIndications :Mild intermittent asthma without complication Inhale 2 puffs every 4 (four) hours as needed for wheezing 3 each 3 5 Active Active Problems Problem Noted Date Diagnosed [...] - 05/04/2025 11:59 PM CDT Hospital Encounter [facility] [address] [place] [address], [address] [address] Helga Keyes NP Localized osteoarthritis of knees, bilateral; Primary osteoarthritis involving multiple joints Discharge Disposition: Discharge to home or self care 04/07/2025 8:00 AM CDT Office Visit [facility] Primary Care at [address] [address] Dayami Olmstead NP BMI 39.0-39.9,adult [...] Date Smoking Tobacco: Every Day Cigarettes 1 33.5 Started: 1991 Passive Smoke Exposure: Current Smokeless [...] Comments Colon Cancer Screening-Colonoscopy 1976 Influenza Vaccine (#1) 2025 08/25/2020 Pneumococcal vaccine <65 (1 of [...] how unrelieved pain will be managed. Insurance [facility] Care Teams Pipe Machine Operator Relationship Specialty Start Date End Date Dayami Olmstead NP [address] [facility] [address] [place] [address] PCP - General Internal Medicine 04/07/25 Adelina Nicole, RN Registered Nurse 01/07/18
--- OUTSIDE RECORDS SUMMARY | 2025-06-15 13:17 | XMS_ITS | Encounter Summary ---
Author Organization [facility] Address [address] [facility] [place] [address] Phone Care Team Providers Care Machine Operator Replanter Name Role Phone Donaldo Gamboa MD Primary Care Provider [phone] Provider, None Primary Care Provider Unavailabl e Reason for Visit * Reason Comments Medication Refill Encounter Details Date Type Department Care Team (Late st Contact Info) Description 12/28/2023 Refill [facility] #2 [place] [address] Donaldo Gamboa MD #[address] [address] Medication Refill Social History Tobacco Use Types [...] reordered on 12/28/2023 by Donaldo Gamboa MD. E RECRUITER * Telephone Encounter - Emilee Llamas RN - 12/28/2023 11:35 AM TRADE RECRUITER duplicate E RECRUITER documented in this encounter Plan of Treatment Not on file documented as of this encounter Visit Diagnoses Diagnosis Chronic joint pain Pain in joint, site unspecified documented in this encounter Additional Health Concerns Assessment Noted Time PHQ-9 Depression Total Score: 0 11/16/20 10:44 AM TRADE RECRUITER documented as of this encounter Care Teams Machine Operator Replanter Relationship Specialty Start Date End Date Donaldo Gamboa MD #[address] [address] PCP - General Family Medicine 12/06/17 02/01/24 Provider, None [place] PCP - General 06/06/24 documented as of this encounter
--- OUTSIDE RECORDS SUMMARY | 2025-06-15 13:17 | XMS_ITS | Encounter Summary ---
Author Organization [facility] Address [address] [facility] [place] [address] Phone Care Team Providers Care Picker / Packer Name Role Phone Donaldo Gamboa MD Primary Care Provider [phone] Provider, None Primary Care Provider Unavailabl e Reason for Visit * Reason Comments Medication Refill Encounter Details Date Type Department Care Team (Late st Contact Info) Description 10/05/2021 Refill [facility] #2 [place] [address] Donaldo Gamboa MD #[address] [address] Medication Refill Social History Tobacco Use Types [...] Total Score: 0 11/16/20 20 10:44 AM FRONT LINE LEADER documented as of this encounter Care Teams Picker / Packer Relationship Specialty Start Date End Date Donaldo Gabmoa MD #[address] [address] PCP - General Family Medicine 12/06/17 02/01/24 Provider, None [place] PCP - General 06/06/24 documented as of this encounter
--- OUTSIDE RECORDS SUMMARY | 2025-06-15 13:17 | XMS_ITS | Encounter Summary ---
Author Organization [facility] Address [address] [facility] [place] [address] Phone Care Team Providers Care Waste Machine Offbearer Name Role Phone Donaldo Gamboa MD Primary Care Provider [phone] Provider, None Primary Care Provider Unavailabl e Reason for Visit * Reason Comments Medication Refill Encounter Details Date Type Department Care Team (Late st Contact Info) Description 09/29/2023 Refill [facility] #2 [place] [address] Donaldo Gamboa MD #[address] [address] Medication Refill Social History Tobacco Use Types [...] order placed on 08/28/2023 1:51 PM Order [id number]: diclofenac (VOLTAREN) 75 MG Tablet Delayed Response [...] Depression Total Score: 0 11/16/20 10:44 AM DROP HAMMER MECHANIC documented as of this encounter Care Teams Waste Machine Offbearer Relationship Specialty Start Date End Date Donaldo Gamboa MD #[address] [address] PCP - General Family Medicine 12/06/17 02/01/24 Provider, None [place] PCP - General 06/06/24 documented as of this encounter
--- OUTSIDE RECORDS SUMMARY | 2025-06-15 13:17 | XMS_ITS | Encounter Summary ---
Author Organization [facility] Address [address] [facility] [place] [address] Phone Care Team Providers Care Field Broomer Name Role Phone Donaldo Gamboa MD Primary Care Provider +1 -[phone] Provider, None Primary Care Provider Unavailabl e Reason for Visit * Reason Comments Medication Refill Encounter Details Date Type Department Care Team (Late st Contact Info) Description 11/26/2023 Refill [facility] #2 [place] [address] Donaldo Gamboa MD #[address] [address] Medication Refill Social History Tobacco Use Types [...] Emilee Llamas RN - 11/26/2023 12:30 PM FUR PLUCKER Medication failed the protocol, provider to review [...] order placed on 10/29/2023 5:47 PM Order [id number]: diclofenac (VOLTAREN) 75 MG Tablet Delayed Response [...] 90 days and meeting all other requirements PLUCKER documented in this encounter Plan of Treatment Not on file documented as of this encounter Visit Diagnoses Diagnosis Chronic joint pain Pain in joint, site unspecified documented in this encounter Additional Health Concerns Assessment Noted Time PHQ-9 Depression Total Score: 0 11/16/20 20 10:44 AM FUR PLUCKER documented as of this encounter Care Teams Field Broomer Relationship Specialty Start Date End Date Donaldo Gamboa MD #[address] [address] PCP - General Family Medicine 12/06/17 02/01/24 Provider, None [place] PCP - General 06/06/24 documented as of this encounter
--- OUTSIDE RECORDS SUMMARY | 2025-06-15 13:17 | XMS_ITS | Encounter Summary ---
Author Organization [facility] Address [address] [facility] [place] [address] Phone Care Team Providers Care Slabbing Machine Operator Name Role Phone Donaldo Gamboa MD Primary Care Provider +1 [phone] Provider, None Primary Care Provider Unavailabl e Reason for Visit * Reason Comments Medication Refill Encounter Details Date Type Department Care Team (Late st Contact Info) Description 10/28/2023 Refill [facility] #2 [place] [address] Donaldo Gamboa MD #[address] [address] Medication Refill Social History Tobacco Use Types [...] order placed on 10/02/2023 7:20 AM Order [id number]: diclofenac (VOLTAREN) 75 MG Tablet Delayed Response [...] Dept 09/02/23 Office Visit Donaldo Gamboa MD [facility] 11/05/22 Office Visit [facility] APRN[facility] POLL CL[facility] Show[facility] recent visits within past 365 days and meeting all other requirements Future Appointments Date Type Provider Dept 12/04/23 Appointment Donadlo Gamboa MD [facility] Showing future appointments within next 90 days and meeting all other requirements RESSED GAS TESTER documented in this encounter Plan of Treatment Not on file documented as of this encounter Visit Diagnoses Diagnosis Chronic joint pain Pain in joint, site unspecified documented in this encounter Additional Health Concerns Assessment Noted Time PHQ-9 Depression Total Score: 0 11/16/20 20 10:44 AM COMPRESSED GAS TESTER documented as of this encounter Care Teams Slabbing Machine Operator Relationship Specialty Start Date End Date Donaldo Gamboa MD [address] [place] [address] PCP - General Family Medicine 12/06/17 02/01/24 Provider, None [place] PCP - General 06/06/24 documented as of this encounter
--- OUTSIDE RECORDS SUMMARY | 2025-06-15 13:17 | XMS_ITS | Encounter Summary ---
Author Organization [facility] Address [address] [facility] [place] [place] [address] Phone Care Team Providers Care Oyster Floater Name Role Phone Donaldo Gamboa MD Primary Care Provider +1 [phone] Provider, None Primary Care Provider Unavailabl e Reason for Visit * Reason Comments Medication Refill Encounter Details Date Type Department Care Team (Late st Contact Info) Description 04/30/2023 Refill [facility] - [place] #2 [place] [address] Edward Yepez APRN, RN ADMISSION #[address] [address] Medication Refill Social History Tobacco Use Types [...] 11/05/22 Office Visit Edward Yepez APRN, [facility] [place] 10/16/22 Office Visit Donaldo Gamboa MD [facility] 07/03/22 Office Visit Edward Yepez APRN, [facility] [place] Showing recent visits within past 365 [...] Total Score: 0 11/16/20 20 10:44 AM PREVENTION COORDINATOR documented as of this encounter Care Teams Oyster Floater Relationship Specialty Start Date End Date Donaldo Gamboa MD #[address] [address] PCP - General Family Medicine 12/06/17 02/01/24 Provider, None [place] PCP - General 06/06/24 documented as of this encounter
--- OUTSIDE RECORDS SUMMARY | 2025-06-15 13:17 | XMS_ITS | Encounter Summary ---
Author Organization [facility] Address [address] [facility] [place] [address] Phone Care Team Providers Care Paster Hat Lining Name Role Phone Donaldo Gamboa MD Primary Care Provider +1 [phone] Provider, None Primary Care Provider Unavailabl e Reason for Visit * Reason Comments Medication Refill Encounter Details Date Type Department Care Team (Late st Contact Info) Description 12/04/2021 Refill [facility] - [place] #2 [place] [address] Edward Yepez APRN, SUPERVISOR REWORK #[address] [address] Medication Refill Social History Tobacco Use Types [...] Dept 06/07/21 Office Visit Edward Yepez APRN, SUPERVISOR REWORK [facility] [place] Showing recent visits within past 365 days and meeting all other requirements Future Appointments No visits were found meeting these conditions. Showing future appointments within next 90 days and meeting all other requirements Passed - No matching NSAID med order in past 45 days No matching medication orders between 10/21/2021 8:25 AM and 12/05/2021 8:25 AM OSAL WRITER documented in this encounter Plan of Treatment Not on file documented as of this encounter Visit Diagnoses Diagnosis Primary osteoarthritis of both knees Primary localized osteoarthrosis, lower leg documented in this encounter Additional Health Concerns Assessment Noted Time PHQ-9 Depression Total Score: 0 11/16/20 20 10:44 AM PROPOSAL WRITER documented as of this encounter Care Teams Paster Hat Lining Relationship Specialty Start Date End Date Donaldo Gamboa MD #[address] [address] PCP - General Family Medicine 12/06/17 02/01/24 Provider, None [place] PCP - General 06/06/24 documented as of this encounter
--- OUTSIDE RECORDS SUMMARY | 2025-06-15 13:17 | XMS_ITS | Encounter Summary ---
Author Organization [facility] Address [address] [facility] [place] [address] Phone Care Team Providers Care Grout Worker Name Role Phone Donaldo Gamboa MD Primary Care Provider +1 [phone] Provider, None Primary Care Provider Unavailabl e Reason for Visit * Reason Comments Medication Refill Encounter Details Date Type Department Care Team (Late st Contact Info) Description 12/28/2023 Refill [facility] #2 [place] [address] Donaldo Gamboa MD #[address] [address] Medication Refill Social History Tobacco Use Types [...] Emilee Llamas RN - 12/28/2023 9:52 AM PHLEBOTOMY DIRECTOR Medication failed the protocol, provider to review [...] order placed on 11/26/2023 1:50 PM Order [id number]: diclofenac (VOLTAREN) 75 MG Tablet Delayed Response [...] Provider Dept 01/13/24 Appointment Edward Yepez APRN, CHAINSAW MECHANIC [facility] Showing future appointments within next [...] 12/16/2023 44.2 38.0 - 50.0 % Final BOTOMY DIRECTOR documented in this encounter Plan of Treatment Not on file documented as of this encounter Visit Diagnoses Diagnosis Chronic joint pain Pain in joint, site unspecified documented in this encounter Additional Health Concerns Assessment Noted Time PHQ-9 Depression Total Score: 0 11/16/20 20 10:44 AM PHLEBOTOMY DIRECTOR documented as of this encounter Care Teams Grout Worker Relationship Specialty Start Date End Date Donaldo Gamboa MD #[address] [address] PCP - General Family Medicine 12/06/17 02/01/24 Provider, None [place] PCP - General 06/06/24 documented as of this encounter
--- OUTSIDE RECORDS SUMMARY | 2025-06-15 13:17 | XMS_ITS | Encounter Summary ---
Author Organization [facility] Address [address] [place] [address] Phone Care Team Providers Care Sole Stainer Name Role Phone Donaldo Gamboa MD Primary Care Provider +1 [phone] Provider, None Primary Care Provider Unavailabl e Reason for Visit * Reason Onset Date Comments Medication Refill 01/04/2022 Encounter Details Date Type Department Care Team (Late st Contact Info) Description 01/04/2022 Refill [facility] - [place] #2 [place] [address] Donaldo Gamboa MD #[address] [address] Medication Refill Social History Tobacco Use Types [...] Provider Dept 06/07/21 Office Visit Edward Yepez, PAPIER MACHE' MOLDER, VAULT WORKER [facility] [place] Showing recent visits within past 365 days and meeting all other requirements Future Appointments No visits were found meeting these conditions. Showing future appointments within next 90 days and meeting all other requirements DESIGNER * Telephone Encounter - Kiley Fan - 01/04/2022 2:22 PM CST Received a faxed Rx request from pharmacy. Reordered refill medication(s) requested and pended for nurse and physician/HILDA review. Refill encounter routed to nurse Clarkrimichael's pool for processing. DESIGNER documented in this encounter Plan of Treatment Not on file documented as of this encounter Visit Diagnoses Diagnosis Mild intermittent asthma without complication Unspecified asthma documented in this encounter Additional Health Concerns Assessment Noted Time PHQ-9 Depression Total Score: 0 11/16/20 20 10:44 AM JAVA DESIGNER documented as of this encounter Care Teams Sole Stainer Relationship Specialty Start Date End Date Donaldo Gamboa MD #[address] [address] PCP - General Family Medicine 12/06/17 02/01/24 Provider, None [place] PCP - General 06/06/24 documented as of this encounter
--- OUTSIDE RECORDS SUMMARY | 2025-06-15 13:17 | XMS_ITS | Referral Summary ---
Author Organization [facility] Address [address] [place] [address] Care Team Providers Care Netting Inspector Name Role Phone Adelina Nicole RN Dayami Guardado NP Primary Care Provider Encounters Date Type Department Care Team Description 05/04/2025 1:55 PM CDT - 05/04/2025 11:59 PM CDT Hospital Encounter [facility] [address] [facility], [address] [place] [address] Helga Keyes NP Localized osteoarthritis of knees, bilateral; Primary osteoarthritis involving multiple joints Discharge Disposition: Discharge to home or self care 04/07/2025 8:00 AM CDT Office Visit [facility] Primary Care at [address] [address] Dayami Olmstead NP BMI 39.0-39.9,adult [...] of right tibial plateau with routine healing 05/22/2017 0507/2025 Immunizations Immunization Administration Dates Next Due Influenza, [...] how unrelieved pain will be managed. Insurance [facility] Care Teams Netting Inspector Relationship Specialty Start Date End Date Dayami Olmstead NP [address] [facility] [address] [place] [address] PCP - General Internal Medicine 04/07/25 Adelina Nicole, RN Registered Nurse 01/07/18
--- OUTSIDE RECORDS SUMMARY | 2025-06-15 13:17 | XMS_ITS | Encounter Summary ---
Author Organization [facility] Address [address] [facility] [place] [address] Phone Care Team Providers Care Rn Vascular Name Role Phone Donaldo Gamboa MD Primary Care Provider +1 -[phone] Provider, None Primary Care Provider Unavailabl e Reason for Visit * Reason Comments Medication Refill Encounter Details Date Type Department Care Team (Late st Contact Info) Description 07/01/2022 Refill [facility] #2 [place] [address] Donaldo Gamboa MD #[address] [address] Medication Refill Social History Tobacco Use Types [...] Total Score: 0 11/16/20 20 10:44 AM INCLINED RAILWAY OPERATOR documented as of this encounter Care Teams Rn Vascular Relationship Specialty Start Date End Date Donaldo Gamboa MD #[address] [address] PCP - General Family Medicine 12/06/17 02/01/24 Provider, None [place] PCP - General 06/06/24 documented as of this encounter
--- OUTSIDE RECORDS SUMMARY | 2025-06-15 13:17 | XMS_ITS | Encounter Summary ---
Author Organization [facility] Address [address] [facility] [place] [address] Phone Care Team Providers Care Equipment Validation Engineer Name Role Phone Donaldo Gamboa MD Primary Care Provider +1 -[phone] Provider, None Primary Care Provider Unavailabl e Reason for Visit * Reason Comments Medication Refill Encounter Details Date Type Department Care Team (Late st Contact Info) Description 09/29/2023 Refill [facility] Family [facility] #2 [place] [address] Donaldo Gamboa MD #[address] [address] Medication Refill Social History Tobacco Use Types [...] Dept 09/02/23 Office Visit Donaldo Gamboa MD [facility] [place] 11/05/22 Office Visit Edward Yepez APRN, [facility] 10/16/22 Office Visit Donaldo Gamboa MD [facility] Showing recent visits within past 365 days and meeting all other requirements Future Appointments Date Type Provider Dept 12/04/23 Appointment Donaldo Gamoba MD [facility] Showing future appointments within next 90 days and meeting all other requirements documented in this encounter Plan of Treatment Not on file documented as of this encounter Visit Diagnoses Not on filedocumented in this encounter Additional Health Concerns Assessment Noted Time PHQ-9 Depression Total Score: 0 11/16/20 20 10:44 AM FUR POLISHER documented as of this encounter Care Teams Equipment Validation Engineer Relationship Specialty Start Date End Date Donaldo Gamboa MD #[address] [address] PCP - General Family Medicine 12/06/17 02/01/24 Provider, None [place] PCP - General 06/06/24 documented as of this encounter
--- OUTSIDE RECORDS SUMMARY | 2025-06-15 13:17 | XMS_ITS | Clinical Summary ---
Author Organization [facility] Address #[address] [place] [address] Phone Care Team Providers Care Fuel Retrofitting Technician Name Role Phone Provider, None Primary Care [...] intermittent asthma without complication Tobacco abuse 12/25/2017 Immunizations Immunization Administration Dates Next Due Influenza [...] Combined (1 of 2 - PCV) 1995 Cologuard 2021 Colonoscopy 2021 Colorectal Cancer Screening 2021 Immunochemical Fecal Occult Blood 2021 SARS-COV-2 Immunization (1 - 2023- season) 2024 Influenza Immunization (#1) 08/01/202508/02, 08/25/2020 Td Immunization Every 10 Yea rs [...] on patient's age to complete this topic Insurance MEDICAID [place] Care Teams Fuel Retrofitting Technician Relationship Specialty Start Date End Date Provider, None [place] PCP - General 06/06/24
--- OUTSIDE RECORDS SUMMARY | 2025-06-15 13:17 | XMS_ITS | Patient Health Record ---
Author Organization [facility] Address [address] [facility] [address] [place] [address] Care Team Providers Care Lan Engineer Name Role Phone Connor Elliott Unavailable [phone] Reason For Referral No Information Plan Of Treatment No Information
--- OUTSIDE RECORDS SUMMARY | 2025-06-15 13:17 | XMS_ITS | Encounter Summary ---
Author Organization [facility] Address [address] [place] [facility] [place] [address] Phone Care Team Providers Care Technical Analyst Name Role Phone Donaldo Gamboa MD Primary Care Provider +1 -[phone] Provider, None Primary Care Provider Unavailabl e Reason for Visit * Reason Onset Date Comments Medication Management 02/06/2022 Encounter Details Date Type Department Care Team (Late st Contact Info) Description 02/06/2022 Telephone [facility] - Family Medicine - [place] #2 [place] [address] Donaldo Gamboa MD #[address] [address] Medication Management Social History Tobacco Use Types [...] Donaldo Gamboa MD - 02/07/2022 1:48 PM MOTOR VEHICLE CLERK Thanks for the update! R VEHICLE CLERK * Telephone Encounter - Uzma Deluca RN - 02/07/2022 1:09 PM CST Patient has been notified. He appreciates the refill and will try to get into another provider. R VEHICLE CLERK * Telephone Encounter - Donaldo Gamboa MD - 02/06/2022 10:24 PM MOTOR VEHICLE CLERK Let him know I have called in his last refill. Tell him to switch over to an insurance that we takeor find another provider. No more refills after this one. Thanks! R VEHICLE CLERK * Telephone Encounter - Uzma Deluca RN - 02/06/2022 3:30 PM CST Patient can't come in. His insurance is not in our network. He has to find another provider else where that takes his insurance. He wants to know if you are going to prescribe the pain medication. R VEHICLE CLERK * Telephone Encounter - Donaldo Gamboa MD - 02/06/2022 1:31 PM MOTOR VEHICLE CLERK Please help me with this message. Thanks! R VEHICLE CLERK * Telephone Encounter - Lynn Cox - [...] able to get this medication or not. R VEHICLE CLERK documented in this encounter Plan of Treatment Not on file documented as of this encounter Visit Diagnoses Diagnosis Chronic joint pain Pain in joint, site unspecified documented in this encounter Additional Health Concerns Assessment Noted Time PHQ-9 Depression Total Score: 0 11/16/20 20 10:44 AM MOTOR VEHICLE CLERK documented as of this encounter Care Teams Technical Analyst Relationship Specialty Start Date End Date Donaldo Gamboa MD #[address] [address] PCP - General Family Medicine 12/06/17 02/01/24 Provider, None [place] PCP - General 06/06/24 documented as of this encounter
--- OUTSIDE RECORDS SUMMARY | 2025-06-15 13:17 | XMS_ITS | Encounter Summary ---
Author Organization [facility] Address [address] [facility] [place] [address] Phone Care Team Providers Care Zinc Miner Blasting Name Role Phone Donaldo Gamboa MD Primary Care Provider +1 -[phone] Provider, None Primary Care Provider Unavailabl e Reason for Visit * Reason Comments Medication Refill Encounter Details Date Type Department Care Team (Late st Contact Info) Description 05/31/2022 Refill [facility] - [place] #2 [place] [address] Donaldo Gamboa MD #[address] [address] Medication Refill Social History Tobacco Use Types [...] AM CDT Patient needs an appointment with PCP/WIREWORKER SUPERVISOR * Telephone Encounter - Uzma Deluca RN [...] Provider Dept 06/07/21 Office Visit Edward Yepez, CERTIFIED COMPOSITES TECHNICIAN, ALVARO [facility] Showing recent visits within past [...] Total Score: 0 11/16/20 20 10:44 AM FLEET MANAGER documented as of this encounter Care Teams Zinc Miner Blasting Relationship Specialty Start Date End Date Donaldo Gamboa MD #[address] [address] PCP - General Family Medicine 12/06/17 02/01/24 Provider, None [place] PCP - General 06/06/24 documented as of this encounter
--- OUTSIDE RECORDS SUMMARY | 2025-06-15 13:17 | XMS_ITS | Encounter Summary ---
Author Organization [facility] Address [address] [facility] [place] [address] Phone Care Team Providers Care Bar Host/Hostess Name Role Phone Donaldo Gamboa MD Primary Care Provider +1 -[phone] Provider, None Primary Care Provider Unavailabl e Reason for Visit * Reason Comments Medication Refill Encounter Details Date Type Department Care Team (Late st Contact Info) Description 09/29/2023 Refill [facility] #2 [place] [address] Donaldo Gamboa MD #[address] [address] Medication Refill Social History Tobacco Use Types [...] Total Score: 0 11/16/20 20 10:44 AM CYBER SECURITY ARCHITECT documented as of this encounter Care Teams Bar Host/Hostess Relationship Specialty Start Date End Date Donaldo Gamboa MD #[address] [address] PCP - General Family Medicine 12/06/17 02/01/24 Provider, None [place] PCP - General 06/06/24 documented as of this encounter
--- OUTSIDE RECORDS SUMMARY | 2025-06-15 13:17 | XMS_ITS | Encounter Summary ---
Author Organization [facility] Address [address] [facility] [place] [address] Phone Care Team Providers Care Web Sizer Name Role Phone Donaldo Gamboa MD Primary Care Provider +1 -[phone] Provider, None Primary Care Provider Unavailabl e Reason for Visit * Reason Comments Medication Refill Encounter Details Date Type Department Care Team (Late st Contact Info) Description 03/04/2022 Refill [facility] Medicine - [place] #2 [place] [address] Donaldo Gamboa MD #[address] [address] Medication Refill Social History Tobacco Use Types [...] Depression Total Score: 0 11/16/20 10:44 AM HOME TEACHING GRADES 7 AND 8 TEACHER documented as of this encounter Care Teams Web Sizer Relationship Specialty Start Date End Date Donaldo Gamboa MD #[address] [address] PCP - General Family Medicine 12/06/17 02/01/24 Provider, None [place] PCP - General 06/06/24 documented as of this encounter
--- OUTSIDE RECORDS SUMMARY | 2025-06-15 13:17 | XMS_ITS | Encounter Summary ---
Author Organization [facility] Address [address] [facility] [place] [address] Phone Care Team Providers Care Division Sales Manager Name Role Phone Donaldo Gamboa MD Primary Care Provider +1 -[phone] Provider, None Primary Care Provider Unavailabl e Reason for Visit * Reason Comments Medication Refill Encounter Details Date Type Department Care Team (Late st Contact Info) Description 08/28/2023 Refill [facility] #2 [place] [address] Donaldo Gamboa MD #[address] [address] Medication Refill Social History Tobacco Use Types [...] order placed on 07/31/2023 4:18 PM Order [id number]: diclofenac (VOLTAREN) 75 MG Tablet Delayed Response [...] 11/05/22 Office Visit Edward Yepez APRN, ALVARO [facility] [place] 10/16/22 Office Visit Donaldo Gamboa MD [facility] Showing recent visits within past 365 days [...] Total Score: 0 11/16/20 20 10:44 AM LEAD SHIPPER documented as of this encounter Care Teams Division Sales Manager Relationship Specialty Start Date End Date Donaldo Gamboa MD #[address] [address] PCP - General Family Medicine 12/06/17 02/01/24 Provider, None [place] PCP - General 06/06/24 documented as of this encounter
[2025-06-15 13:18] VITALS: BP 141/95; PULSE 115; RESP 16; TEMP 36.2; O2SAT 99
--- NOTE | 2025-06-15 13:24 | ED_ITS ---
HPI - Skin/Abscess/Foreign Bdy General Chief complaint: Skin/Abscess/Foreign Body Stated complaint: Right Pinky Finger Skin Sore Time Seen by Provider: 06/15/25 13:24 Source: patient Mode of arrival: ambulatory Limitations: no limitations History of Present Illness HPI narrative: 49 yo M presents with c/o pain to R pinky finger. Has raised painful bump. Is concerned for FB. recently had laceration with sutures to this area. Removed sutures himself. 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 ROM and distal NV intact. All systems reviewed and negative except as noted above. Related Data Home Medications ?Medication ?Instructions ?Recorded ?Confirmed ?Last Taken ?Type celecoxib 200 mg capsule mg 05/05/25 Unknown History Allergies Allergy/AdvReac Type Severity Reaction Status Date / Time No Known Allergies Allergy Verified 06/15/25 13:23 Review of Systems Review of Systems: CONSTITUTIONAL: Denies fever, chills, or sweats. EYES: Denies visual changes, redness, or discharge. ENT: Denies rhinorrhea, congestion, sore throat, or otalgia. CARDIOVASCULAR: Denies chest pain, palpitations, or edema. RESPIRATORY: Denies cough or dyspnea. GASTROINTESTINAL: Denies abdominal pain, nausea, vomiting, or diarrhea. GENITOURINARY: Denies dysuria or hematuria. SKIN: Denies rash or itching. Reports pain with rates bump to right pinky concerning for foreign body. MUSCULOSKELETAL: Denies back pain, joint pain, or myalgia. NEUROLOGIC: Denies headache, numbness, or weakness. PSYCHIATRIC: Denies anxiety or depression. All other systems reviewed are negative, except as documented in HPI. [facility] Past Medical History Medical History Anxiety Chronic knee pain Surgical History Surgical History History of tonsillectomy History of arthroscopy of left knee X3 Family History Family History Father Accidental in work place Social History Social History Social History: Surrogate decision-maker: Jocelyn Saleh, significant other. CODE STATUS: Full code Smoking packs per day: 2 Smoking cigarettes per day: 40.0 Years smoked: 30 Smoking pack-years: 60.00 Smoking status: Current every day smoker Alcohol intake: never Substance use: former Additional living arrangements comments: The patient lives with his family in [place]. 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 Spiritual care concerns: No Comments At time of signature, agree with nursing past medical, surgical, social and family history. There is no relevant family history pertinent to the presenting complaint. Exam Narrative: GENERAL: This is a well-nourished, well-developed patient, in no apparent distress. HEAD: normocephalic, atraumatic. EYES: PERRL. Sclera clear/white. Vision is grossly intact. EARS: External ears normal NOSE: External nose normal NECK: Neck supple, non-tender without lymphadenopathy, masses or thyromegaly. CARDIOVASCULAR: Regular rate and rhythm without murmurs, gallops, or rubs. RESPIRATORY: Clear to auscultation. Breath sounds equal bilaterally. No wheezes, rales, or rhonchi. SKIN: warm, Dry, intact with no suspicious lesions or rash, good texture and turgor. small abscess to palmar aspect R little finger at the pip. tender on palpation with mild erythema. no FB noted NEURO: awake, alert, and oriented to person, place and time. There were no obvious focal neurologic abnormalities. EXTREMITIES: No joint tenderness, effusion, or edema noted. Course Course Level of Care: Express Care Visit Vital Signs Vital signs: Vital Signs Temperature 36.2 C L 06/15/25 13:18 Pulse Rate 115 H 06/15/25 13:18 Respiratory Rate 06/15/25 13:18 Blood Pressure 141/95 H 06/15/25 13:18 Pulse Oximetry 99 06/15/25 13:18 Oxygen Delivery Room Air 06/15/25 13:18 Temperature 36.2 C L 06/15/25 13:18 Pulse Rate 115 H 06/15/25 13:18 Respiratory Rate 16 06/15/25 13:18 Blood Pressure 141/95 H 06/15/25 13:18 Pulse Oximetry 99 06/15/25 13:18 Oxygen Delivery Room Air 06/15/25 13:18 reviewed Procedures Abscess I/D hand: Date of Incision: 06/15/25 Time of Incision: 13:30 Side (if applicable): right (little finger) Sedation/analgesia: none Local Anesthetic: lidocaine 1% Amount of anesthesia used (mL): 1 Technique: incised with #11 blade Irrigation: Yes I&D Results: Pus and Blood Abcess I&D Additional Comments: abscess I and D with irrigation. no FB noted. MDM - Skin/Abscess/Foreign Bdy MDM Narrative Medical decision making narrative: no FB noted with I and D of abscess. NO FB on x-ray. Will treat with abx. NV intact pre and post procedure. Imaging Data My impression: agree with radiologist Radiologist's impression: XR finger 5th RT min 2V 06/15/2025 13:44 Indication: Possible foreign body Procedure: 4 views right fifth finger Comparison: 05/05/2025 Findings: There is polyarticular osteoarthritis. No fracture or traumatic malalignment. No foreign bodies identified. Mild soft tissue swelling. Impression: 1: No acute bone or joint abnormality. Mild soft tissue swelling. No foreign body. Discharge Plan Discharge Clinical Impression: Abscess of right little finger Patient Disposition: Home Condition: Stable Instructions: Antibiotic Form, Abscess Incision and Drainage (DC) Additional Instructions: the x-ray of your right little finger was normal. No foreign body was noted. Take antibiotic as prescribed until gone. Take ibuprofen or Tylenol every 6-8 hours as needed for pain. See your doctor as needed. Patient Language: Malagasy Prescriptions: New clindamycin HCl [Cleocin HCl] 300 mg capsule 300 mg PO Q8H 7 Days Qty: 21 0RF No Action tramadol 50 mg tablet 50 mg PO Q6H PRN (Reason: pain) Qty: 8 0RF celecoxib 200 mg capsule Follow-up/Referrals: UNKNOWN,DOCTOR [Primary Care Provider] - Time of Disposition: 14:03
== END 2025-06-15 14:07 | disposition home or self-care (01) ==
PROVIDERS: Emergency Provider Nurse Practitioner Family
DX: L02.511 Cutaneous abscess of right hand (principal); F17.210 Nicotine dependence, cigarettes, uncomplicated
CPT/HCPCS: 26010; 73140; 87070; 87205; 99213; G0463; J2003